=== PATIENT | female | born 1950 | race Caucasian/White ===

== ENCOUNTER 2024-04-11 14:04 | Inpatient (IN) ==
[2024-04-11] MEDS ORDERED: MAGNESIUM HYDROXIDE SUSP 30 ML UDC PO PRN (14:46)
[2024-04-11] MEDS ORDERED: ACETAMINOPHEN 325 MG TAB PO PRN (14:46)
[2024-04-11] MEDS ORDERED: POLYETHYLENE (MIRALAX) 17 GM PACK PO PRN (14:46)
--- NOTE | 2024-04-11 14:54 | History & Physical Report ---
<Statement entered by Trevin Moreno DO - 04/11/24 19:59> I have seen and examined the patient and have discussed the case with the advance practice provider. I have reviewed the advanced practitioner's documentation, and I agree with, and take responsibility for that plan of care. Patient seen on medical floor after being transferred from [place]. Reports excessive vomiting yesterday. Reeducated patient on need for n.p.o. status. Continue NG tube to LIS, IV fluids, surgical eval Plan of care as outlined below I spent a total of 14 minutes coordinating, documenting, and providing care for this patient excluding time spent by another provider/QHP. Date of Service April 11, 2024 Assessment & Plan (1) Small bowel obstruction: Plan: Concepcion Sellers is a 74y/o F with PMHx significant for hypothyroidism due to acquired atrophy of thyroid, HTN, HLD, uncomplicated asthma, GERD without esophagitis, SBO, vitamin B12 deficiency, lumbar DDD, plantar fasciitis, peripheral neuropathy, age-related osteoporosis, migraines, rheumatoid arthritis and history of LLE DVT/PE with pulmonary infarction (no longer on AC therapy) who is a direct transfer from [facility] with recurrent SBO requiring NG tube placement. CTAP results from [facility] obtained with the following impression: dilated fluid-filled small bowel loops suggestive of intestinal obstruction with the transitional zone suggested to be in the distal ileal loops at the mid-abdomen (immediately beneath the anterior abdominal wall). S/p 1L NSS at [facility]. NG tube placed at [facility]. Routine SBO management with NPO/bowel rest status and IVF. PRN pain control and antiemetics. Appreciate general surgery consult. (2) Hypothyroidism: Plan: Will need to resume home levothyroxine as able. (3) HTN (hypertension): Plan: Will need to resume home antihypertensives as able. Routine BP monitoring. PRN IV hydralazine 5mg Q4H for SBP>180. (4) Hyperlipidemia: Plan: Will need to resume home atorvastatin as able. (5) Rheumatoid arthritis: Plan: On Enbrel and Rinvoq - will need to resume these medications as able. DVT Prophylaxis: SCDs/TEDs for now. Code Status: FULL CODE PCP: Tawana Espinoza MD Disposition: Admit to Med/Surg for further inpatient evaluation and management. Resume additional home medications as/when able. Patient seen in collaboration with Dr. Moreno. Please see addendum. I spent a total of 50 minutes coordinating, documenting, and providing care for this patient excluding time spent in the performance of separately billed services or time spent by another provider/QHP. This included personally reviewing all current laboratories and imaging studies, medical reconciliation, outpatient chart review and discussion with specialists. This chart was completed in part utilizing Speech Voice Recognition Software. Grammatical errors, random word insertions, pronoun errors, and incomplete sentences are an occasional consequence of this system due to software limitations, ambient noise, and hardware issues. Any formal questions or concerns about the content, text, or information contained within the body of this dictation should be directly addressed to the provider for clarification. History of Present Illness Chief Complaint: Transfer from [facility]: Recurrent SBO Primary Care Provider: Tawana Espinoza MD Concepcion Sellers is a 74y/o F with PMHx significant for hypothyroidism due to acquired atrophy of thyroid, HTN, HLD, uncomplicated asthma, GERD without esophagitis, SBO, vitamin B12 deficiency, lumbar DDD, plantar fasciitis, peripheral neuropathy, age-related osteoporosis, migraines, rheumatoid arthritis and history of LLE DVT/PE with pulmonary infarction (no longer on AC therapy) who is a direct transfer from [facility] with recurrent SBO requiring NG tube placement. History obtained from the patient, paperwork provided by [facility] and associated chart review. Mentions she started to develop abdominal discomfort yesterday afternoon with pain across her lower abdominal region. She then started to experience numerous episodes of nausea and vomiting in the evening which prompted the call to EMS as she started to become quite dizzy. Mentions she vomited "well over 45 times." She was evaluated at [facility] and diagnosed with a SBO. NG tube was placed. [facility] unfortunately does not have general surgery services on-site, thus the reasoning for her transfer here to [facility]. CTAP results from [facility] obtained with the following impression: dilated fluid-filled small bowel loops suggestive of intestinal obstruction with the transitional zone suggested to be in the distal ileal loops at the mid-abdomen (immediately beneath the anterior abdominal wall). S/p 1L NSS at [facility]. This is her 4th SBO. Last SBO was about 10-12 years ago. All prior SBOs have been managed conservatively. PSHx significant for total abdominal hysterectomy at age 36, open cholecystectomy in her 20s and appendectomy. Last BM was yesterday afternoon - patient reports this was small and formed. Did pass some flatulence this afternoon. No further nausea/vomiting since NG tube was placed. Allergies Allergy/AdvReac Type Severity Reaction Status Date / Time amoxicillin Allergy Intermediate HIVES Verified 08/25/16 11:08 phenazopyridine Allergy Intermediate HIVES Verified 08/25/16 11:08 Nitrate Analogues Allergy Unknown Unverified 03/16/09 03:42 nitrofurantoin Allergy Unknown Unverified 03/16/09 03:42 propoxyphene Allergy Unknown Unverified 03/16/09 03:42 Home Medications Medication Instructions Recorded Confirmed Type ATORVASTATIN (LIPITOR) 20 mg PO DAILY #0 tabs 08/25/16 04/11/24 History albuterol sulfate 90 mcg/actuation 2 puff inhalation Q6H PRN SOB or 04/11/24 04/11/24 History aerosol inhaler Wheezing amlodipine 10 mg tablet 10 mg PO DAILY 04/11/24 04/11/24 History azelastine 137 mcg (0.1 %) nasal 1 spray intranasal BID 04/11/24 04/11/24 History spray calcium carb-ergocalciferol (vit 1 tab PO DAILY 04/11/24 04/11/24 History D2) 600 mg calcium-200 unit tablet cetirizine 10 mg tablet 10 mg PO DAILY 04/11/24 04/11/24 History cholecalciferol (vitamin D3) 25 25 mcg PO DAILY 04/11/24 04/11/24 History mcg (1,000 unit) tablet conjugated estrogens 0.625 mg/gram See Rx Instructions .Route .COMPLEX 04/11/24 04/11/24 History vaginal cream (Premarin) cyanocobalamin (vitamin B-12) 1,000 mcg PO DAILY 04/11/24 04/11/24 History 1,000 mcg tablet cyclosporine 0.05 % eye drops in a 1 drp ophthalmic (eye) Q12H 04/11/24 04/11/24 History dropperette (Restasis) esomeprazole magnesium 40 mg 40 mg PO DAILY 04/11/24 04/11/24 History capsule,delayed release etanercept 50 mg/mL (1 mL) 50 mg subcut WK 04/11/24 04/11/24 History subcutaneous pen injector (Enbredung Flaherty) fluticasone propionate 50 1 spray intranasal BID 04/11/24 04/11/24 History mcg/actuation nasal spray,suspension gabapentin 300 mg capsule 300 mg PO BID 04/11/24 04/11/24 History hydrocodone 5 mg-acetaminophen 325 1 tab PO Q12H PRN Back Pain 04/11/24 04/11/24 History mg tablet levothyroxine 25 mcg tablet 25 mcg PO DAILY 04/11/24 04/11/24 History (Euthyrox) linaclotide 290 mcg capsule 290 mcg PO QAM 04/11/24 04/11/24 History (Linzess) losartan 100 1 tab PO DAILY 04/11/24 04/11/24 History mg-hydrochlorothiazide 25 mg tablet metoprolol succinate 25 mg 25 mg PO DAILY 04/11/24 04/11/24 History tablet,extended release 24 hr montelukast 10 mg tablet 10 mg PO DAILY 04/11/24 04/11/24 History naloxegol 12.5 mg tablet (Movantik) 25 mg PO QAM 04/11/24 04/11/24 History oxybutynin chloride 5 mg tablet 5 mg PO BID 04/11/24 04/11/24 History plecanatide 3 mg tablet (Trulance) 3 mg PO DAILY 04/11/24 04/11/24 History polyethylene glycol 3350 17 gram 17 g PO DAILY 04/11/24 04/11/24 History oral powder packet (Miralax) propylene glycol 0.6 % eye drops 1 drp ophthalmic (eye) DAILY 04/11/24 04/11/24 History rizatriptan 10 mg tablet See Rx Instructions .Route 04/11/24 04/11/24 History .COMPLEX PRN Migraines semaglutide 0.25 mg or 0.5 mg (2 0.5 mg subcut WK 04/11/24 04/11/24 History mg/3 mL) subcutaneous pen injector (Ozempic) sucralfate 1 gram tablet 1 g PO QID 04/11/24 04/11/24 History topiramate 25 mg tablet (Topamax) 25 mg PO BID 04/11/24 04/11/24 History upadacitinib 15 mg tablet,extended 15 mg PO DAILY 04/11/24 04/11/24 History release 24 hr (Rinvoq) Past Med/Surg History Problem List Small bowel obstruction Medical History History of pulmonary embolism History of DVT (deep vein thrombosis) Migraines Plantar fasciitis Rheumatoid arthritis Osteoporosis Lumbar degenerative disc disease Vitamin B12 deficiency GERD (gastroesophageal reflux disease) Hyperlipidemia HTN (hypertension) Hypothyroidism Surgical History H/O abdominal hysterectomy Social History Smoking Status: Never smoker Hx Alcohol Use: No Hx Substance Use: No Preferred Language: Peruvian Communication Ability: Effective 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 Physical Exam Physical Exam: General: WD/WN, NAD, sitting up in bed, very pleasant, conversing appropriately. A+Ox3, euthymic affect. HEENT: Normocephalic, atraumatic. Conjunctivae normal. External ear and nose normal, oropharynx normal. Respiratory: Normal respiratory effort, lungs clear to auscultation. No accessory muscle use. Cardiovascular: Regular rate/rhythm, normal peripheral pulses, no BLE edema. Abdomen/GI: Hypoactive bowel sounds, soft, mild TTP across lower abdomen. Nondistended. + midline abdominal surgical scar. Extremities/Musculoskeletal: No cyanosis or clubbing, extremities motor strength intact, moves all extremities. Neurologic: No overt focal deficits, CN's II-XI not formally tested but appear grossly intact bilaterally. Results & Data Results & Data Vital Signs (Past 12 Hours) Vital Signs Temp Pulse Resp BP Pulse Ox O2 Del Method 04/11/24 16:36 37.1 C 83 16 135/85 94 Room Air Intake and Output 04/11/24 04/11/24 04/11/24 06:59 14:59 22:59 Other: Weight 77.111 kg Weight Measurement Method Built in [facility] Patient Weight 04/12/24 06:59 Weight 77.111 kg Laboratory Results Short CBC 04/11/24 Range/Units 16:04 WBC 8.18 (4.8-10.8) K/ul Hgb 12.7 (12.0-16.0) g/dl Hct 38.1 (37.0-47.0) % Plt Count 212 (130-400) K/uL BMP 04/11/24 16:04 Sodium 142 Potassium 3.7 Chloride 109 H Carbon Dioxide 28 BUN 17 Creatinine 1.04 Glucose 123 H Calcium 8.7 Code Status & VTE Plan Code Status FULL CODE VTE Prophylaxis Plan VTE Prophylaxis will be ordered: Yes (2) Hypothyroidism Hypothyroidism type: unspecified Qualified Code(s): E03.9 - Hypothyroidism, unspecified (3) HTN (hypertension) Hypertension type: unspecified Qualified Code(s): I10 - Essential (primary) hypertension (4) Hyperlipidemia Hyperlipidemia type: unspecified Qualified Code(s): E78.5 - Hyperlipidemia, unspecified (5) Rheumatoid arthritis Rheumatoid arthritis location: unspecified site Rheumatoid factor presence: unspecified presence Qualified Code(s): M06.9 - Rheumatoid arthritis, unspecified
[2024-04-11 16:37] LABS: Hematocrit (blood only) 38.1 % (37.0-47.0); Hemoglobin 12.7 g/dl (12.0-16.0); Mean Corpuscular Hemoglobin 31.1 pg (25.0-34.0); Mean Corpuscular Hgb Conc 33.3 g/dL (32.0-36.0); Mean Corpuscular Volume 93.4 fL (80.0-100.0); Mean Platelet Volume 10.3 fL (9.4-12.4); Platelet Count 212 K/uL (130-400); RDW Standard Deviation 51.8 fL (36.4-46.3); Red Blood Count 4.08 M/uL (4.20-5.40); White Blood Count 8.18 K/ul (4.8-10.8)
[2024-04-11 16:50] LABS: Anion Gap 5 (3-11); BUN Creatinine Ratio 16.3 (10-20); Blood Urea Nitrogen 17 mg/dl (6-23); Calcium 8.7 mg/dl (8.6-10.3); Carbon Dioxide 28 mmol/L (21-32); Chloride 109 mmol/L (98-107); Glucose 123 mg/dl (70-99(Fasting)); Potassium 3.7 mmol/L (3.5-5.1); Sodium 142 mmol/L (136-145)
--- NOTE | 2024-04-11 17:06 | Surgery Consultation ---
Date of Consultation April 11, 2024 Assessment & Plan (1) Small bowel obstruction: This is a 74yF with a PMH of rheumatoid arthritis, HTN, HLD, hypothyroidism, and asthma who presents to the [facility] as a direct admit on 04/11/24 from [facility] with concern for small bowel obstruction on CT scan imaging. She developed abdominal pain, nausea/vomiting that started yesterday. At [facility] she was imaged by CT scan which showed "dilated fluid-filled small bowel loops suggestive of intestinal obstruction. the transitional zone is suggested to be in the distal ileal loops in the mid-abdomen (immediately beneath the anterior abdominal wall)." Today she reports some ongoing mild nausea, but no recent em esis. She arrived with an NGT in place. She reports passing a small amount of gas today x1. She had a small BM yesterday. Patient reports a history of ~4 SBOs in the past, all managed conservatively, last one 12 years ago. Past surgery on the abdomen includes a total abdominal hysterectomy, open cholecystectomy (26years old), and appendectomy. The patient feels better than yesterday, but still sore. She has history of DVT/PE not on anticoagulation at this time. Today patient's blood work shows WBC 8,Hbg 12.7, K 3.7, Cr 1. Vital signs are stable with HRs 80s and stable pressures. On exam patient is pleasant and awake/alert and not in any distress. Her abdomen is soft, non distended, with mild discomfort elicited in the R mid abdomen and infra-umbilical regions. She has + low midline scar and prior open yayo scars noted. NGT is in place which should be connected to low intermittent wall suction. Would keep her NPO with IVF for today while awaiting more meaningful return of bowel function. May clamp NGT for her to walk the halls. Will repeat KUB tomorrow AM for further evaluation. At this time no acute surgical intervention is warranted. Hopefully she will continue to improve and get through this episode with conservative measures as she has in the past. Supervising Physician Co-Signing Physician Notes pnt d/w LAWRENCE, labs and imaging reviewed, agree with above. Admitted to [facility] for SBO, no surgery available at outside facility. Will treat non operatively for now, may need contrasted study if no improvement. History of Present Illness Attending Physician: Trevin Moreno DO History of Present Illness This is a 74yF with a PMH of rheumatoid arthritis, HTN, HLD, hypothyroidism, and asthma who presents to the [facility] as a direct admit on 04/11/24 from [facility] with concern for small bowel obstruction on CT scan imaging. The patient states she developed abdominal discomfort yesterday evening which then she developed nausea/vomiting. She said she vomited multiple times and it smelled like stool. She was dizzy and having chills with this. She was alone and called EMS who picked her up and took her to [facility] where she was imaged showing "dilated fluid-filled small bowel loops suggestive of intestinal obstruction. the transitional zone is suggested to be in the distal ileal loops in the mid- abdomen (immediately beneath the anterior abdominal wall)." The patient states her pain was 100/10 in severity. She denies any fevers, JACOBS, CP/SOB. She reports some ongoing mild nausea, but no recent emesis. She arrived with an NGT in place. She reports passing a small amount of gas today x1. She had a small BM yesterday. Patient reports a history of ~4 SBOs in the past, all managed conservatively, last one 12 years ago. Past surgery on the abdomen includes a total abdominal hysterectomy, open cholecystectomy (26years old), and appendectomy. The patient feels better than yesterday, but still sore. She has history of DVT/PE not on anticoagulation at this time. Allergies Allergy/AdvReac Type Severity Reaction Status Date / Time amoxicillin Allergy Intermediate HIVES Verified 08/25/16 11:08 phenazopyridine Allergy Intermediate HIVES Verified 08/25/16 11:08 Nitrate Analogues Allergy Unknown Unverified 03/16/09 03:42 nitrofurantoin Allergy Unknown Unverified 03/16/09 03:42 propoxyphene Allergy Unknown Unverified 03/16/09 03:42 Home Medications Medication Instructions Recorded Confirmed Type ATORVASTATIN (LIPITOR) 20 mg PO DAILY #0 tabs 08/25/16 04/11/24 History albuterol sulfate 90 mcg/actuation 2 puff inhalation Q6H PRN SOB or 04/11/24 04/11/24 History aerosol inhaler Wheezing amlodipine 10 mg tablet 10 mg PO DAILY 04/11/24 04/11/24 History azelastine 137 mcg (0.1 %) nasal 1 spray intranasal BID 04/11/24 04/11/24 History spray calcium carb-ergocalciferol (vit 1 tab PO DAILY 04/11/24 04/11/24 History D2) 600 mg calcium-200 unit tablet cetirizine 10 mg tablet 10 mg PO DAILY 04/11/24 04/11/24 History cholecalciferol (vitamin D3) 25 25 mcg PO DAILY 04/11/24 04/11/24 History mcg (1,000 unit) tablet conjugated estrogens 0.625 mg/gram See Rx Instructions .Route .COMPLEX 04/11/24 04/11/24 History vaginal cream (Premarin) cyanocobalamin (vitamin B-12) 1,000 mcg PO DAILY 04/11/24 04/11/24 History 1,000 mcg tablet cyclosporine 0.05 % eye drops in a 1 drp ophthalmic (eye) Q12H 04/11/24 04/11/24 History dropperette (Restasis) esomeprazole magnesium 40 mg 40 mg PO DAILY 04/11/24 04/11/24 History capsule,delayed release etanercept 50 mg/mL (1 mL) 50 mg subcut WK 04/11/24 04/11/24 History subcutaneous pen injector (Enbrel SureClick) fluticasone propionate 50 1 spray intranasal BID 04/11/24 04/11/24 History mcg/actuation nasal spray,suspension gabapentin 300 mg capsule 300 mg PO BID 04/11/24 04/11/24 History hydrocodone 5 mg-acetaminophen 325 1 tab PO Q12H PRN Back Pain 04/11/24 04/11/24 History mg tablet levothyroxine 25 mcg tablet 25 mcg PO DAILY 04/11/24 04/11/24 History (Euthyrox) linaclotide 290 mcg capsule 290 mcg PO QAM 04/11/24 04/11/24 History (Linzess) losartan 100 1 tab PO DAILY 04/11/24 04/11/24 History mg-hydrochlorothiazide 25 mg tablet metoprolol succinate 25 mg 25 mg PO DAILY 04/11/24 04/11/24 History tablet,extended release 24 hr montelukast 10 mg tablet 10 mg PO DAILY 04/11/24 04/11/24 History naloxegol 12.5 mg tablet (Movantik) 25 mg PO QAM 04/11/24 04/11/24 History oxybutynin chloride 5 mg tablet 5 mg PO BID 04/11/24 04/11/24 History plecanatide 3 mg tablet (Trulance) 3 mg PO DAILY 04/11/24 04/11/24 History polyethylene glycol 3350 17 gram 17 g PO DAILY 04/11/24 04/11/24 History oral powder packet (Miralax) propylene glycol 0.6 % eye drops 1 drp ophthalmic (eye) DAILY 04/11/24 04/11/24 History rizatriptan 10 mg tablet See Rx Instructions .Route 04/11/24 04/11/24 History .COMPLEX PRN Migraines semaglutide 0.25 mg or 0.5 mg (2 0.5 mg subcut WK 04/11/24 04/11/24 History mg/3 mL) subcutaneous pen injector (Ozempic) sucralfate 1 gram tablet 1 g PO QID 04/11/24 04/11/24 History topiramate 25 mg tablet (Topamax) 25 mg PO BID 04/11/24 04/11/24 History upadacitinib 15 mg tablet,extended 15 mg PO DAILY 04/11/24 04/11/24 History release 24 hr (Rinvoq) Patient History Medical History History of pulmonary embolism History of DVT (deep vein thrombosis) Migraines Plantar fasciitis Rheumatoid arthritis Osteoporosis Lumbar degenerative disc disease Vitamin B12 deficiency GERD (gastroesophageal reflux disease) Hyperlipidemia HTN (hypertension) Hypothyroidism Surgical History H/O abdominal hysterectomy Social History Smoking Status: Never smoker Hx Alcohol Use: No Hx Substance Use: No Preferred Language: Cook Islander Communication Ability: Effective 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 Beliefs That Will Affect Care: None Current Living Situation: Alone Feels Safe at Home: Yes Safety Concerns: Feels Safe At This Time Review of Systems Constitutional: + chills; no fever Respiratory: no dyspnea Cardiovascular: no chest pain Gastrointestinal: + abdominal pain, + bloating, + nausea, + vomiting and + constipation Physical Exam Physical Exam: awake/alert, no distress Respiratory: normal respiratory effort Gastrointestinal (Abdomen): Inspection/Auscultation: + abdominal surgical scar (from open yayo and infraumbilical midline scar); abdomen not distended Percussion/Palpation: + abdomen tender (mild discomfort in R mid abdomen and infraumbilical regions) and abdomen soft Results & Data Vital Signs (Past 12 Hours) Vital Signs Temp Pulse Resp BP Pulse Ox O2 Del Method 04/11/24 16:36 98.8 F 83 16 135/85 94 Room Air PG Care Time/CCT Total # of Minutes Spent Total Time Spent with Patient: Total time spent is greater than 50% in coordination of care (as documented) at patient's floor/unit and/or counseling patient: Coding Level of Care Code 33693 INT INP/OBS CARE MIN Diagnoses Small bowel obstruction K56.609
[2024-04-11] MEDS: SODIUM CHLORIDE 0.9% 1,000 ML IV SCH (17:14)
[2024-04-11] MEDS: Patient's HEIGHT &/or WEIGHT Needed SCH (17:14)
[2024-04-11] MEDS: ONDANSETRON INJ 2 MG/ML 2 ML VIAL IV PRN (17:56)
[2024-04-11] MEDS: KETOROLAC TROMETHAMINE 15 MG/ML VIAL IV PRN (17:56)
[2024-04-11] MEDS ORDERED: hydrALAZINE HCL 20 MG/ML VIAL IV PRN (19:02)
[2024-04-11] MEDS ORDERED: ARTIFICIAL TEARS OP PRN (19:15)
[2024-04-11] MEDS: MoRPHine SULFATE 2 MG/ML CARP IV PRN (19:35)
[2024-04-11] MEDS ORDERED: CHLORASEPTIC (PHENOL) 1.4% SOLN 180 ML BTL MT PRN (20:40)
--- OUTSIDE RECORDS SUMMARY | 2024-04-12 04:43 | External Medical Summary | Summary of Care ---
Author Name Unknown Organization [facility] Address [address] [facility] [place] [address] Phone [phone] Care Team Providers Care Mushroom Farmer Name Role Phone Tawana Mcgrath MD Primary Care Prov ider Reason for Visit * Reason Comments Outpatient Testing Encounter Details Date Type Department Care Team (Late st Contact Info) Description 04/04/2024 11:40 AM EST Laboratory Laboratory [address] [place] [phone] [place] [address] Lumbar degenerative disc disease Allergies Active Allergy Reactions Criticality Noted Date Comments Nitrofurantoin Rash 05/11/2015 Phenazopyridine Rash 05/11/2015 documented as of this encounter (statuses as of 04/04/2024) Medications losartan-hctz 100-25 mg per tab (HYZAAR) 100-25 MG per tabletIndications: HTN, goal below 150/90 Take 1 Tab by mouth daily. 30 Tab 5 12/18/19 18 Active Diclofenac Sodium 1 % gelIndications:Str ain of lumbar region, initial encounter Place 2 g topically on the skin 4 times a day. 1 Tube 1 03/02/19 19 Active RESTASIS 0.05 % ophthalmic emulsion PLACE ONE DROP IN EACH EYE TWICE DAILY 30 Each 11 08/11/19 19 Active Propylene Glycol 0.6 % Ophthalmic Solution Instill 1 Drop into eye in the morning. 04/20/19 19 Active BD LUER-DARRYL SYRINGE 25G X 5/8" 3 ML MISC Inject 1 Syringe under the skin Every Month. As directed. 0 10/01/19 19 Active polyethylene glycol 3350 (MIRALAX) 255 gram powderIndications: Constipation, unspecified constipation type Take 17 g by mouth daily. Dissolve one heaping tablespoon in 8 ounces of water or juice. 1 Bottle 2 02/18/19 20 Active EUTHYROX 25 MCG Tablet Take 1 Tablet by mouth in the morning. 06/29/19 20 Active Premarin 0.625 MG/GM Vaginal Cream APPLY 0.5 GRAMS VAGINALLY TWICE A WEEK 42.5 g 4 04/02/19 21 Active Calcium + D 500-1000-40 MG-UNT-MCG Oral Tablet Chewable (Calcium-Vitamin D-Vitamin K)Indications:Wris t fracture, closed, right, with delayed healing, subsequent encounter Take 1 Tab by mouth daily. 90 Tab 3 12/07/19 21 Active Azelastine HCl 0.1 % Nasal SolutionIndication s:Acute sinusitis, recurrence not specified, unspecified location SPRAY ONE SPRAY IN EACH NOSTRIL TWICE DAILY 30 mL 12 03/01/19 22 Active Cyanocobalamin 1000 MCG Oral Tablet (Cyanocobalamin) Take 1 Tablet by mouth in the morning. 07/17/19 22 Active Vitamin D (Cholecalciferol) 25 MCG (1000 UT) Oral Capsule Take by mouth . 07/17/19 22 Active Zoster Vac Recomb Adjuvanted 50 MCG/0.5ML Intramuscular Suspension Reconstituted (Shingrix)Indicati ons:Need for vaccination for zoster Inject 0.5 mL into a large muscle now and repeat dose in 60 to 180 days 1 Each 1 07/17/19 22 Active Additional Information Patient not taking.Reported on 03/14/2024 Rizatriptan Benzoate 10 MG Oral Tablet (Maxalt)Indication s:Migraine without aura and without status migrainosus, not intractable Take 1 Tablet by mouth as needed for Migraine. at onset of headache, may repeat every 2 hours up to 2 times. Up to 3 tablets in 24 hours 20 Tablet 3 02/11/19 23 Active Hydrocortisone (Perianal) 2.5 % External Cream (Procto-Med HC)Indications:Hem orrhoid Administer into the rectum 2 times a day. 28 g 5 01/01/20 23 Active Atorvastatin Calcium 20 MG Oral Tablet (Lipitor)Indicatio ns:Elevated LDL cholesterol level Take 1 Tablet by mouth in the morning. 90 Tablet 3 01/15/20 23 Active Fluticasone Propionate 50 MCG/ACT Nasal Suspension (Flonase) PLACE TWO SPRAYS IN EACH NOSTRIL DAILY 48 g 1 05/06/19 24 Active Montelukast Sodium 10 MG Oral Tablet (Singulair)Indicat ions:Chronic maxillary sinusitis,Allergy to environmental factors Take 1 Tablet by mouth in the morning. 90 Tablet 3 07/01/19 24 Active Sucralfate 1 GM Oral Tablet (Carafate)Indicati ons:Gastroesophage al reflux disease without esophagitis,Epigas tric pain Take 1 Tablet by mouth 4 times a day before meals and at bedtime. half an hour before meals and at bedtime 360 Tablet 3 07/01/19 24 Active Metoprolol Succinate ER 25 MG Oral Tablet Extended Release 24 Hour (toPROL XL)Indications:HTN , goal below 150/90 TAKE ONE TABLET BY MOUTH EVERY MORNING 90 Tablet 2 10/06/19 24 Active Ondansetron HCl 8 MG Oral TabletIndications: Nausea and vomiting, unspecified vomiting type Take 1 Tablet by mouth every 12 hours as needed for Nausea. 20 Tablet 11/05/19 24 Active Potassium Chloride ER 10 MEQ Oral Capsule Extended ReleaseIndications :Hypokalemia Take 1 Capsule by mouth in the morning. 90 Capsule 3 01/01/20 24 Active amLODIPine Besylate 10 MG Oral Tablet (Norvasc)Indicatio ns:HTN, goal below 150/90 TAKE ONE TABLET BY MOUTH EVERY MORNING 90 Tablet 1 01/05/20 24 Active Cetirizine HCl 10 MG Oral Tablet (ZyrTEC) TAKE ONE TABLET BY MOUTH EVERY MORNING 30 Tablet 5 01/17/20 24 Active Albuterol Sulfate HFA 108 (90 Base) MCG/ACT Inhalation Aerosol SolutionIndication s:History of pulmonary embolism Inhale 2 Puffs by mouth every 6 hours as needed for Shortness of Breath. 8.5 g 3 02/09/19 25 Active Movantik 25 MG Oral Tablet Take 1 Tablet by mouth in the morning. 12/11/19 24 Active Trulance 3 MG Oral Tablet Take 1 Tablet by mouth in the morning. 12/09/19 24 Active oxyBUTYnin Chloride 5 MG Oral Tablet (Ditropan) Take 1 Tablet by mouth in the morning and 1 Tablet before bedtime. 01/06/20 24 Active hydroCHLOROthiazid e 25 MG Oral Tablet (Hydrodiuril) Take 1 Tablet by mouth in the morning. 12/19/19 24 Active Topiramate 25 MG Oral Tablet (topAMAX)Indicatio ns:Migraine without aura and without status migrainosus, not intractable TAKE ONE TABLET BY MOUTH IN THE MORNING AND AT BEDTIME 60 Tablet 5 03/21/19 25 Active Esomeprazole Magnesium 40 MG Oral Capsule Delayed ReleaseIndications :Gastroesophageal reflux disease without esophagitis TAKE ONE CAPSULE BY MOUTH IN THE MORNING, ONE HOUR BEFORE THE FIRST MEAL OF THE DAY 90 Capsule 1 03/30/19 25 Active Enbrel SureClick 50 MG/ML Subcutaneous Solution Auto-injector (Etanercept) Inject 1 pen(s) subcutaneously once weekly. 12 mL 04/04/19 25 Active HYDROcodone-Acetam inophen 5-325 MG Oral TabletIndications: Degeneration of intervertebral disc of lumbar region with discogenic back pain Take 1 Tablet by mouth every 12 hours as needed for Pain, Mild. 60 Tablet 04/04/19 25 Active Minoxidil 2.5 MG Oral Tablet (Loniten)Indicatio ns:Hair loss Take 0.5 Tablets by mouth in the morning. 45 Tablet 04/04/19 25 Active Hospital, Clinic, or Other Facility Administered Medication Ordered Dose Route Frequency Start Date End Date Status Albuterol Sulfate (Proventil) (2.5 MG/3ML) 0.083% inhalation solution 2.5 mgIndications:Uncomplic ated asthma, unspecified asthma severity, unspecified whether persistent 2.5 mg NEBULIZER ONCE PRN 04/04/2024 04/04/2025 Active documented as of this encounter (statuses as of 04/04/2024) Active Problems Problem Noted Date Diagnosed Date Hypothyroidism 04/04/2024 Age-related osteoporosis wit hout current pathological fracture 04/04/2024 Uncomplicated asthma 04/04/2024 Nausea and/or vomiting 01/14/2023 Family history of carotid artery stenosis 2022 Controlled substance agreement signed 10/04/2021 Chest pain 01/23/2021 Multiple lipomas 12/06/2020 Wrist fracture, closed, righ t, with delayed healing, subsequent encounter 12/06/2020 Closed fracture of right upp er extremity with delayed healing 08/23/2020 Pure hypercholesterolemia 02/18/2019 Left thyroid nodule 01/22/2019 Overview (07/16/2021): Last US 06/2020. Repeat in 2022. 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 d 05/11/2015 documented as of this encounter (statuses as of 04/04/2024) Resolved Problems Problem Noted Date Diagnosed Date Resolved Date Prediabetes 09/17/2020 10/23/2022 Overview: Per Prediabetes protocol MEDICATION USE AGREEMENT 03/26/201701/2019 DM type 2 with diabetic peripheral neuropathy 06/20/19 17 02/20/2019 Intestinal adhesions with obstruction 05/11/2015 07/30/2017 Peripheral neuropathy 05/11/20152016 Type 2 diabetes mellitus wit h hemoglobin A1c goal of less than 7.0% 05/11/2015 02/20/2019 Overview (06/05/2015): ICD-10 update of inactive term documented as of this encounter (statuses as of 04/04/2024) Immunizations Name Administration Dates Next Due COVID-19 mRNA, LNP-s, No Pre serve, 2-Dose Series ([employer]) 01/07/2021,03/19/2020,02/27/2020 Pneumococcal Conjugate Vacc, 13 Valent (Prevnar) 11/13/2016 Pneumococcal Polysaccharide PPV23 (Pneumovax) 03/20/2015 Season Influenza, Quad, PF, Adjuvanted, 65+ Yrs, IM (FLUAD) 02/06/2020 Seasonal Influenza Vac., MDV , IM, 0.5 mL (Fluzone) 11/17/2014 Seasonal Influenza, High Dos e, Trivalent, PF, IM (Fluzone HD) 11/24/2023 Seasonal Influenza, PF, 6 M & above, IM , (FluLaval or Fluzone) 12/03/2017,11/13/2016 Seasonal Influenza, Quadriva lent Hd (Fluzone Hd) 04/22/2023,01/15/2022,12/06/2020 Seasonal Influenza, Quadriva lent, No Preserve, IM 11/17/2014 Seasonal Influenza, Quadriva lent,with Preserve, 3 yr & above, IM 02/07/2016 Seasonal Influenza, Trivalen t, Adjuvanted, 65+ YRS, PF, (Fluad) 10/18/2018 TDAP (age 10 and older)(Boostrix) 07/07/2017 documented as of this encounter Social History Tobacco Use Types Packs/Day Years Used Date Smoking Tobacco: Former Smokeless Tobacco: Never Comments:smoked a couple vj es as teenager Alcohol Use Standard Drinks/Week Comments Never 0 (1 standard drink = 0.6 oz pur e alcohol) AUDIT-C Answer Date Recorded Frequency of Alcohol Consumption Never 10/27/2018 Average Number of Drinks Not on file 019 Frequency of Binge Drinking Not on file 10/10 PHQ-2 Answer Date Recorded PHQ Adult Total Score 1 03/14/2024 Hunger Vital Sign Answer Date Recorded Within the past 12 months, y ou worried that your food would run out before you got the money to buy more. Never true 03/14/19 25 Within the past 12 months, t he food you bought just didn't last and you didn't have money to get more. Never true 03/14/2024 Childcare Answer Date Recorded Do you feel overwhelmed with taking care of a child, family member or friend? No 03/14/2024 Does your family need help f inding childcare? (Household - for ages 0-17 years) Not on file 03/14/2024 Clothing Answer Date Recorded Have you been unable to get clothing when it was really needed? No 03/14/2024 Is your family able to get c lothes or diapers when needed? (Household - for ages 0-17 years) Not on file 03/14/2024 Personal Safety Answer Date Recorded Do you feel unsafe or have concerns for your saf ety? No 03/14/2024 Do you have concerns for you r family's safety? (Household - for ages 0-17 years) Not on file 03/14/2024 Utilities Answer Date Recorded Do you have trouble paying y our heating, water, or electric bill? No 03/14/2024 Is your family able to pay t he heat, water, or electric bill? (Household - for ages 0-17 years) Not on file 03/14/2024 Does your family have access to good internet? (Household - for ages 0-17 years) Not on file 03/14/2024 Employment Status Answer Date Recorded Are you unemployed or without regular income? No 03/14/2024 Does the household have a re lar source of income? (Household - for ages 0-17 years) Not on file 03/14/2024 Social Connections Answer Date Recorded How often do you feel lonely or isolated from th ose around you? Never 03/14/2024 Financial Resource Strain Answer Date R ecorded Do you have any trouble payi ng for your medications, or do you think you might in the future? No 03/14/2024 Does your family have troubl e paying for medicine? (Household - for ages 0-17 years) Not on file 03/14/2024 Transportation Needs Answer Date Record ed Do you have trouble getting a ride to medical visits or work? (Adult - for ages 18 years and over) Not on file 03/14/2024 Does your family have a hard time getting a ride to doctors visits? (Household - for ages 0-17 years) Not on file 03/14/2024 Has lack of transportation k ept you from medical appointments, meetings, work, or from getting things needed for daily living? Check all that apply. No 03/14/2024 Do you (or your family) have trouble finding or paying for a ride (transportation)? (Household - for ages 0-17 years) Not on file 03/14/2024 Housing Stability Answer Date Recorded Do you currently live in a s helter or have no steady place to sleep at night? No 03/14/2024 Do you think you are at risk of becoming homeless? (Adult - for ages 18 years and over) Not on file 03/14/2024 Does your family worry about paying for your home or becoming homeless? (Household - for ages 0-17 years) Not on file 0 03/14/2024 Are you homeless or worried that you might be in the future? No 03/14/2024 Are you (or your family) dayna eless or worried that you might be in the future? (Household - for ages 0-17 years) Not on file Food Insecurity Answer Date Recorded Do you need food for this week? No 03/14/2024 Are you able to get enough f ood for your family? (Household - for ages 0-17 years) Not on file 03/14/2024 Does your family need food t his week? (Household - for ages 0-17 years) Not on file 03/14/2024 Do you always have enough fo od for your family? (Household - for ages 0-17 years) Not on file 03/14/2024 Food Insecurity Answer Date Recorded Within the past 12 months, y ou worried that your food would run out before you got the money to buy more. Never true 03/14/19 25 Within the past 12 months, t he food you bought just didn't last and you didn't have money to get more. Never true 03/14/2024 Do you need food for this week? No 03/14/2024 Comments No Sex and Gender Information Value Date Recorded Sex Assigned at Female 06/08/2018 5:03 PM EDT Legal Sex Female 7:07 AM EST Gender Identity Female 06/08/2018 5:03 PM EDT Sexual Orientation Straight 06/08/2018 5: 03 PM EDT documented as of this encounter Plan of Treatment Upcoming Encounters Date Type Department Care Team (Late st Contact Info) Description 04/13/2024 10:00 AM EST Telemedicine Sleep Disorders Ctr [facility] [address] [phone] Elizabeth Escoto DO [address] [place] [phone] 04/14/2024 11:00 AM EST Office Visit Orthopaedics [address] [phone] Trav Ramirez MD [address] [place] [phone] 04/25/2024 10:00 AM EDT PulmDiagnostic Pulmonary Function Lab, [facility] [address] [place] [address] [place], Pulm Function Tech [address] [place] [id number] 05/18/2024 10:30 AM EDT Imaging Radiology [facility] [address] [place] [phone] 07/25/2024 9:00 AM EDT Office Visit [address] [place] [phone] Tawana Mcgrath MD [address] [place] [address] [place] [phone] Pending Results Name Type Priority Associated Diagnoses Date /Time PAIN MANAGEMENT DRUG PANEL, URINE W/ INTERPRETATION Lab Routine Lumbar degenerative disc disease 04/04/2024 11:38 AM EST EXTRA URINE ALIQUOT Lab Routine Lumbar degenerative disc disease 04/04/2024 11:38 AM EST Health Maintenance Due Date Last Done Comments Zoster Vaccines (1 of 2) 1969 Cologuard 1995 Fecal Occult Blood Test 1995 Sigmoidoscopy 1995 Adult Wellness Visit 02/23/2016 COVID-19 Vaccine ( season) 2023 01/07/2021, 03/19/2020, 02/27/2020 Mammogram 05/17/2024 05/18/2023, 0 08/2022, 02/14/2021, Additional history exists GFR 11/23/2024 11/24/2023, 0 08/2023, 10/17/2022, Additional history exists TSH 11/23/2024 11/24/2023, 06/09, 10/17/2022, Additional history exists Depression Screening 03/14/2025 03/14/2024 Albumin/Creatinine Ratio 10/17/2025 023, 01/15/2022, 02/18/2019, Additional history exists DXA Scan 02/18/2026 02/19/2024, 07/08/2017 DTap/Tdap Vaccines (2 - Td or Tdap) 07/08/2027 07/07/2017 Lipid Panel 11/23/2028 11/24/2023, 09/0 09/2022, 07/16/2021, Additional history exists Colonoscopy 07/13/2033 07/14/2023, 09/06/2013 Colorectal Cancer Screening 07/13/2033 Pneumococcal Vaccine: 50+ Years Completed 11/13/2016, 03/20/2015 VITAMIN D LEVEL ONCE IN A LIFETIME-USE SMARTSET# [id number] Completed 12/17/2017 Influenza Vaccine (FLU shot) Completed , 04/22/2023, 01/15/2022, Additional history exists HPV (Gardasil) Vaccine Aged Out No lo nger eligible based on patient's age to complete this topic Hepatitis B Vaccine Aged Out No longe r eligible based on patient's age to complete this topic MENINGOCOCCAL (MENACTRA/MENVEO) Aged Out No longer eligible based on patient's age to complete this topic Meningitis B Vaccine (Bexsero/Trumemba) Aged Out No longer eligible based on patient's age to complete this topic documented as of this encounter Medical Devices Not on filedocumented as of this encounter Visit Diagnoses Diagnosis Lumbar degenerative disc disease Degeneration of lumbar or lumbosacral intervertebral disc Screening mammogram for breast cancer documented in this encounter Care Teams Mushroom Farmer Relationship Specialty Start Date End Date Tawana Mcgrath MD [address] [place] [address] [place] [id number] PCP - General Family Medicine 12/25/20 documented as of this encounter
--- OUTSIDE RECORDS SUMMARY | 2024-04-12 04:43 | External Medical Summary | Summary of Care ---
Author Name Unknown Organization [facility] Address [address] [place] [address] Phone [phone] Care Team Providers Care Leather Patcher Name Role Phone Tawana Mcgrath MD Primary Care Prov ider Reason for Referral * Evaluate & Treat - Unlimited Visits (Within 10 days (routine)) - Authorized Specialty Diagnoses / Procedures Referred By Contac t Referred To Contact Sleep Medicine / Sleep Disorders Diagnoses Daytime somnolence Obstructive sleep apnea of adult Tawana Mcgrath MD [address] [place] [address] [place] [address] Phone: tel: fax: Referral ID Status Reason Start Date Expiration Date Visits Requested Visits Authorized [id number] Authorized Specialty Services Required 04/04/2024 2 2 Question Answer Referral Priority Within 10 days (routine) Where should this appointment be scheduled? [facility] CAD SLEEP MED ADULT REFERRAL Sleep Apnea Testing and Management Does the patient snore and/or gasp at night or has been told they stop breathing at night? Yes, document patient's symptoms in progress note Reason for Visit * Reason Comments Acute Encounter Details Date Type Department Care Team (Latest Contact Info) Description 04/04/2024 10:40 AM EST Office Visit Family Medicine [address] [place] [address] [phone] Tawana Mcgrath MD [address] [place] [address] [place] [address] Daytime somnolence*; Obstructive sleep apnea of adult; Migraine without aura and without status migrainosus, not intractable; HTN, goal below 150/90; Hypothyroidism, unspecified type; Age-related osteoporosis without current pathological fracture; Pure hypercholesterolemia; Rheumatoid arthritis with negative rheumatoid factor, involving unspecified site (HCC); Uncomplicated asthma, unspecified asthma severity, unspecified whether persistent; Hip pain, left; Degeneration of intervertebral disc of lumbar region with discogenic back pain; Hair loss Allergies Active Allergy Reactions Criticality Noted Date Comments Nitrofurantoin Rash 05/11/2015 Phenazopyridine Rash 05/11/2015 documented as of this encounter (statuses as of 04/04/2024) Medications losartan-hctz 100-25 mg per tab (HYZAAR) 100-25 MG per tabletIndications :HTN, goal below 150/90 Take 1 Tab by mouth daily. 30 Tab 5 12/18/19 18 Active Diclofenac Sodium 1 % gelIndications:St rain of lumbar region, initial encounter Place 2 [...] Active polyethylene glycol 3350 (MIRALAX) 255 gram powderIndications :Constipation, unspecified constipation type Take 17 g by [...] 500-1000-40 MG-UNT-MCG Oral Tablet Chewable (Calcium-Vitamin D-Vitamin K)Indications:Wri st fracture, closed, right, with delayed healing, subsequent encounter Take 1 Tab by mouth daily. 90 Tab 3 12/07/19 21 Active Azelastine HCl 0.1 % Nasal SolutionIndicatio ns:Acute sinusitis, recurrence not specified, unspecified location SPRAY ONE SPRAY IN EACH NOSTRIL TWICE DAILY 30 mL 12 03/01/19 22 Active Cyanocobalamin 1000 MCG Oral Tablet (Cyanocobalamin) Take 1 Tablet by mouth in the morning. 07/17/19 22 Active Vitamin D (Cholecalciferol) 25 MCG (1000 UT) Oral Capsule Take by mouth . 07/17/19 22 Active Zoster Vac Recomb Adjuvanted 50 MCG/0.5ML Intramuscular Suspension Reconstituted (Shingrix)Indicat ions:Need for vaccination for zoster Inject 0.5 mL into a large muscle now and repeat dose in 60 to 180 days 1 Each 1 07/17/19 22 Active Additional Information Patient not taking.Reported on 03/14/2024 Rizatriptan Benzoate 10 MG Oral Tablet (Maxalt)Indicatio ns:Migraine without aura and without status migrainosus, not intractable Take 1 Tablet by mouth as needed for Migraine. at onset of headache, may repeat every 2 hours up to 2 times. Up to 3 tablets in 24 hours 20 Tablet 3 02/11/19 23 Active Hydrocortisone (Perianal) 2.5 % External Cream (Procto-Med HC)Indications:He morrhoid Administer into the rectum 2 times a day. 28 g 5 01/01/20 23 Active Atorvastatin Calcium 20 MG Oral Tablet (Lipitor)Indicati ons:Elevated LDL cholesterol level Take 1 Tablet by mouth in the morning. 90 Tablet 3 01/15/20 23 Active Fluticasone Propionate 50 MCG/ACT Nasal Suspension (Flonase) PLACE TWO SPRAYS IN EACH NOSTRIL DAILY 48 g 1 05/06/19 24 Active Montelukast Sodium 10 MG Oral Tablet (Singulair)Indica tions:Chronic maxillary sinusitis,Allergy to environmental factors Take 1 Tablet by mouth in the morning. 90 Tablet 3 07/01/19 24 Active Sucralfate 1 GM Oral Tablet (Carafate)Indicat ions:Gastroesopha geal reflux disease without esophagitis,Epiga stric pain Take 1 Tablet by mouth 4 times a day before meals and at bedtime. half an hour before meals and at bedtime 360 Tablet 3 07/01/19 24 Active Metoprolol Succinate ER 25 MG Oral Tablet Extended Release 24 Hour (toPROL XL)Indications:HT N, goal below 150/90 TAKE ONE TABLET BY MOUTH EVERY MORNING 90 Tablet 2 10/06/19 24 Active Ondansetron HCl 8 MG Oral TabletIndications :Nausea and vomiting, unspecified vomiting type Take 1 Tablet by mouth every 12 hours as needed for Nausea. 20 Tablet 11/05/19 24 Active Potassium Chloride ER 10 MEQ Oral Capsule Extended ReleaseIndication s:Hypokalemia Take 1 Capsule by mouth in the morning. 90 Capsule 3 01/01/20 24 Active amLODIPine Besylate 10 MG Oral Tablet (Norvasc)Indicati ons:HTN, goal below 150/90 TAKE ONE TABLET BY MOUTH EVERY MORNING 90 Tablet 1 01/05/20 24 Active Cetirizine HCl 10 MG Oral Tablet (ZyrTEC) TAKE ONE TABLET BY MOUTH EVERY MORNING 30 Tablet 5 01/17/20 24 Active Albuterol Sulfate HFA 108 (90 Base) MCG/ACT Inhalation Aerosol SolutionIndicatio ns:History of pulmonary embolism Inhale 2 Puffs by [...] 1 Tablet before bedtime. 01/06/20 24 Active hydroCHLOROthiazi de 25 MG Oral Tablet (Hydrodiuril) Take 1 Tablet by mouth in the morning. 12/19/19 24 Active Topiramate 25 MG Oral Tablet (topAMAX)Indicati ons:Migraine without aura and without status migrainosus, not intractable TAKE ONE TABLET BY MOUTH IN THE MORNING AND AT BEDTIME 60 Tablet 5 03/21/19 25 Active Esomeprazole Magnesium 40 MG Oral Capsule Delayed ReleaseIndication s:Gastroesophagea l reflux disease without esophagitis TAKE ONE CAPSULE BY MOUTH IN THE MORNING, ONE HOUR BEFORE THE FIRST MEAL OF THE DAY 90 Capsule 1 03/30/19 25 Active Enbrel SureClick 50 MG/ML Subcutaneous Solution Auto-injector (Etanercept) Inject 1 pen(s) subcutaneously once weekly. 12 mL 04/04/19 25 Active HYDROcodone-Aceta minophen 5-325 MG Oral TabletIndications :Degeneration of intervertebral disc of lumbar region with discogenic back pain Take 1 Tablet by mouth every 12 hours as needed for Pain, Mild. 60 Tablet 04/04/19 25 Active Minoxidil 2.5 MG Oral Tablet (Loniten)Indicati ons:Hair loss Take 0.5 Tablets by mouth in the morning. 45 Tablet 04/04/19 25 Active Benzonatate 100 MG Oral Capsule (Tessalon Perles) Take 1 Capsule by mouth 3 times a day as needed for Cough. Do not cut, crush, or chew. 50 Capsule 1 02/17/19 24 025 Disconti nued(Pat ient preferen ce/disco ntinuati on) Rinvoq 15 MG Oral Tablet Extended Release 24 Hour (Upadacitinib ER) Take by mouth daily. 025 Disconti nued(Pat ient preferen ce/disco ntinuati on) Linzess 290 MCG Oral Capsule (linaCLOtide)Leora cations:Chronic constipation TAKE ONE CAPSULE BY MOUTH BEFORE BREAKFAST 90 Capsule 1 05/12/19 24 025 Disconti nued(Pat ient preferen ce/disco ntinuati on) Movantik 12.5 MG Oral Tablet (Naloxegol Oxalate) Take 1 Tablet by mouth in the morning. 11/24/19 24 025 Disconti nued(Pat ient preferen ce/disco ntinuati on) Minoxidil 2.5 MG Oral Tablet (Loniten)Indicati ons:Hair loss Take 0.5 Tablets by mouth in the morning. 45 Tablet 11/30/19 24 025 Disconti nued(Ref ill) Doxycycline Hyclate 100 MG Oral CapsuleIndication s:Acute frontal sinusitis, recurrence not specified Take 1 Capsule by mouth in the morning and 1 Capsule before bedtime. Do all this for 7 days. Take for 7 days. 14 Capsule 12/08/19 24 025 Disconti nued(Pat ient preferen ce/disco ntinuati on) HYDROcodone-Aceta minophen 5-325 MG Oral TabletIndications :Lumbar degenerative disc disease Take 1 Tablet by mouth every 12 hours as needed for Pain, Mild. 60 Tablet 03/03/19 25 025 Disconti nued(Ref ill) valACYclovir HCl 500 MG Oral Tablet (Valtrex) Take 1 Tablet by mouth 2 times a day as needed. 12/23/19 24 025 Disconti nued(Helen seaman ce/petersono shireen on) Hospital, Clinic, or Other Facility Administered Medication [...] mRNA, LNP-s, No Pre serve, 2-Dose Series ([place]) 01/07/2021,03/19/2020,02/27/2020 Pneumococcal Conjugate Vacc, 13 Valent (Prevnar) [...] 03/14/2024 Does the household have a re gular source of income? (Household - for ages [...] PM EDT documented as of this encounter Last Filed Vital Signs Vital Sign Reading Time Taken Comments Blood Pressure 130/70 04/04/2024 10:24 AM EST Pulse 60 04/04/2024 10:24 AM EST Temperature 36 C (96.8 F) 04/04/2024 10:24 AM EST Respiratory Rate 16 04/04/2024 10:24 AM EST Oxygen Saturation - - Inhaled Oxygen Concentration - - Weight 77.6 kg (171 lb) 04/04/2024 10:24 AM EST Height 156.5 cm (5' 1.6") 04/04/2024 10:24 AM ES T Body Mass Index 31.68 04/04/2024 10:24 AM EST documented in this encounter Progress Notes * Jesus Hawkins, Tawana Diaz MD - 04/04/2024 10:55 AM EST Images from the original note were not included. Subjective Concepcion Sellers is a 74 year old female that presents for Acute History of Present Illness The patient, with a history of hypertension, asthma, rheumatoid arthritis, and cholelithiasis, presents with persistent leg pain that has been present for about three to four weeks. The pain originates from the hip and radiates down the leg, causing significant discomfort and sleep disturbances. The patient had previously been evaluated for a potential blood clot, but the results were negative. The patient also reports bilateral elbow pain, with a clicking sound noted in the right elbow. The patient has a history of tendonitis in both elbows and has previously received injections for pain relief. The patient also reports episodes of difficulty breathing during sleep, describing it as a sensation of not breathing and needing to catch a breath. These episodes occur mostly during sleep but have occasionally occurred while awake. The patient uses an albuterol inhaler for immediate relief. The patient reports feeling tired all the time and has a history of asthma. The patient also expresses concerns about weight management and has been on Wegovy for weight loss.However, the patient's insurance has denied coverage for this medication. The patient has been advised to consult with a vice president lending for a diet plan to aid in weight loss. The patient also has concerns about potential thyroid and carotid artery issues, given a family history of stroke and personal history of thyroid nodules. However, recent blood work and carotid duplex were reported as normal. Objective Vitals: 04/04/24 1024 Temp: 96.8 F (36 C) Pulse: 60 Resp: 16 BP: 130/70 BMI: 31.67 Physical Exam VITALS: BP- 130/70 NECK: Thyroid normal. CARDIOVASCULAR: Heart regular rate and rhythm, normal heart sounds. ABDOMEN: Abdomen soft, normal bowel sounds. I have reviewed the following results: Results LABS TSH: 1.03 (11/2023) LDL: 81 (11/2023) Blood glucose: 5.5 (11/2023) RADIOLOGY Carotid duplex: Normal (04/2022) Assessment and Plan Assessment & Plan Left Hip Pain Persistent pain radiating down the leg, possibly secondary to a pinched nerve or hip pathology. No recent trauma or injury reported. -Order hip X-ray to evaluate for any structural abnormalities. Tendonitis in Elbows Reports of clicking in the right elbow and previous treatment with injections. Discussed potential surgical intervention but patient prefers conservative management. -Refer to orthopedics for further evaluation and potential injection therapy. Asthma Reports of episodes of waking up unable to breathe, relieved by albuterol. No current wheezing or coughing. -Order pulmonary function tests to assess current lung function. -Consider referral to sleep medicine for evaluation of potential sleep apnea. Chronic Pain Management Currently on hydrocodone for pain management, requires urine drug screen for continued prescription. -Order urine drug screen. -Renew hydrocodone prescription. Hair Loss Currently on minoxidil, requests renewal. -Renew minoxidil prescription. Gallstones Reports of previous cholelithiasis and annual MRCP for surveillance. -Continue with annual MRCP as recommended by gastroenterology. Follow-up Patient has a follow-up appointment scheduled in July. -Continue current management and reassess during [place] follow-up appointment. Daytime somnolence (Primary) - SLEEP MEDICINE REFERRAL OP Obstructive sleep apnea of adult - SLEEP MEDICINE REFERRAL OP Migraine without aura and without status migrainosus, not intractable HTN, goal below 150/90 Hypothyroidism, unspecified type Age-related osteoporosis without current pathological fracture Pure hypercholesterolemia Rheumatoid arthritis with negative rheumatoid factor, involving unspecified site (HCC) Uncomplicated asthma, unspecified asthma severity, unspecified whether persistent - SPIROMETRY B/A BRONCHODILATOR; Future; Expected date: 04/11/2024 - Albuterol Sulfate (Proventil) (2.5 MG/3ML) 0.083% inhalation solution 2.5 mg Hip pain, left - XR HIP BILAT MIN 5 VIEWS INCLUDING AP OF PELVIS Lumbar degenerative disc disease - HYDROcodone-Acetaminophen 5-325 MG Oral Tablet; Take 1 Tablet by mouth every 12 hours as needed for Pain, Mild. - PAIN MANAGEMENT DRUG PANEL, URINE W/ INTERPRETATION; Future; Expected date: 04/04/2024 Hair loss - Minoxidil 2.5 MG Oral Tablet (Loniten); Take 0.5 Tablets by mouth in the morning. Wrap-Up Check-out note: Schedule the nutrition visit Time: I spent a total of 30-39 minutes (exact time 37 mins) on the date of service in preparation, delivery, and documentation of the care provided to Concepcion Sellers excluding any time spent in the performance of separately billed services. Text in this note was generated using an ambient documentation service. I discussed the use of a device to record and summarize our discussion today. All persons present during the encounter consented to its use. documented in this encounter Nursing Notes * China Aguiar RN - 04/04/2024 10:25 AM EST Acute visit for ongoing left leg pain had a doppler in [place] Also has tendonitis in her elbows, saw Ortho for this 2-3 years ago documented in this encounter Plan of Treatment Upcoming Encounters Date Type Department Care Team (Late st Contact Info) Description 04/13/2024 10:00 AM EST Telemedicine Sleep Disorders Ctr [facility] [address] [place] [phone] Elizabeth Escoto DO [address] [place] [phone] 04/14/2024 11:00 AM EST Office Visit Orthopaedics [address] [phone] Trav Ramirez MD [address] [place] [phone] 04/25/2024 10:00 AM EDT PulmDiagnostic Pulmonary Function Lab, [facility] [address] [place] [address] [place], Pulm Function Tech [facility] [place] [address] 05/18/2024 10:30 AM EDT Imaging Radiology [address] [place] [phone] 07/25/2024 9:00 AM EDT Office Visit Family Medicine [address] [phone] Tawana Mcgrath MD [address] [place] [address] [place] [address] Pending Results Name Type Priority Associated Diagnoses Date /Time XR HIP BILAT MIN 5 VIEWS INCLUDING AP OF PELVIS Medical Imaging Routine Hip pain, left 04/04/2024 11:30 AM EST PAIN MANAGEMENT DRUG PANEL, URINE W/ INTERPRETATION Lab Routine Lumbar degenerative disc disease 04/04/2024 11:38 AM EST Scheduled Orders Name Type Priority Associated Diagnoses Orde r Schedule SPIROMETRY B/A BRONCHODILATOR Procedures Routine Uncomplicated asthma, unspecified asthma severity, unspecified whether persistent Expected: 04/11/2024, Expires: 05/02/2025 PAIN MANAGEMENT DRUG PANEL, URINE W/ INTERPRETATION Lab Routine Degeneration of intervertebral disc of lumbar region with discogenic back pain Expected: 04/04/2024, Expires: 04/04/2025 Scheduled Referrals Name Type Priority Associated Diagnoses Orde r Schedule SLEEP MEDICINE REFERRAL OP Referral Within 10 days (routine) Daytime somnolence Obstructive sleep apnea of adult Ordered: 04/04/2024 Health Maintenance Due Date Last Done Comments Zoster Vaccines (1 of 2) 1969 Cologuard 1995 Fecal Occult Blood Test 1995 Sigmoidoscopy 1995 Adult Wellness Visit 02/23/2016 COVID-19 Vaccine ( season) 2023 01/07/2021, 03/19/2020, 02/27/2020 Mammogram 05/17/2024 05/18/2023, 040 08/2022, 02/14/2021, Additional history exists GFR 11/23/2024 11/24/2023, 060 08/2023, 10/17/2022, Additional history exists TSH 11/23/2024 11/24/2023, 1 07/2023, 10/17/2022, Additional history exists Depression Screening 03/14/2025 [...] D LEVEL ONCE IN A LIFETIME-USE SMARTSET# [id number] Completed 12/17/2017 Influenza Vaccine (FLU shot) Completed [...] as of this encounter Visit Diagnoses Diagnosis Daytime somnolence- Primary Hypersomnia, unspecified Obstructive sleep apnea of adult Obstructive sleep apnea (adult) (pediatric) Migraine without aura and without status migrainosus, not intractable Migraine without aura, without mention of intractable migraine without mention of status migrainosus HTN, goal below 150/90 Hypothyroidism, unspecified type Age-related osteoporosis without current pathological fracture Senile osteoporosis Pure hypercholesterolemia Rheumatoid arthritis with negative rheumatoid factor, involving unspecified site (HCC) Uncomplicated asthma, unspecified asthma severity, unspecified whether persistent Hip pain, left Pain in joint, pelvic region and thigh Degeneration of intervertebral disc of lumbar region with discogenic back pain Hair loss Alopecia, unspecified Screening mammogram for breast cancer documented in this encounter Care Teams Leather Patcher Relationship Specialty Start Date End Date Tawana Mcgrath MD [address] [place] [address] [place] [address] PCP - General Family Medicine 12/25/20 documented as of this encounter
--- OUTSIDE RECORDS SUMMARY | 2024-04-12 04:43 | External Medical Summary | Summary of Care ---
Author Name Unknown Organization [facility] Address [address] [facility] [place] [address] Phone [phone] Care Team Providers Care Livestock Yard Supervisor Name Role Phone Tawana Mcgrath MD Primary Care Prov ider Reason for Visit * Reason Onset Date Comments Returning Call 04/07/2024 Encounter Details Date Type Department Care Team (Late st Contact Info) Description 04/07/2024 Telephone Sleep Disorders Ctr [facility] [address] [place] [phone] Elizabeth Escoto DO [address] [place] [address] Returning Call Allergies Active Allergy Reactions Criticality Noted Date Comments Nitrofurantoin Rash 05/11/2015 Phenazopyridine Rash 05/11/2015 documented as of this encounter (statuses as of 04/07/2024) Medications losartan-hctz 100-25 mg per tab (HYZAAR) [...] 1 pen(s) subcutaneously once weekly. 12 mL 5 8:53 AM EST 04/04/19 25 Active HYDROcodone-Acetam inophen 5-325 MG [...] as of this encounter (statuses as of 04/07/2024) Active Problems Problem Noted Date Diagnosed Date [...] as of this encounter (statuses as of 04/07/2024) Resolved Problems Problem Noted Date Diagnosed Date [...] as of this encounter (statuses as of 04/07/2024) Immunizations Name Administration Dates Next Due COVID-19 mRNA, LNP-s, No Pre serve, 2-Dose Series (EQUIP Advantage) 01/07/2021,03/19/2020,02/27/2020 Pneumococcal Conjugate Vacc, 13 Valent (Prevnar) [...] PM EDT documented as of this encounter Miscellaneous Notes * Telephone Encounter - Ursula Tamayo LPN - 04/07/2024 3:34 PM EST Pre-visit nurse call completed. * Telephone Encounter - Kayli Luna OSA - 04/07/2024 2:47 PM EST Patient returning May's call. Please call [phone] documented in this encounter Plan of Treatment Upcoming Encounters Date Type Department Care Team (Late st Contact Info) Description 04/13/2024 10:00 AM EST Telemedicine Sleep Disorders Ctr [facility] [address] [place] [phone] Elizabeth Escoto DO [address] [place] [address] 04/14/2024 11:00 AM EST Office Visit Orthopaedics [address] [phone] Trav Ramirez MD [address] [place] [phone] 04/22/2024 10:30 AM EDT PulmDiagnostic Ancillary [address] [place] [address] [place], [address] [place] [address] 05/18/2024 10:30 AM EDT Imaging Radiology [address] [place] [phone] 07/25/2024 9:00 AM EDT Office Visit Family Medicine [address] [place] [phone] Tawana Mcgrath MD [address] [place] [address] [place] [address] Health Maintenance Due Date Last Done Comments Zoster Vaccines (1 of 2) 1969 Cologuard 1995 Fecal Occult Blood Test 1995 Sigmoidoscopy 1995 Adult Wellness Visit 02/23/2016 COVID-19 Vaccine ( season) 2023 01/07/2021, 03/19/2020, 02/27/2020 *SPIROMETRY ONCE FOR ASTHMA-ADULT 04/07/2024 Mammogram 05/17/2024 05/18/2023, 0 08/2022, 02/14/2021, Additional history exists GFR 11/23/2024 11/24/2023, 0 08/2023, 10/17/2022, Additional history exists TSH 11/23/2024 11/24/2023, 06/09, 10/17/2022, Additional history exists Depression Screening 03/14/2025 03/14/2024 Albumin/Creatinine Ratio 10/17/2025 023, 01/15/2022, 02/18/2019, Additional history exists DXA Scan 02/18/2026 02/19/2024, 07/08/2017 DTap/Tdap Vaccines (2 - Td or Tdap) 07/08/2027 07/07/2017 Lipid Panel 11/23/2028 11/24/2023, 09/2022, 07/16/2021, Additional history exists Colonoscopy 07/13/2033 07/14/2023, 09/06/2013 Colorectal Cancer Screening 07/13/2033 Pneumococcal Vaccine: 50+ Years Completed 11/13/2016, 03/20/2015 VITAMIN D LEVEL ONCE IN A LIFETIME-USE SMARTSET# [id number] Completed 12/17/2017 Influenza Vaccine (FLU shot) Completed [...] Not on filedocumented as of this encounter Care Teams Livestock Yard Supervisor Relationship Specialty Start Date End Date Tawana Mcgrath MD [address] [place] [address] [place] [phone] PCP - General Family Medicine 12/25/20 documented as of this encounter
--- OUTSIDE RECORDS SUMMARY | 2024-04-12 04:43 | External Medical Summary ---
Author Name Unknown Address Unknown Organization [id number]:[facility] [place] [address] [facility] [address] Laboratory Report Ordering Provider Test Date Status TYLER ENAMORADO 04/04/2024 11:38:12 Final Drugs that require complianc e testing:

Opioids:
Hydrocodone: Quantity 1 Date/Time of last Dose last night

Benzodiazepines
None

Cutoff Concentrations:
Drug Level
Amphetamines 500 ng/mL
Benzodiazepines 100 ng/mL
Cannabinoids 50 ng/mL
Cocaine Metabolite 150 ng/mL
Fentanyl 1 ng/mL
Hydrocodone / Hydromorphone 300 ng/mL
Methadone Metabolite 100 ng/mL
Morphine / Codeine 300 ng/mL
Oxycodone / Oxymorphone 100 ng/mL

Screening results are presumptive and can only be used for medical purposes. Confirmatory testing is available upon request. Observation Date Value Abnormality Reference (Units) Status COMPLIANCE INTERPRETATION 04/04/2024 11:38:12 Based on the medication information provided: Final COMPLIANCE INTERPRETATION 04/04/2024 11:38:12 The presence of hydrocodone, dihydrocodeine and hydromorphone is CONSISTENT with hydrocodone use. Final Changed Report: Previously r eported on 04/05/2024 at 1349 EST. See Results History in EPIC for previous versions of the report. Amphetamines, Urine screen 04/04/2024 11:38:12 Negative Negative Final Benzodiazepines, Urine screen 04/04/2024 11:38:12 Negative Negative Final Cannabinoids, Urine screen 04/04/2024 11:38:12 Negative Negative Final Cocaine Metabolite, Urine screen 04/04/2024 11:38:12 Negative Negative Final fentaNYL [Presence] in Urine by Screen method 04/04/2024 11:38:12 Negative Negative Final HYDROcodone [Presence] in Urine by Screen method 04/04/2024 11:38:12 Refer to confirmation results Abnormal Negative Final 5-Qdqsygqqsu-4,5-Dimeth yl-3,3-Diphenylpyrrolid ine (EDDP) [Presence] in Urine 04/04/2024 11:38:12 Negative Negative Final Opiates, Urine screen 04/04/2024 11:38:12 Refer to confirmation results Abnormal Negative Final oxyCODONE [Presence] in Urine by Screen method 04/04/2024 11:38:12 Refer to confirmation results Abnormal Negative Final FORENSIC VALID INTERPRETATION 04/04/2024 11:38:12 Normal Final Creatinine, Urine 04/04/2024 11:38:12 74 (mg/dL) Final Performing Location [facility] [place] [facility] [address] [facility] [address]
--- OUTSIDE RECORDS SUMMARY | 2024-04-12 04:44 | External Medical Summary | Summary of Care ---
Author Name Unknown Organization [facility] Address [address] [place] [address] Phone [phone] Care Team Providers Care Drag Seiner Name Role Phone Tawana Ladd MD Primary Care Prov ider Reason for Referral * Medication Prior Authorization - Closed Specialty Diagnoses / Procedures Referred By Contac t Referred To Contact Diagnoses Lumbar degenerative disc disease Tawana Ladd MD [address] [place] [address] [place] [address] Phone: tel: fax: Referral ID Status Reason Start Date Expiration Date Visits Re quested Visits Authorized [id number] Closed 999 999 Reason for Visit * Reason Onset Date Comments Medication Refill 03/02/2024 Medication Pre-auth 03/03/2024 Encounter Details Date Type Department Care Team (Late st Contact Info) Description 03/02/2024 Refill Family Medicine [address] [place] [phone] Tawana Ladd MD [address] [place] [address] [place] [phone] Lumbar degenerative disc disease Allergies Active Allergy Reactions Criticality Noted Date Comments Nitrofurantoin Rash 05/11/2015 Phenazopyridine Rash 05/11/2015 documented as of this encounter (statuses as of 03/04/2024) Medications losartan-hctz 100-25 mg per tab (HYZAAR) [...] days 1 Each 1 07/17/19 22 Active Rizatriptan Benzoate 10 MG Oral Tablet (Maxalt)Indicatio [...] morning. 90 Tablet 3 01/15/20 23 Active Benzonatate 100 MG Oral Capsule (Tessalon Perles) Take 1 Capsule by mouth 3 times a day as needed for Cough. Do not cut, crush, or chew. 50 Capsule 1 02/17/19 24 Active Rinvoq 15 MG Oral Tablet Extended Release 24 Hour (Upadacitinib ER) Take by mouth daily. Active Fluticasone Propionate 50 MCG/ACT Nasal Suspension (Flonase) PLACE TWO SPRAYS IN EACH NOSTRIL DAILY 48 g 1 05/06/19 24 Active Linzess 290 MCG Oral Capsule (linaCLOtide)Leora cations:Chronic constipation TAKE ONE CAPSULE BY MOUTH BEFORE BREAKFAST 90 Capsule 1 05/12/19 24 Active Montelukast Sodium 10 MG Oral [...] MORNING 90 Tablet 2 10/06/19 24 Active Topiramate 25 MG Oral Tablet (topAMAX)Indicati ons:Migraine without aura and without status migrainosus, not intractable TAKE ONE TABLET BY MOUTH IN THE MORNING AND AT BEDTIME 60 Tablet 5 10/06/19 24 Active Esomeprazole Magnesium 40 MG Oral Capsule Delayed ReleaseIndication s:Gastroesophagea l reflux disease without esophagitis TAKE ONE CAPSULE BY MOUTH IN THE MORNING, ONE HOUR BEFORE THE FIRST MEAL OF THE DAY 90 Capsule 1 10/08/19 24 Active Ondansetron HCl 8 MG Oral TabletIndications :Nausea and vomiting, unspecified vomiting type Take 1 Tablet by mouth every 12 hours as needed for Nausea. 20 Tablet 11/05/19 24 Active Movantik 12.5 MG Oral Tablet (Naloxegol Oxalate) Take 1 Tablet by mouth in the morning. 11/24/19 24 Active Minoxidil 2.5 MG Oral Tablet (Loniten)Indicati ons:Hair loss Take 0.5 Tablets by mouth in the morning. 45 Tablet 11/30/19 24 Active Amoxicillin-Pot Clavulanate 875-125 MG Oral Tablet (Augmentin) Take 1 Tablet by mouth in the morning and 1 Tablet before bedtime. 14 Tablet 12/24/19 24 Active Potassium Chloride ER 10 MEQ [...] MORNING 30 Tablet 5 01/17/20 24 Active Ozempic (0.25 or 0.5 MG/DOSE) 2 MG/3ML Solution Pen-injector (Semaglutide(0.25 or 0.5MG/DOS))Indica tions:Prediabetes ,Obesity, Class I, BMI 30.0-34.9 (see actual BMI) Inject 0.5 mg under the skin once a week. 3 mL 5 02/08/20 24 Active Albuterol Sulfate HFA 108 (90 Base) MCG/ACT Inhalation Aerosol SolutionIndicatio ns:History of pulmonary embolism Inhale 2 Puffs by mouth every 6 hours as needed for Shortness of Breath. 8.5 g 3 02/09/19 25 Active HYDROcodone-Aceta minophen 5-325 MG Oral TabletIndications :Lumbar degenerative disc disease Take 1 Tablet by mouth every 12 hours as needed for Pain, Mild. 60 Tablet 03/03/19 25 Active HYDROcodone-Aceta minophen 5-325 MG Oral TabletIndications :Lumbar degenerative disc disease Take 1 Tablet by mouth every 12 hours as needed for Pain, Mild. 60 Tablet 02/01/20 24 025 Discontin ued(Refil l) documented as of this encounter (statuses as of 03/04/2024) Active Problems Problem Noted Date Diagnosed Date Nausea and/or vomiting 01/14/2023 Family history of [...] as of this encounter (statuses as of 03/04/2024) Resolved Problems Problem Noted Date Diagnosed Date [...] as of this encounter (statuses as of 03/04/2024) Immunizations Name Administration Dates Next Due COVID-19 mRNA, LNP-s, No Pre serve, 2-Dose Series (Pfizer) 01/07/2021,03/19/2020,02/27/2020 Pneumococcal Conjugate Vacc, 13 Valent (Prevnar) [...] Answer Date Recorded PHQ Adult Total Score 0 06/13/2020 Hunger Vital Sign Answer Date Recorded Worried About Running Out of Food in the Last Ye ar Never true 12/30/2018 Ran Out of Food in the Last Year Never true 12/30/2018 Utilities Answer Date Recorded Do you have trouble paying y our heating, water, or electric bill? (Adult - for ages 18 years and over) Not on file 07/28/2023 Is your family able to pay t he heat, water, or electric bill? (Household - for ages 0-17 years) Not on file 07/28/2023 Does your family have access to good internet? (Household - for ages 0-17 years) Not on file 07/28/2023 Social Connections Answer Date Recorded How often do you feel lonely or isolated from those around you? (Adult - for ages 18 years and over) Not on file 07/28/2023 Comments No Sex and Gender Information Value Date Recorded Sex Assigned at Female 06/08/2018 5:03 PM EDT Legal Sex Female 7:07 AM EST Gender Identity Female 06/08/2018 5:03 PM EDT Sexual Orientation Straight 06/08/2018 5: 03 PM EDT documented as of this encounter Miscellaneous Notes * Telephone Encounter - Sola Clark CMA - 03/04/2024 7:25 AM EST Requested prior auth on center rx * Telephone Encounter - Malathi Huang PHARM Tech - 03/03/2024 4:05 PM EST Patient calling to inform doctor that the patient's insurance will not pay for this medication without a completed prior authorization. Did confirm this information with the pharmacy. Pt's current insurance information is as follows: Patient name: Concepcion Sellers ID number: [id number] BIN number: [id number] PCN number: [id number] Group number: N/A Subscriber name: Concepcion Sellers Primary or Secondary Insurance:Primary Medication: Hydrocodone-Acetaminophen 5-325 mg Reason for Request: required Pharmacy and phone number: [facility] Rx plan and phone number: Kieranmarielena [phone] Is this a new medication for the patient? No. How did the patient obtain the medication on the lastfill? The patient used a different insurance last time. They used [facility]. What alternative medications does the pharmacy have in stock?: n/a Juan, Malathi Huang [employer] [facility] ([facility]) 03/03/2024,4:05 PM * Telephone Encounter - Tawana Ladd MD - 03/03/2024 8:34 AM EST Signed Prescriptions: Disp Refills HYDROcodone-Acetaminophen 5-325 MG Oral Ta*60 Tab*0 Sig: Take 1 Tablet by mouth every 12 hours as needed for Pain, Mild. Authorizing Provider: TAWANA LADD * Telephone Encounter - Jeanine Wall RPh - 03/02/2024 8:35 PM ESTPending Prescriptions: Disp Refills HYDROcodone-Acetaminophen 5-325 MG Oral Ta*60 Tab*0 Sig: Take 1 Tablet by mouth every 12 hours as needed for Pain, Mild. * Telephone Encounter - Jeanine Wall RPh - 03/02/2024 8:34 PM EST I have reviewed the patients controlled substance dispensing history in the Prescription Drug Monitoring Program in compliance with the [place] regulations before prescribing a controlled substance. PDMP checked on 03/02/2024. Pending Prescriptions: Disp Refills HYDROcodone-Acetaminophen 5-325 MG Oral T*60 Tab*0 Sig: Take 1 Tablet by mouth every 12 hours as needed for Pain, Mild. Last Visit: 12/08/2023 (in office), Visit date not found (telemedicine) Next Visit: 07/25/2024 Date medication was last filled: 02/01/24 Date medication is due for refill: 03/01/24 Pharmacy: [facility] OLIVA GONZALES Is this request for a controlled substance? Yes and Urine Drug Screen Not completed Toxicology results: Results for orders placed or performed in visit on 01/15/22 PAIN MANAGEMENT DRUG PANEL, URINE W/ INTERPRETATION Result Value Compliance Interpretation Based on the medication information provided: The presence of hydrocodone, dihydrocodeine and hydromorphone is CONSISTENT with hydrocodone use. Amphetamines Screen, U Negative Benzodiazepines Screen, U Negative Cannabinoids Screen, U Negative Cocaine Metabolite Screen, U Negative Fentanyl Screen, U Refer to confirmation results (A) Hydrocodone Screen, U Refer to confirmation results (A) Methadone Metabolite Screen, U Negative Morphine/Codeine Screen, U Refer to confirmation results (A) Oxycodone Screen, U Refer to confirmation results (A) Valid Interpretation Normal Creatinine, U 166 Narrative Cutoff Concentrations: Drug Level Amphetamines 500 ng/mL Benzodiazepines 100 ng/mL Cannabinoids 50 ng/mL Cocaine Metabolite 150 ng/mL Fentanyl 1 ng/mL Hydrocodone / Hydromorphone 300 ng/mL Methadone Metabolite 100 ng/mL Morphine / Codeine 300 ng/mL Oxycodone / Oxymorphone 100 ng/mL Screening results are presumptive and can only be used for medical purposes. Confirmatory testing is available upon request. Please approve if appropriate. Jeanine Martinez PharmD Clinical Pharmacist [facility] [phone] 03/02/2024, 8:35 PM documented in this encounter Plan of Treatment Upcoming Encounters Date Type Department Care Team (Late st Contact Info) Description 05/18/2024 10:30 AM EDT Imaging Radiology [place] [address] [address] [place] [phone] 07/25/2024 9:00 AM EDT Office Visit Family Medicine [address] [place] [phone] Tawana Ladd MD [address] [place] [address] [place] [address] Health Maintenance Due Date Last Done Comments Cologuard 1995 Fecal Occult Blood Test 1995 Sigmoidoscopy 1995 Zoster Vaccines (1 of 2) 02/23/2000 Adult Wellness Visit 02/23/2016 Depression Screening 06/13/2021 06/13/2020 COVID-19 Vaccine ( season) 2023 01/07/2021, 03/19/2020, 02/27/2020 Mammogram 05/17/2024 05/18/2023, 040 08/2022, 02/14/2021, Additional history exists GFR 11/23/2024 11/24/2023, 0 08/2023, 10/17/2022, Additional history exists TSH 11/23/2024 11/24/2023, 051 07/2023, 10/17/2022, Additional history exists Albumin/Creatinine Ratio 10/17/2025 023, 01/15/2022, 02/18/2019, Additional history exists DTap/Tdap Vaccines (2 - Td or Tdap) 07/08/2027 07/07/2017 Lipid Panel 11/23/2028 11/24/2023, 090 09/2022, 07/16/2021, Additional history exists DXA Scan 02/18/2031 02/19/2024, 07/08/2017 Colonoscopy 07/13/2033 07/14/2023, 09/06/2013 Colorectal Cancer Screening 07/13/2033 Pneumococcal Vaccine: 50+ Years Completed 11/13/2016, 03/20/2015 Influenza Vaccine (FLU shot) Completed , 04/22/2023, [...] cancer documented in this encounter Care Teams Drag Seiner Relationship Specialty Start Date End Date Tawana Ladd MD [address] [place] [address] [place] [phone] PCP - General Family Medicine 12/25/20 documented as of this encounter
--- OUTSIDE RECORDS SUMMARY | 2024-04-12 04:44 | External Medical Summary | Summary of Care ---
Author Name Unknown Organization [facility] Address [address] [facility] [place] [address] Phone [phone] Care Team Providers Care Yield Loss Inspector Name Role Phone Tawana Mcgrath MD Primary Care Prov ider Reason for Visit * Reason Onset Date Comments Pre Cert/Prior Auth 03/14/2024 Ozempic Encounter Details Date Type Department Care Team (Late st Contact Info) Description 03/14/2024 Telephone Family Medicine [address] [phone] Tawana Mcgrath MD [address] [place] [address] [place] [phone] Pre Cert/Prior Auth (Ozempic) Allergies Active Allergy Reactions Criticality Noted Date Comments Nitrofurantoin Rash 05/11/2015 Phenazopyridine Rash 05/11/2015 documented as of this encounter (statuses as of 03/23/2024) Medications losartan-hctz 100-25 mg per tab (HYZAAR) 100-25 MG per tabletIndication s:HTN, goal below 150/90 Take 1 Tab by mouth daily. 30 Tab 5 018 Active Diclofenac Sodium 1 % gelIndications:S train of lumbar region, initial encounter Place 2 g topically on the skin 4 times a day. 1 Tube 1 019 Active RESTASIS 0.05 % ophthalmic emulsion PLACE ONE DROP IN EACH EYE TWICE DAILY 30 Each 11 07/02/2 019 Active Propylene Glycol 0.6 % Ophthalmic Solution Instill 1 Drop into eye in the morning. Active BD LUER-DARRYL SYRINGE 25G X 5/8" 3 ML MISC Inject 1 Syringe under the skin Every Month. As directed. 0 Active polyethylene glycol 3350 (MIRALAX) 255 gram powderIndication s:Constipation, unspecified constipation type Take 17 g by mouth daily. Dissolve one heaping tablespoon in 8 ounces of water or juice. 1 Bottle 2 Active EUTHYROX 25 MCG Tablet Take 1 Tablet by mouth in the morning. Active Premarin 0.625 MG/GM Vaginal Cream APPLY 0.5 GRAMS VAGINALLY TWICE A WEEK 42.5 g 4 Active Calcium + D 500-1000-40 MG-UNT-MCG Oral Tablet Chewable (Calcium-Vitamin D-Vitamin K)Indications:Wr ist fracture, closed, right, with delayed healing, subsequent encounter Take 1 Tab by mouth daily. 90 Tab 3 Active Azelastine HCl 0.1 % Nasal SolutionIndicati ons:Acute sinusitis, recurrence not specified, unspecified location SPRAY ONE SPRAY IN EACH NOSTRIL TWICE DAILY 30 mL 12 Active Cyanocobalamin 1000 MCG Oral Tablet (Cyanocobalamin) Take 1 Tablet by mouth in the morning. Active Vitamin D (Cholecalciferol ) 25 MCG (1000 UT) Oral Capsule Take by mouth . Active Zoster Vac Recomb Adjuvanted 50 MCG/0.5ML Intramuscular Suspension Reconstituted (Shingrix)Indica tions:Need for vaccination for zoster Inject 0.5 mL into a large muscle now and repeat dose in 60 to 180 days 1 Each 1 Active Additional Information Patient not taking.Reported on 03/14/2024 Rizatriptan Benzoate 10 MG Oral Tablet (Maxalt)Indicati ons:Migraine without aura and without status migrainosus, not intractable Take 1 Tablet by mouth as needed for Migraine. at onset of headache, may repeat every 2 hours up to 2 times. Up to 3 tablets in 24 hours 20 Tablet 3 023 Active Hydrocortisone (Perianal) 2.5 % External Cream (Procto-Med HC)Indications:H emorrhoid Administer into the rectum 2 times a day. 28 g 5 023 Active Atorvastatin Calcium 20 MG Oral Tablet (Lipitor)Indicat ions:Elevated LDL cholesterol level Take 1 Tablet by mouth in the morning. 90 Tablet 3 023 Active Benzonatate 100 MG Oral Capsule (Tessalon Perles) Take 1 Capsule by mouth 3 times a day as needed for Cough. Do not cut, crush, or chew. 50 Capsule 1 024 Active Additional Information Patient not taking.Reported on 03/14/2024 Rinvoq 15 MG Oral Tablet Extended Release 24 Hour (Upadacitinib ER) Take by mouth daily. Active Fluticasone Propionate 50 MCG/ACT Nasal Suspension (Flonase) PLACE TWO SPRAYS IN EACH NOSTRIL DAILY 48 g 1 024 Active Linzess 290 MCG Oral Capsule (linaCLOtide)Ind ications:Chronic constipation TAKE ONE CAPSULE BY MOUTH BEFORE BREAKFAST 90 Capsule 1 024 Active Montelukast Sodium 10 MG Oral Tablet (Singulair)Indic ations:Chronic maxillary sinusitis,Allerg y to environmental factors Take 1 Tablet by mouth in the morning. 90 Tablet 3 024 Active Sucralfate 1 GM Oral Tablet (Carafate)Indica tions:Gastroesop hageal reflux disease without esophagitis,Epig astric pain Take 1 Tablet by mouth 4 times a day before meals and at bedtime. half an hour before meals and at bedtime 360 Tablet 3 024 Active Metoprolol Succinate ER 25 MG Oral Tablet Extended Release 24 Hour (toPROL XL)Indications:H TN, goal below 150/90 TAKE ONE TABLET BY MOUTH EVERY MORNING 90 Tablet 2 024 Active Esomeprazole Magnesium 40 MG Oral Capsule Delayed ReleaseIndicatio ns:Gastroesophag eal reflux disease without esophagitis TAKE ONE CAPSULE BY MOUTH IN THE MORNING, ONE HOUR BEFORE THE FIRST MEAL OF THE DAY 90 Capsule 1 024 Active Ondansetron HCl 8 MG Oral TabletIndication s:Nausea and vomiting, unspecified vomiting type Take 1 Tablet by mouth every 12 hours as needed for Nausea. 20 Tablet 024 Active Movantik 12.5 MG Oral Tablet (Naloxegol Oxalate) Take 1 Tablet by mouth in the morning. Active Minoxidil 2.5 MG Oral Tablet (Loniten)Indicat ions:Hair loss Take 0.5 Tablets by mouth in the morning. 45 Tablet Active Potassium Chloride ER 10 MEQ Oral Capsule Extended ReleaseIndicatio ns:Hypokalemia Take 1 Capsule by mouth in the morning. 90 Capsule 3 Active amLODIPine Besylate 10 MG Oral Tablet (Norvasc)Indicat ions:HTN, goal below 150/90 TAKE ONE TABLET BY MOUTH EVERY MORNING 90 Tablet 1 Active Cetirizine HCl 10 MG Oral Tablet (ZyrTEC) TAKE ONE TABLET BY MOUTH EVERY MORNING 30 Tablet 5 Active Albuterol Sulfate HFA 108 (90 Base) MCG/ACT Inhalation Aerosol SolutionIndicati ons:History of pulmonary embolism Inhale 2 Puffs by mouth every 6 hours as needed for Shortness of Breath. 8.5 g 3 Active HYDROcodone-Acet aminophen 5-325 MG Oral TabletIndication s:Lumbar degenerative disc disease Take 1 Tablet by mouth every 12 hours as needed for Pain, Mild. 60 Tablet Active Movantik 25 MG Oral Tablet Take 1 Tablet by mouth in the morning. Active valACYclovir HCl 500 MG Oral Tablet (Valtrex) Take 1 Tablet by mouth 2 times a day as needed. Active Trulance 3 MG Oral Tablet Take 1 Tablet by mouth in the morning. Active oxyBUTYnin Chloride 5 MG Oral Tablet (Ditropan) Take 1 Tablet by mouth in the morning and 1 Tablet before bedtime. Active hydroCHLOROthiaz debby 25 MG Oral Tablet (Hydrodiuril) Take 1 Tablet by mouth in the morning. Active Topiramate 25 MG Oral Tablet (topAMAX)Indicat ions:Migraine without aura and without status migrainosus, not intractable TAKE ONE TABLET BY MOUTH IN THE MORNING AND AT BEDTIME 60 Tablet 5 024 2024 Discontinued Ozempic (0.25 or 0.5 MG/DOSE) 2 MG/3ML Solution Pen-injector (Semaglutide(0.2 5 or 0.5MG/DOS))Indic ations:Prediabet es,Obesity, Class I, BMI 30.0-34.9 (see actual BMI) Inject 0.5 mg under the skin once a week. 3 mL 5 024 2024 Discontinued(F ormulary/Cost) documented as of this encounter (statuses as of 03/23/2024) Active Problems Problem Noted Date Diagnosed Date [...] as of this encounter (statuses as of 03/23/2024) Resolved Problems Problem Noted Date Diagnosed Date [...] as of this encounter (statuses as of 03/23/2024) Immunizations Name Administration Dates Next Due COVID-19 [...] encounter Miscellaneous Notes * Telephone Encounter - Michele Bryant PHARM Tech - 03/23/2024 11:39 AM EST [facility] called in requesting fax number. Thank you, Michele Bryant Technical System Analyst [facility] [address] [place] [address], [address] [place] [phone] 03/23/2024, 11:39 AM * Telephone Encounter - China Aguiar RN - 03/14/2024 3:17 PM EST Prior auth needed for demetrio, on provider desk for a signature( she is out of town for 1 week) documented in this encounter Plan of Treatment Upcoming Encounters Date Type Department Care Team (Late st Contact Info) Description 03/24/2024 11:00 AM EST Office Visit Orthopaedics [address] [phone] Trav Ramirez MD [address] [place] [phone] 05/18/2024 10:30 AM EDT Imaging Radiology [address] [place] [phone] 07/25/2024 9:00 AM EDT Office Visit Family Medicine [address] [phone] Tawana Mcgrath MD [address] [place] [address] [place] [address] Health Maintenance Due Date Last Done Comments Cologuard 1995 Fecal Occult Blood Test 1995 Sigmoidoscopy 1995 Zoster Vaccines (1 of 2) 02/23/2000 Adult Wellness Visit 02/23/2016 COVID-19 Vaccine ( season) 2023 01/07/2021, 03/19/2020, 02/27/2020 Mammogram 05/17/2024 05/18/2023, 0 08/2022, 02/14/2021, Additional history exists GFR 11/23/2024 11/24/2023, 08/2023, 10/17/2022, Additional history exists TSH 11/23/2024 11/24/2023, 06/09, 10/17/2022, Additional history exists Depression Screening 03/14/2025 03/14/2024 Albumin/Creatinine Ratio 10/17/2025 023, 01/15/2022, 02/18/2019, Additional history exists DTap/Tdap Vaccines (2 - Td or Tdap) 07/08/2027 07/07/2017 Lipid Panel 11/23/2028 11/24/2023, 0 09/2022, 07/16/2021, Additional history exists DXA Scan [...] filedocumented as of this encounter Care Teams Yield Loss Inspector Relationship Specialty Start Date End Date Tawana Mcgrath MD [address] [place] [address] [place] [address] PCP - General Family Medicine 12/25/20 documented as of this encounter
--- OUTSIDE RECORDS SUMMARY | 2024-04-12 04:44 | External Medical Summary | Summary of Care ---
Author Name Unknown Organization [facility] Address [address] [place] [address] Phone [phone] Care Team Providers Care Surgical Attendant Name Role Phone Kelsea [place] MD Primary Care Prov ider Reason for Visit * Reason Comments eRx-Medication Refill Encounter Details Date Type Department Care Team (Late st Contact Info) Description 03/29/2024 Refill Family Medicine [address] [phone] Kelsea [place] MD [address] [place] [address] [place] [phone] Gastroesophageal reflux disease without esophagitis Allergies Active Allergy Reactions Criticality Noted Date Comments Nitrofurantoin Rash 05/11/2015 Phenazopyridine Rash 05/11/2015 documented as of this encounter (statuses as of 03/30/2024) Medications losartan-hctz 100-25 mg per tab (HYZAAR) 100-25 MG per tabletIndication s:HTN, goal below 150/90 Take 1 Tab by mouth daily. 30 Tab 5 12/18/19 18 Active Diclofenac Sodium 1 % gelIndications:S train [...] 21 Active Azelastine HCl 0.1 % Nasal SolutionIndicati ons:Acute sinusitis, recurrence not specified, unspecified location SPRAY ONE SPRAY IN EACH NOSTRIL TWICE DAILY 30 mL 12 03/01/19 22 Active Cyanocobalamin 1000 MCG Oral Tablet (Cyanocobalamin) Take 1 Tablet by mouth in the morning. 07/17/19 22 Active Vitamin D (Cholecalciferol ) 25 MCG [...] chew. 50 Capsule 1 02/17/19 24 Active Additional Information Patient not taking.Reported on 03/14/2024 Rinvoq 15 MG Oral Tablet Extended Release 24 Hour (Upadacitinib ER) Take by mouth daily. Active Fluticasone Propionate 50 MCG/ACT Nasal Suspension (Flonase) PLACE TWO SPRAYS IN EACH NOSTRIL DAILY 48 g 1 05/06/19 24 Active Linzess 290 MCG Oral Capsule (linaCLOtide)Ind ications:Chronic constipation TAKE ONE CAPSULE BY MOUTH BEFORE BREAKFAST 90 Capsule 1 05/12/19 24 Active Montelukast Sodium 10 MG Oral Tablet (Singulair)Indic ations:Chronic maxillary sinusitis,Allerg y to environmental factors Take 1 Tablet by mouth in the morning. 90 Tablet 3 07/01/19 24 Active Sucralfate 1 GM Oral Tablet (Carafate)Indica [...] 24 Active Ondansetron HCl 8 MG Oral TabletIndication s:Nausea and vomiting, unspecified vomiting type Take 1 Tablet by mouth every 12 hours as needed for Nausea. 20 Tablet 11/05/19 24 Active Movantik 12.5 MG Oral Tablet (Naloxegol Oxalate) Take 1 Tablet by mouth in the morning. 11/24/19 24 Active Minoxidil 2.5 MG Oral Tablet (Loniten)Indicat ions:Hair loss Take 0.5 Tablets by mouth in the morning. 45 Tablet 11/30/19 24 Active Potassium Chloride ER 10 MEQ [...] Breath. 8.5 g 3 02/09/19 25 Active HYDROcodone-Acet aminophen 5-325 MG Oral TabletIndication s:Lumbar degenerative disc disease Take 1 Tablet by mouth every 12 hours as needed for Pain, Mild. 60 Tablet 03/03/19 25 Active Movantik 25 MG Oral Tablet Take 1 Tablet by mouth in the morning. 12/11/19 24 Active valACYclovir HCl 500 MG Oral Tablet (Valtrex) Take 1 Tablet by mouth 2 times a day as needed. 12/23/19 24 Active Trulance 3 MG Oral Tablet Take 1 Tablet by mouth in the morning. 12/09/19 24 Active oxyBUTYnin Chloride 5 MG Oral Tablet (Ditropan) Take 1 Tablet by mouth in the morning and 1 Tablet before bedtime. 01/06/20 24 Active hydroCHLOROthiaz debby 25 MG Oral Tablet (Hydrodiuril) Take 1 Tablet by mouth in the morning. 12/19/19 24 Active Topiramate 25 MG Oral Tablet (topAMAX)Indicat [...] DAY 90 Capsule 1 03/30/19 25 Active Esomeprazole Magnesium 40 MG Oral Capsule Delayed ReleaseIndicatio ns:Gastroesophag eal reflux disease without esophagitis TAKE ONE CAPSULE BY MOUTH IN THE MORNING, ONE HOUR BEFORE THE FIRST MEAL OF THE DAY 90 Capsule 1 10/08/19 24 2024 Discontinued documented as of this encounter (statuses as of 03/30/2024) Active Problems Problem Noted Date Diagnosed Date [...] as of this encounter (statuses as of 03/30/2024) Resolved Problems Problem Noted Date Diagnosed Date [...] as of this encounter (statuses as of 03/30/2024) Immunizations Name Administration Dates Next Due COVID-19 mRNA, LNP-s, No Pre serve, 2-Dose Series (Lumoid) 01/07/2021,03/19/2020,02/27/2020 Pneumococcal Conjugate Vacc, 13 Valent (Prevnar) [...] No 03/14/2024 Does the household have a [facility] source of income? (Household - for ages [...] encounter Miscellaneous Notes * Telephone Encounter - Wagner Lin, [facility] - 03/30/2024 11:26 AM EST Signed Prescriptions: Disp Refills Esomeprazole Magnesium 40 MG Oral Capsule *90 Cap*1 Sig: TAKE ONE CAPSULE BY MOUTH IN THE MORNING, ONE HOUR BEFORE THE FIRST MEAL OF THE DAYAuthorizing Provider: KELSEA LADD User: WAGNER LIN documented in this encounter Plan of Treatment Upcoming Encounters Date Type Department Care Team (Late st Contact Info) Description 04/14/2024 11:00 AM EST Office Visit Orthopaedics [address] [phone] Trav Ramirez MD [address] [place] [phone] 05/18/2024 10:30 AM EDT Imaging Radiology [address] [place] [phone] 07/25/2024 9:00 AM EDT Office Visit Family Medicine [address] [phone] Kelsea [place] MD [address] [place] [address] [place] [phone] Health Maintenance Due Date Last Done Comments Cologuard 1995 Fecal Occult Blood Test 1995 Sigmoidoscopy 1995 Zoster Vaccines (1 of 2) 02/23/2000 Adult Wellness Visit 02/23/2016 COVID-19 Vaccine ( season) 2023 01/07/2021, 03/19/2020, 02/27/2020 Mammogram 05/17/2024 05/18/2023, 08/2022, 02/14/2021, Additional history exists GFR 11/23/2024 11/24/2023, 08/2023, 10/17/2022, Additional history exists TSH 11/23/2024 11/24/2023, 06/09, 10/17/2022, Additional history exists Depression Screening 03/14/2025 03/14/2024 Albumin/Creatinine Ratio 10/17/2025 023, 01/15/2022, 02/18/2019, Additional history exists DTap/Tdap Vaccines (2 - Td or Tdap) 07/08/2027 07/07/2017 Lipid Panel 11/23/2028 11/24/2023, 09/2022, 07/16/2021, Additional history exists DXA Scan [...] as of this encounter Visit Diagnoses Diagnosis Gastroesophageal reflux disease without esophagitis Esophageal reflux Screening mammogram for breast cancer documented in this encounter Care Teams Surgical Attendant Relationship Specialty Start Date End Date Kelsea [place] MD [address] [place] [address] [place] [phone] PCP - General Family Medicine 12/25/20 documented as of this encounter
--- OUTSIDE RECORDS SUMMARY | 2024-04-12 04:44 | External Medical Summary | Summary of Care ---
Author Name Unknown Organization [facility] Address [address] [place] [address] Phone [phone] Care Team Providers Care Watch Repair Technician Name Role Phone Kelsea [place] MD Primary Care Prov ider Reason for Referral * Medication Prior Authorization - Closed Specialty Diagnoses / Procedures Referred By Contac t Referred To Contact Diagnoses Lumbar degenerative disc disease Kelsea [place] MD [address] [place] [address] [place] [phone] Phone: tel: fax: Referral ID Status Reason Start Date Expiration Date Visits Re quested Visits Authorized [id number] Closed 999 999 Reason for Visit * Reason Onset Date Comments Medication Refill 03/02/2024 Medication Pre-auth 03/03/2024 Encounter Details Date Type Department Care Team (Late st Contact Info) Description 03/02/2024 Refill Family Medicine [address] [place] [phone] Kelsea [place] MD [address] [place] [address] [place] [phone] Lumbar degenerative disc disease [...] AM EST Requested prior auth on center rx. Questions answered and sent to payer. * Telephone Encounter - Malathi Huang PHARM Tech - 03/03/2024 4:05 PM EST Patient calling to inform doctor that the patient's insurance will not pay for this medication without a completed prior authorization. Did confirm this information with the pharmacy. Pt's current insurance information is as follows: Patient name: Concepcion Sellers ID number: [id number] BIN number: [id number] PCN number: [id number] Group number: N/A Subscriber name: Concepcion Sellers Primary or Secondary Insurance:Primary Medication: Hydrocodone-Acetaminophen 5-325 mg Reason for Request: required Pharmacy and phone number: [facility] Rx plan and phone number: [place] [phone] Is this a new medication for the patient? No. How did the patient obtain the medication on the lastfill? The patient used a different insurance last time. They used [employer]. What alternative medications does the pharmacy have in stock?: n/a Malathi Martinez Department Sales Manager III [facility] ([facility]) 03/03/2024,4:05 PM * Telephone Encounter - Kelsea [place] MD - 03/03/2024 8:34 AM EST Signed Prescriptions: Disp Refills HYDROcodone-Acetaminophen 5-325 MG Oral Ta*60 Tab*0 Sig: Take 1 Tablet by mouth every 12 hours as needed for Pain, Mild. Authorizing Provider: KELSEA LADD * Telephone Encounter - Jeanine Wall [facility] - 03/02/2024 8:35 PM ESTPending Prescriptions: Disp Refills HYDROcodone-Acetaminophen 5-325 MG Oral Ta*60 Tab*0 Sig: Take 1 Tablet by mouth every 12 hours as needed for Pain, Mild. * Telephone Encounter - Jeanine Wall RP - 03/02/2024 8:34 PM EST I have reviewed the patients controlled substance dispensing history in the Prescription Drug Monitoring Program in compliance with the [facility] regulations before prescribing a controlled substance. PDMP checked on 03/02/2024. Pending Prescriptions: Disp Refills HYDROcodone-Acetaminophen 5-325 MG Oral T*60 Tab*0 Sig: Take 1 Tablet by mouth every 12 hours as needed for Pain, Mild. Last Visit: 12/08/2023 (in office), Visit date not found (telemedicine) Next Visit: 07/25/2024 Date medication was last filled: 02/01/24 Date medication is due for refill: 03/01/24 Pharmacy: [facility] Is this request for a controlled substance? [...] available upon request. Please approve if appropriate. Thanks, Jeanine Wall, PharmD Clinical Pharmacist [facility] ([facility]) [phone] 03/02/2024, 8:35 PM documented in this encounter Plan of Treatment Upcoming Encounters Date Type Department Care Team (Late st Contact Info) Description 05/18/2024 10:30 AM EDT Imaging Radiology [address], [address] [place] [phone] 07/25/2024 9:00 AM EDT Office Visit Family Medicine [address] [place] [phone] Kelsea [place] MD [address] [place] [address] [place] [phone] Health Maintenance Due Date Last Done Comments Cologuard 1995 Fecal Occult Blood Test 1995 Sigmoidoscopy 1995 Zoster Vaccines (1 of 2) 02/23/2000 Adult Wellness Visit 02/23/2016 Depression Screening 06/13/2021 06/13/2020 COVID-19 Vaccine ( season) 2023 01/07/2021, 03/19/2020, 02/27/2020 Mammogram 05/17/2024 05/18/2023, 040 08/2022, 02/14/2021, Additional history exists GFR 11/23/2024 11/24/2023, 06/0 08/2023, 10/17/2022, Additional history exists TSH 11/23/2024 11/24/2023, 1 07/2023, 10/17/2022, Additional history exists Albumin/Creatinine Ratio 10/17/2025 023, 01/15/2022, 02/18/2019, Additional history exists DTap/Tdap Vaccines (2 - Td or Tdap) 07/08/2027 07/07/2017 Lipid Panel 11/23/2028 11/24/2023, 09/0 09/2022, 07/16/2021, Additional history exists DXA Scan [...] cancer documented in this encounter Care Teams Watch Repair Technician Relationship Specialty Start Date End Date Kelsea L[place] MD [address] [place] [address] [place] [phone] PCP - General Family Medicine 12/25/20 documented as of this encounter
--- OUTSIDE RECORDS SUMMARY | 2024-04-12 04:44 | External Medical Summary | Summary of Care ---
Author Name Unknown Organization [facility] Address [address] [place] [address] Phone [phone] Care Team Providers Care Stone Planer Name Role Phone Tawana [place] MD Primary Care Prov ider Reason for Visit * Reason Comments eRx-Medication Refill Encounter Details Date Type Department Care Team (Late st Contact Info) Description 03/20/2024 Refill Family Medicine [address] [phone] Tawana [place] MD [address] [place] [address] [place] [phone] Migraine without aura and without status migrainosus, not intractable Allergies Active Allergy Reactions Criticality Noted Date Comments Nitrofurantoin Rash 05/11/2015 Phenazopyridine Rash 05/11/2015 documented as of this encounter (statuses as of 03/22/2024) Medications losartan-hctz 100-25 mg per tab (HYZAAR) [...] MORNING 90 Tablet 2 10/06/19 24 Active Esomeprazole Magnesium 40 MG [...] mouth in the morning. 12/19/19 24 Active Wegovy 0.25 MG/0.5ML Subcutaneous Solution Auto[facility]injector [facility])Indic ations:Obesity,F amily history of carotid artery stenosis,Pure hypercholesterol emia,HTN, goal below 150/90,Lumbar degenerative disc disease Inject 0.25 mg under the skin once a week. 2 mL 2 03/16/19 25 Active Topiramate 25 MG Oral Tablet (topAMAX)Indicat ions:Migraine without aura and without status migrainosus, not intractable TAKE ONE TABLET BY MOUTH IN THE MORNING AND AT BEDTIME 60 Tablet 5 03/21/19 25 Active Topiramate 25 MG Oral Tablet (topAMAX)Indicat ions:Migraine without aura and without status migrainosus, not intractable TAKE ONE TABLET BY MOUTH IN THE MORNING AND AT BEDTIME 60 Tablet 5 10/06/19 24 2024 Discontinued documented as of this encounter (statuses as of 03/22/2024) Active Problems Problem Noted Date Diagnosed Date [...] as of this encounter (statuses as of 03/22/2024) Resolved Problems Problem Noted Date Diagnosed Date [...] as of this encounter (statuses as of 03/22/2024) Immunizations Name Administration Dates Next Due COVID-19 [...] encounter Miscellaneous Notes * Telephone Encounter - Tawana [place] MD - 03/21/2024 4:58 PM EST Signed Prescriptions: Disp Refills Topiramate 25 MG Oral Tablet (topAMAX) 60 Tab*5 Sig: TAKE ONE TABLET BY MOUTH IN THE MORNING AND AT BEDTIME Authorizing Provider: TAWANA LADD * Telephone Encounter - Sola Clark CMA - 03/21/2024 8:29 AM ESTPending Prescriptions: Disp Refills Topiramate 25 MG Oral Tablet [Pharmacy Med*60 Tab*5 Sig: TAKE ONE TABLET BY MOUTH IN THE MORNING AND AT BEDTIME * Telephone Encounter - Sola Clark CMA - 03/21/2024 8:29 AM EST Pending Prescriptions: Disp Refills Topiramate 25 MG Oral Tablet (topAMAX) [P*60 Tab*5 Sig: TAKE ONE TABLET BY MOUTH IN THE MORNING AND AT BEDTIME Last Visit: 03/04/2024 (in office), Visit date not found (telemedicine) Next Visit: 07/25/2024 Last date the medication was ordered: 10/06/2023 Patient Active Problem List Diagnosis Lumbar degenerative disc disease History of pulmonary embolism History of DVT in adulthood Plantar fasciitis Hypothyroidism due to acquired atrophy of thyroid HTN, goal below 150/90 Migraine without aura and without status migrainosus, not intractable Rheumatoid arthritis with negative rheumatoid factor (HCC) Gastroesophageal reflux disease without esophagitis B12 deficiency Left thyroid nodule Lesion of vertebra Pure hypercholesterolemia Closed fracture of right upper extremity with delayed healing Multiple lipomas Wrist fracture, closed, right, with delayed healing, subsequent encounter Chest pain Controlled substance agreement signed Family history of carotid artery stenosis Nausea and/or vomiting Labs: Lab Results Component Value Date/Time CREATININE - [facility] 0.8 11/24/2023 01:38 PM CREATININE - [facility] 0.95 07/17/2023 12:00 AM CREATININE - [facility] 1.0 02/14/2020 10:55 AM CREATININE TRENT 154 02/06/2020 11:57 AM CREATININE TRENT - [facility] 166 01/15/2022 12:06 PM CREATININE, RANDOM URINE - [facility] 138 10/17/2022 12:49 PM CREATININE, RANDOM URINE - [facility] 169 02/18/2019 01:53 PM Lab Results Component Value Date/Time POTASSIUM - [facility] 3.5 11/24/2023 01:38 PM POTASSIUM - [facility] 3.4 (A) 07/17/2023 12:00 AM POTASSIUM - [facility] 3.8 02/14/2020 10:55 AM Lab Results Component Value Date/Time TSH - [facility] 1.03 11/24/2023 01:38 PM TSH - [facility] 0.27 02/14/2020 10:55 AM TSH - OUTSIDE LAB 0.270 09/11/2016 12:00 AM TSH W/REFLEX TO FT4-QUEST H 0.353 (A) 06/25/2023 12:00 AM Lab Results Component Value Date/Time LDL CHOLESTEROL (CALCULATED) - [facility] 81 11/24/2023 01:38 PM LDL CHOLESTEROL (CALCULATED) - [facility] 58 10/17/2022 10:57 AM LDL CHOLESTEROL (CALCULATED) - [facility] 54 02/18/2019 01:53 PM LDL CHOLESTEROL (CALCULATED) - [facility] 84 04/20/2018 01:42 PM LDL CHOLESTEROL (DIRECT MEASURE) - [facility] NOT APPLICABLE 02/18/2019 01:53 PM LDL CHOLESTEROL (DIRECT MEASURE) - [facility] NOT APPLICABLE 04/20/2018 01:42 PM LDL CHOLESTEROL (DIRECT MEASURE) - [facility] 83 03/26/2017 03:04 PM LDL CHOLESTEROL (DIRECT MEASURE) - [facility] 124 06/19/2016 04:37 PM Lab Results Component Value Date/Time ALT - [facility] 34 11/24/2023 01:38 PM ALT - [facility] 28 02/06/2020 11:49 AM Hemoglobin AIC Results: Lab Results Component Value Date/Time HEMOGLOBIN A1C - [facility] 5.5 11/24/2023 01:38 PM HEMOGLOBIN A1C - [facility] 5.5 10/17/2022 10:57 AM HEMOGLOBIN A1C - [facility] 6.0 (H) 07/16/2021 11:48 AM HEMOGLOBIN A1C - [facility] 5.6 02/06/2020 11:49 AM HEMOGLOBIN A1C - [facility] 5.3 02/18/2019 01:53 PM HEMOGLOBIN A1C - [facility] 5.7 (H) 10/18/2018 03:36 PM * Telephone Encounter - Osmel Posadas - 03/20/2024 1:36 PM ESTPending Prescriptions: Disp Refills Topiramate 25 MG Oral Tablet [Pharmacy Med*60 Tab*5 Sig: TAKE ONE TABLET BY MOUTH IN THE MORNING AND AT BEDTIME documented in this encounter Plan of Treatment Upcoming Encounters Date Type Department Care Team (Late st Contact Info) Description 03/24/2024 11:00 AM EST Office Visit Orthopaedics [address] [place] [phone] Trav [place] MD [address] [facility] [place] [phone] 05/18/2024 10:30 AM EDT Imaging Radiology [facility]st [facility] [place] [address] [place] [phone] 07/25/2024 9:00 AM EDT Office Visit Family Medicine [address] [place] [phone] Tawana [place] MD [address] [place] [address] [place] [address] Health Maintenance Due Date Last Done Comments [...] as of this encounter Visit Diagnoses Diagnosis Migraine without aura and without status migrainosus, not intractable Migraine without aura, without mention of intractable migraine without mention of status migrainosus Screening mammogram for breast cancer documented in this encounter Care Teams Stone Planer Relationship Specialty Start Date End Date Tawana [place] MD [address] [place] [address] [place] [phone] PCP - General Family Medicine 12/25/20 documented as of this encounter
--- OUTSIDE RECORDS SUMMARY | 2024-04-12 04:44 | External Medical Summary | Summary of Care ---
Author Name Unknown Organization [facility] Address [address] [place] [address] Phone [phone] Care Team Providers Care Pharmacology Associate Name Role Phone Tawana Mcgrath MD Primary Care Prov ider Reason for Visit * Reason Onset Date Comments Pre Cert/Prior Auth 03/14/2024 Ozempic Encounter Details Date Type Department Care Team (Late st Contact Info) Description 03/14/2024 Telephone Family Medicine [address] [phone] Tawana Mcgrath MD [address] [place] [address] [place] [phone] Pre Cert/Prior Auth (Ozempic) Allergies Active Allergy Reactions Criticality Noted Date Comments Nitrofurantoin Rash 05/11/2015 Phenazopyridine Rash 05/11/2015 documented as of this encounter (statuses as of 03/24/2024) Medications losartan-hctz 100-25 mg per tab (HYZAAR) [...] as of this encounter (statuses as of 03/24/2024) Active Problems Problem Noted Date Diagnosed Date [...] as of this encounter (statuses as of 03/24/2024) Resolved Problems Problem Noted Date Diagnosed Date [...] as of this encounter (statuses as of 03/24/2024) Immunizations Name Administration Dates Next Due COVID-19 [...] encounter Miscellaneous Notes * Telephone Encounter - Evelyn Anderson CPhT - 03/24/2024 3:56 PM EST Patients insurance would like to inform the office that ozempic, is denied because [facility] stated they will fax all information to [facility]. They will fax this info to the office, please review and resubmit if appropriate. Thank you, Evelyn Anderson CPhT Academic Advising Director II [facility] Services ([facility]) (Formerly Telepharmacy) 03/24/2024,3:56 PM * Telephone Encounter - Michele Bryant PHARM Tech - 03/23/2024 11:39 AM EST [facility] called in requesting fax number. Thank you, Michele Bryant Academic Advising Director I Clinical Pharmacy Services ([facility]) [address] [place] [address], [address] [place] [address] MC [phone] 03/23/2024, 11:39 AM * Telephone Encounter - China Aguiar RN - 03/14/2024 3:17 PM EST Prior auth needed for demetrio, on provider desk for a signature( she is out of town for 1 week) documented in this encounter Plan of Treatment Upcoming Encounters Date Type Department Care Team (Late st Contact Info) Description 03/29/2024 11:30 AM EST Office Visit Orthopaedics [facility] [address] [place] [phone] Trav Ramirez MD [address] [place] [phone] 05/18/2024 10:30 AM EDT Imaging Radiology [facility] 1st Floor, [place] [address] [place] [phone] 07/25/2024 9:00 AM EDT Office Visit Family Medicine [address] [place] [phone] Tawana Mcgrath MD [address] [place] [address] [place] [phone] Health Maintenance Due Date Last Done Comments [...] filedocumented as of this encounter Care Teams Pharmacology Associate Relationship Specialty Start Date End Date Tawana Mcgrath MD [address] [place] [address] [place] [phone] PCP - General Family Medicine 12/25/20 documented as of this encounter
--- OUTSIDE RECORDS SUMMARY | 2024-04-12 04:44 | External Medical Summary | Summary of Care ---
Author Name Unknown Organization [facility] Address [address] [place] [address] Phone [phone] Care Team Providers Care Groundhand Name Role Phone Kelsea Ladd MD Primary Care Prov ider Reason for Referral * Medication Prior Authorization - Closed Specialty Diagnoses / Procedures Referred By Contac t Referred To Contact Diagnoses Lumbar degenerative disc disease Kelsea Ladd MD [address] [place] [address] [place] [address] Phone: tel: fax: Referral ID Status Reason Start Date Expiration Date Visits Re quested Visits Authorized [id number] Closed 999 999 Reason for Visit * Reason Onset Date Comments Medication Refill 03/02/2024 Medication Pre-auth 03/03/2024 Encounter Details Date Type Department Care Team (Late st Contact Info) Description 03/02/2024 Refill Family Medicine [address] [place] [address] [phone] Kelsea Ladd MD [address] [place] [address] [place] [address] Lumbar degenerative disc disease Allergies Active Allergy Reactions Criticality Noted Date Comments Nitrofurantoin Rash 05/11/2015 Phenazopyridine Rash 05/11/2015 documented as of this encounter (statuses as of 03/07/2024) Medications losartan-hctz 100-25 mg per tab (HYZAAR) [...] Active Rizatriptan Benzoate 10 MG Oral Tablet (Maxalt)Indicati [...] Pain, Mild. 60 Tablet 03/03/19 25 Active Amoxicillin-Pot Clavulanate 875-125 MG Oral Tablet (Augmentin) Take 1 Tablet by mouth in the morning and 1 Tablet before bedtime. 14 Tablet 12/24/19 24 2024 Discontinued HYDROcodone-Acet aminophen 5-325 MG Oral TabletIndication s:Lumbar degenerative disc disease Take 1 Tablet by mouth every 12 hours as needed for Pain, Mild. 60 Tablet 02/01/20 24 2024 Discontinued(R efill) documented as of this encounter (statuses as of 03/07/2024) Active Problems Problem Noted Date Diagnosed Date [...] as of this encounter (statuses as of 03/07/2024) Resolved Problems Problem Noted Date Diagnosed Date [...] as of this encounter (statuses as of 03/07/2024) Immunizations Name Administration Dates Next Due COVID-19 [...] encounter Miscellaneous Notes * Telephone Encounter - Adriana Perez CPhT - 03/07/2024 11:45 AM EST Pt calling into check status of her PA for Rx HYDROCODONE-ACETAMIN 5-325 MG. Please advise at your earliest convenience. Thank you, Adriana Perez Clinician Oncology II [facility] ([facility]) 03/07/2024, 11:46 AM * Telephone Encounter - Sola Clark CMA - 03/04/2024 7:25 AM EST Requested prior auth on center rx. Questions answered and sent to payer. * Telephone Encounter - Malathi Huang, math and sciences department chair - 03/03/2024 4:05 PM EST Patient calling to inform doctor that the patient's insurance will not pay for this medication without a completed prior authorization. Did confirm this information with the pharmacy. Pt's current insurance information is as follows: Patient name: Concpecion Sellers ID number: [id number] BIN number: [id number] PCN number: [id number] Group number: N/A Subscriber name: Concepcion Sellers Primary or Secondary Insurance:Primary Medication: Hydrocodone-Acetaminophen 5-325 mg Reason for Request: required Pharmacy and phone number: [facility] [id number] [facility] Rx plan and phone number: [place]ell [phone] Is this a new medication for the patient? No. How did the patient obtain the medication on the lastfill? The patient used a different insurance last time. They used [employer]. What alternative medications does the pharmacy have in stock?: n/a Malathi Martinez Clinician Oncology III [facility] ([facility]) 03/03/2024,4:05 PM * Telephone Encounter - Kelsea Ladd MD - 03/03/2024 8:34 AM EST Signed Prescriptions: Disp Refills HYDROcodone-Acetaminophen 5-325 MG Oral Ta*60 Tab*0 Sig: Take 1 Tablet by mouth every 12 hours as needed for Pain, Mild. Authorizing Provider: KELSEA LADD * Telephone Encounter - Jeanine Wall [facility] - 03/02/2024 8:35 PM ESTPending Prescriptions: Disp Refills HYDROcodone-Acetaminophen 5-325 MG Oral Ta*60 Tab*0 Sig: Take 1 Tablet by mouth every 12 hours as needed for Pain, Mild. * Telephone Encounter - Jeanine Wall RPh - 03/02/2024 8:34 PM EST I have reviewed the patients controlled substance dispensing history in the Prescription Drug Monitoring Program in compliance with the [facility] regulations before prescribing a controlled substance. PDMP checked on 03/02/2024. Pending Prescriptions: Disp Refills HYDROcodone-Acetaminophen 5-325 MG Oral T*60 Tab*0 Sig: Take 1 Tablet by mouth every 12 hours as needed for Pain, Mild. Last Visit: 12/08/2023 (in office), Visit date not found (telemedicine) Next Visit: 07/25/2024 Date medication was last filled: 02/01/24 Date medication is due for refill: 03/01/24 Pharmacy: [facility] Is this request for a controlled [...] Clinical Pharmacist [facility] ([facility]) [phone] 03/02/2024, 8:35 PM documented in this encounter Plan of Treatment Upcoming Encounters Date Type Department Care Team (Late st Contact Info) Description 05/18/2024 10:30 AM EDT Imaging Radiology [address], [place] [address] [place] [phone] 07/25/2024 9:00 AM EDT Office Visit Family Medicine [address] [place] [address] [phone] Kelsea Ladd MD [address] [place] [address] [place] [address] Health Maintenance Due Date Last Done Comments [...] 11/23/2024 11/24/2023, 06/09, 10/17/2022, Additional history exists Albumin/Creatinine Ratio 10/17/2025 [...] cancer documented in this encounter Care Teams Groundhand Relationship Specialty Start Date End Date Kelsea Ladd MD [address] [place] [address] [place] [phone] PCP - General Family Medicine 12/25/20 documented as of this encounter
--- OUTSIDE RECORDS SUMMARY | 2024-04-12 04:44 | External Medical Summary | Summary of Care ---
Author Name Unknown Organization [facility] Address [address] [place] [address] Phone [phone] Care Team Providers Care Practice Consultant Name Role Phone Tawana Mcgrath MD Primary Care Prov ider Reason for Visit * Reason Onset Date Comments Pre Cert/Prior Auth 03/14/2024 Ozempic Encounter Details Date Type Department Care Team (Late st Contact Info) Description 03/14/2024 Telephone Family Medicine [address] [phone] Tawana Mcgrath MD [address] [place] [address] [place] [phone] Pre Cert/Prior Auth (Ozempic) Allergies Active Allergy Reactions Criticality Noted Date Comments Nitrofurantoin Rash 05/11/2015 Phenazopyridine Rash 05/11/2015 documented as of this encounter (statuses as of 03/15/2024) Medications losartan-hctz 100-25 mg per tab (HYZAAR) 100-25 MG per tabletIndications :HTN, goal below 150/90 Take 1 Tab by mouth daily. 30 Tab 5 8 Active Diclofenac Sodium 1 % gelIndications:St rain of lumbar region, initial encounter Place 2 g topically on the skin 4 times a day. 1 Tube 1 9 Active RESTASIS 0.05 % ophthalmic emulsion PLACE ONE DROP IN EACH EYE TWICE DAILY 30 Each 11 9 Active Propylene Glycol 0.6 % Ophthalmic Solution Instill 1 Drop into eye in the morning. 9 Active BD LUER-DARRYL SYRINGE 25G X 5/8" 3 ML MISC Inject 1 Syringe under the skin Every Month. As directed. 0 9 Active polyethylene glycol 3350 (MIRALAX) 255 gram powderIndications :Constipation, unspecified constipation type Take 17 g by mouth daily. Dissolve one heaping tablespoon in 8 ounces of water or juice. 1 Bottle 2 0 Active EUTHYROX 25 MCG Tablet Take 1 Tablet by mouth in the morning. 0 Active Premarin 0.625 MG/GM Vaginal Cream APPLY 0.5 GRAMS VAGINALLY TWICE A WEEK 42.5 g 4 1 Active Calcium + D 500-1000-40 MG-UNT-MCG Oral Tablet Chewable (Calcium-Vitamin D-Vitamin K)Indications:Wri st fracture, closed, right, with delayed healing, subsequent encounter Take 1 Tab by mouth daily. 90 Tab 3 1 Active Azelastine HCl 0.1 % Nasal SolutionIndicatio ns:Acute sinusitis, recurrence not specified, unspecified location SPRAY ONE SPRAY IN EACH NOSTRIL TWICE DAILY 30 mL 12 2 Active Cyanocobalamin 1000 MCG Oral Tablet (Cyanocobalamin) Take 1 Tablet by mouth in the morning. 2 Active Vitamin D (Cholecalciferol) 25 MCG (1000 UT) Oral Capsule Take by mouth . 2 Active Zoster Vac Recomb Adjuvanted 50 MCG/0.5ML Intramuscular Suspension Reconstituted (Shingrix)Indicat ions:Need for vaccination for zoster Inject 0.5 mL into a large muscle now and repeat dose in 60 to 180 days 1 Each 1 2 Active Additional Information Patient not taking.Reported on 03/14/2024 Rizatriptan Benzoate 10 MG Oral Tablet (Maxalt)Indicatio ns:Migraine without aura and without status migrainosus, not intractable Take 1 Tablet by mouth as needed for Migraine. at onset of headache, may repeat every 2 hours up to 2 times. Up to 3 tablets in 24 hours 20 Tablet 3 3 Active Hydrocortisone (Perianal) 2.5 % External Cream (Procto-Med HC)Indications:He morrhoid Administer into the rectum 2 times a day. 28 g 5 3 Active Atorvastatin Calcium 20 MG Oral Tablet (Lipitor)Indicati ons:Elevated LDL cholesterol level Take 1 Tablet by mouth in the morning. 90 Tablet 3 3 Active Benzonatate 100 MG Oral Capsule (Tessalon Perles) Take 1 Capsule by mouth 3 times a day as needed for Cough. Do not cut, crush, or chew. 50 Capsule 1 4 Active Additional Information Patient not taking.Reported on 03/14/2024 Rinvoq 15 MG Oral Tablet Extended Release 24 Hour (Upadacitinib ER) Take by mouth daily. Active Fluticasone Propionate 50 MCG/ACT Nasal Suspension (Flonase) PLACE TWO SPRAYS IN EACH NOSTRIL DAILY 48 g 1 4 Active Linzess 290 MCG Oral Capsule (linaCLOtide)Leora cations:Chronic constipation TAKE ONE CAPSULE BY MOUTH BEFORE BREAKFAST 90 Capsule 1 4 Active Montelukast Sodium 10 MG Oral Tablet (Singulair)Indica tions:Chronic maxillary sinusitis,Allergy to environmental factors Take 1 Tablet by mouth in the morning. 90 Tablet 3 4 Active Sucralfate 1 GM Oral Tablet (Carafate)Indicat ions:Gastroesopha geal reflux disease without esophagitis,Epiga stric pain Take 1 Tablet by mouth 4 times a day before meals and at bedtime. half an hour before meals and at bedtime 360 Tablet 3 4 Active Metoprolol Succinate ER 25 MG Oral Tablet Extended Release 24 Hour (toPROL XL)Indications:HT N, goal below 150/90 TAKE ONE TABLET BY MOUTH EVERY MORNING 90 Tablet 2 4 Active Topiramate 25 MG Oral Tablet (topAMAX)Indicati ons:Migraine without aura and without status migrainosus, not intractable TAKE ONE TABLET BY MOUTH IN THE MORNING AND AT BEDTIME 60 Tablet 5 4 Active Esomeprazole Magnesium 40 MG Oral Capsule Delayed ReleaseIndication s:Gastroesophagea l reflux disease without esophagitis TAKE ONE CAPSULE BY MOUTH IN THE MORNING, ONE HOUR BEFORE THE FIRST MEAL OF THE DAY 90 Capsule 1 4 Active Ondansetron HCl 8 MG Oral TabletIndications :Nausea and vomiting, unspecified vomiting type Take 1 Tablet by mouth every 12 hours as needed for Nausea. 20 Tablet 4 Active Movantik 12.5 MG Oral Tablet (Naloxegol Oxalate) Take 1 Tablet by mouth in the morning. 4 Active Minoxidil 2.5 MG Oral Tablet (Loniten)Indicati ons:Hair loss Take 0.5 Tablets by mouth in the morning. 45 Tablet 4 Active Potassium Chloride ER 10 MEQ Oral Capsule Extended ReleaseIndication s:Hypokalemia Take 1 Capsule by mouth in the morning. 90 Capsule 3 4 Active amLODIPine Besylate 10 MG Oral Tablet (Norvasc)Indicati ons:HTN, goal below 150/90 TAKE ONE TABLET BY MOUTH EVERY MORNING 90 Tablet 1 4 Active Cetirizine HCl 10 MG Oral Tablet (ZyrTEC) TAKE ONE TABLET BY MOUTH EVERY MORNING 30 Tablet 5 4 Active Ozempic (0.25 or 0.5 MG/DOSE) 2 MG/3ML Solution Pen-injector (Semaglutide(0.25 or 0.5MG/DOS))Indica tions:Prediabetes ,Obesity, Class I, BMI 30.0-34.9 (see actual BMI) Inject 0.5 mg under the skin once a week. 3 mL 5 4 Active Albuterol Sulfate HFA 108 (90 Base) MCG/ACT Inhalation Aerosol SolutionIndicatio ns:History of pulmonary embolism Inhale 2 Puffs by mouth every 6 hours as needed for Shortness of Breath. 8.5 g 3 5 Active HYDROcodone-Aceta minophen 5-325 MG Oral TabletIndications :Lumbar degenerative disc disease Take 1 Tablet by mouth every 12 hours as needed for Pain, Mild. 60 Tablet 5 Active Movantik 25 MG Oral Tablet Take 1 Tablet by mouth in the morning. 4 Active valACYclovir HCl 500 MG Oral Tablet (Valtrex) Take 1 Tablet by mouth 2 times a day as needed. 4 Active Trulance 3 MG Oral Tablet Take 1 Tablet by mouth in the morning. 4 Active oxyBUTYnin Chloride 5 MG Oral Tablet (Ditropan) Take 1 Tablet by mouth in the morning and 1 Tablet before bedtime. 4 Active hydroCHLOROthiazi de 25 MG Oral Tablet (Hydrodiuril) Take 1 Tablet by mouth in the morning. 4 Active documented as of this encounter (statuses as of 03/15/2024) Active Problems Problem Noted Date Diagnosed Date [...] as of this encounter (statuses as of 03/15/2024) Resolved Problems Problem Noted Date Diagnosed Date [...] as of this encounter (statuses as of 03/15/2024) Immunizations Name Administration Dates Next Due COVID-19 [...] ages 0-17 years) Not on file 03/14/2024 Comments No Sex and Gender Information Value Date Recorded Sex Assigned at Female 06/08/2018 5:03 PM EDT Legal Sex Female 7:07 AM EST Gender Identity Female 06/08/2018 5:03 PM EDT Sexual Orientation Straight 06/08/2018 5: 03 PM EDT documented as of this encounter Miscellaneous Notes * Telephone Encounter - China Aguiar RN - 03/14/2024 3:17 PM EST Prior auth needed for demetrio, on provider desk for a signature( she is out of town for 1 week) documented in this encounter Plan of Treatment Upcoming Encounters Date Type Department Care Team (Late st Contact Info) Description 03/24/2024 11:00 AM EST Office Visit Orthopaedics [address] [phone] Trav Ramirez MD [address] [place] [phone] 05/18/2024 10:30 AM EDT Imaging Radiology [address] [place] [phone] 07/25/2024 9:00 AM EDT Office Visit Family Medicine [address] [phone] Tawana Mcgrath MD [address] [place] [address] [place] [phone] Health Maintenance Due Date Last Done Comments [...] filedocumented as of this encounter Care Teams Practice Consultant Relationship Specialty Start Date End Date Tawana Mcgrath MD [address] [place] [address] [place] [phone] PCP - General Family Medicine 12/25/20 documented as of this encounter
--- OUTSIDE RECORDS SUMMARY | 2024-04-12 04:44 | External Medical Summary ---
Author Name Unknown Address Unknown Organization [id number]:[facility] [place] - [address] [facility] [id number] Laboratory Report Ordering Provider Test Date Status TYLER ENAMORADO 04/04/2024 11:38:12 Final Drugs that require complianc e testing:

Opioids:
Hydrocodone: Quantity 1 Date/Time of last Dose last night

Benzodiazepines
None

Cutoff Concentrations:
Drug Level
Codeine 40 ng/mL
Morphine 40 ng/mL
Hydrocodone 40 ng/mL
Hydromorphone 40 ng/mL
Dihydrocodeine 40 ng/mL
Oxycodone 50 ng/mL
Oxymorphone 50 ng/mL

This test was developed and its performance characteristics determined by [facility]. It has not been cleared or approved by the [place] Food and Drug Administration. Observation Date Value Abnormality Reference (Units ) Status METHODOLOGY 04/04/2024 11:38:12 LC-MS/MS Final Codeine 04/04/2024 11:38:12 Negative Negative Final Morphine, Urine confirmatory 04/04/2024 11:38:12 Negative Negative Final HYDROcodone cutoff [Mass/volume] in Urine for Confirmatory method 04/04/2024 11:38:12 498 Above high normal Negative (ng/mL) Final Hydromorphone, Urine confirmatory 04/04/2024 11:38:12 90 Above high normal Negative (ng/mL) Final Dihydrocodeine [Mass/volume] in Urine by Confirmatory method 04/04/2024 11:38:12 456 Above high normal Negative (ng/mL) Final oxyCODONE [Presence] in Urine by Screen method 04/04/2024 11:38:12 Negative Negative Final oxyMORphone cutoff [Mass/volume] in Urine for Confirmatory method 04/04/2024 11:38:12 Negative Negative Final Performing Location [facility] [place] - [facility] [place] [address] my [place]ondra. Ap [place] [id number]
--- OUTSIDE RECORDS SUMMARY | 2024-04-12 04:44 | External Medical Summary | Summary of Care ---
Author Name Unknown Organization [facility] Address [address] [place] [address] Phone [phone] Care Team Providers Care Business Process Coordinator Name Role Phone Kelsea Ladd MD Primary Care Prov ider Reason for Referral * Medication Prior Authorization - Closed Specialty Diagnoses / Procedures Referred By Contac t Referred To Contact Diagnoses Lumbar degenerative disc disease Kelsea Ladd MD [address] [place] [address] [place] [address] Phone: tel: fax: Referral ID Status Reason Start Date Expiration Date Visits Re quested Visits Authorized [id number] Closed 999 999 Reason for Visit * Reason Onset Date Comments Medication Refill 03/02/2024 Medication Pre-auth 03/03/2024 Encounter Details Date Type Department Care Team (Late st Contact Info) Description 03/02/2024 Refill Family Medicine [address] [place] [address] [phone] Kelsea Ladd MD [address] [place] [address] [place] [address] Lumbar degenerative disc disease [...] your earliest convenience. Thank you, Adriana Perez Whipped Topping Supervisor II [facility] ([facility]) 03/07/2024, 11:46 AM * Telephone Encounter - Sola Calrk CMA - 03/04/2024 7:25 AM EST Requested prior auth on center rx. Questions answered and sent to payer. * Telephone Encounter - Malathi Huang, return to service inspector - 03/03/2024 4:05 PM EST Patient calling to inform doctor that the patient's insurance will not pay for this medication without a completed prior authorization. Did confirm this information with the pharmacy. Pt's current insurance information is as follows: Patient name: Concepcion Sellers ID number: [id number] BIN number: [id number] PCN number: [id number] Group number: N/A Subscriber name: Concepcion Sellers Primary or Secondary Insurance:Primary Medication: Hydrocodone-Acetaminophen 5-325 mg Reason for Request: required Pharmacy and phone number: [facility] [address] [facility] Rx plan and phone number: Anabell [phone] Is this a new medication for the patient? No. How did the patient obtain the medication on the lastfill? The patient used a different insurance last time. They used [employer]. What alternative medications does the pharmacy have in stock?: n/a Malathi Martinez Whipped Topping Supervisor III [facility] ([facility]) 03/03/2024,4:05 PM * Telephone Encounter - Kelsea Ladd MD - 03/03/2024 8:34 AM EST Signed Prescriptions: Disp Refills HYDROcodone-Acetaminophen 5-325 MG Oral Ta*60 Tab*0 Sig: Take 1 Tablet by mouth every 12 hours as needed for Pain, Mild. Authorizing Provider: KELSEA LADD * Telephone Encounter - Jeanine Wall [facility] - 03/02/2024 8:35 PM ESTPending Prescriptions: Disp Refills HYDROcodone-Acetaminophen 5-325 MG Oral Ta*60 Tab*0 Sig: Take 1 Tablet by mouth every 12 hours as needed for Pain, Mild. * Telephone Encounter - Jeanine Wall RPh - 03/02/2024 8:34 PM EST I have reviewed the patients controlled substance dispensing history in the Prescription Drug Monitoring Program in compliance with the [facility] regulations before prescribing a controlled substance. PDMP checked on 03/02/2024. Pending Prescriptions: Disp Refills HYDROcodone-Acetaminophen 5-325 MG Oral T*60 Tab*0 Sig: Take 1 Tablet by mouth every 12 hours as needed for Pain, Mild. Last Visit: 12/08/2023 (in office), Visit date not found (telemedicine) Next Visit: 07/25/2024 Date medication was last filled: 02/01/24 Date medication is due for refill: 03/01/24 Pharmacy: [facility] Is this request for a controlled [...] Clinical Pharmacist [facility]ized [facility] Services ([facility]) [phone] 03/02/2024, 8:35 PM documented in this encounter Plan of Treatment Upcoming Encounters Date Type Department Care Team (Late st Contact Info) Description 05/18/2024 10:30 AM EDT Imaging Radiology [address], [place] [address] [place] [phone] 07/25/2024 9:00 AM EDT Office Visit Family Medicine [address] [place] [address] [phone] Kelsea Ladd MD [address] [place] [address] [place] [address] Health Maintenance Due Date [...] cancer documented in this encounter Care Teams Business Process Coordinator Relationship Specialty Start Date End Date Kelsea Ladd MD [address] [place] [address] [place] [address] PCP - General Family Medicine 12/25/20 documented as of this encounter
--- OUTSIDE RECORDS SUMMARY | 2024-04-12 04:44 | External Medical Summary | Summary of Care ---
Author Name Unknown Organization [facility] Address [address] [facility] [place] [address] Phone [phone] Care Team Providers Care Conceptor Name Role Phone Tawana Mcgrath MD Primary Care Prov ider Reason for Visit * Reason Comments Acute Encounter Details Date Type Department Care Team (Late st Contact Info) Description 03/04/2024 12:20 PM EST Office Visit Family Medicine [address] [place] [address] Blayne Owusu MD [address] [place] [address] [place] [phone] Chronic left shoulder pain*; Pain of left lower leg Allergies Active Allergy Reactions Criticality Noted Date [...] Tablet before bedtime. 14 Tablet 12/24/19 24 025 Discontinued documented as of this encounter (statuses [...] mRNA, LNP-s, No Pre serve, 2-Dose Series ([employer] 01/07/2021,03/19/2020,02/27/2020 Pneumococcal Conjugate Vacc, 13 Valent (Prevnar) [...] Sign Reading Time Taken Comments Blood Pressure 134/82 03/04/2024 12:29 PM EST Pulse 89 03/04/2024 12:29 PM EST Temperature 36.3 C (97.3 F) 03/04/2024 12:[address] Respiratory Rate - - Oxygen Saturation 95% 03/04/2024 12:29 PM EST Inhaled Oxygen Concentration - - Weight 75.8 kg (167 lb) 03/04/2024 12:29 PM EST Height - - Body Mass Index 30.89 11/24/2023 1:08 PM EDT documented in this encounter Progress Notes * Blayne Owusu MD - 03/04/2024 12:44 PM EST Subjective: HPI: Concepcion Sellers is a 74 year old female with hx of HTN, Hypothyroidism, Migraine, HLD, RA, hx of DVT/PE, DDD seen for L leg later pain for 2 weeks - denied any fever - denied any leg swelling - denied any SOB - denied trauma - hx of DVT Chronic L shoulder pain - hx of dislocation - going to PT Patient Active Problem List Diagnosis Lumbar degenerative [...] of carotid artery stenosis Nausea and/or vomiting Current Outpatient Medications Medication Sig Dispense Refill losartan-hctz 100-25 mg per tab (HYZAAR) 100-25 MG per tablet Take 1 Tab by mouth daily. 30 Tab 5 Diclofenac Sodium 1 % gel Place 2 g topically on the skin 4 times a day. 1 Tube 1 RESTASIS 0.05 % ophthalmic emulsion PLACE ONE DROP IN EACH EYE TWICE DAILY 30 Each 11 Propylene Glycol 0.6 % Ophthalmic Solution Instill 1 Drop into eye in the morning. BD LUER-DARRYL SYRINGE 25G X 5/8" 3 ML MISC Inject 1 Syringe under the skin Every Month. As directed. 0 polyethylene glycol 3350 (MIRALAX) 255 gram powder Take 17 g by mouth daily. Dissolve one heaping tablespoon in 8 ounces of water or juice. 1 Bottle 2 EUTHYROX 25 MCG Tablet Take 1 Tablet by mouth in the morning. Premarin 0.625 MG/GM Vaginal Cream APPLY 0.5 GRAMS VAGINALLY TWICE A WEEK 42.5 g 4 Calcium + D 500-1000-40 MG-UNT-MCG Oral Tablet Chewable (Calcium-Vitamin D- Vitamin K) Take 1 Tab bymouth daily. 90 Tab 3 Azelastine HCl 0.1 % Nasal Solution SPRAY ONE SPRAY IN EACH NOSTRIL TWICE DAILY 30 mL 12 Cyanocobalamin 1000 MCG Oral Tablet (Cyanocobalamin) Take 1 Tablet by mouth in the morning. Vitamin D (Cholecalciferol) 25 MCG (1000 UT) Oral Capsule Take by mouth . Rizatriptan Benzoate 10 MG Oral Tablet (Maxalt) Take 1 Tablet by mouth as needed for Migraine. at onset of headache, may repeat every 2 hours up to 2 times. Up to 3 tablets in 24 hours 20 Tablet 3 Hydrocortisone (Perianal) 2.5 % External Cream (Procto-Med HC) Administer into the rectum 2 times aday. 28 g 5 Atorvastatin Calcium 20 MG Oral Tablet (Lipitor) Take 1 Tablet by mouth in the morning. 90 Tablet 3 Benzonatate 100 MG Oral Capsule (Tessalon Perles) Take 1 Capsule by mouth 3 times a day as needed for Cough. Do not cut, crush, or chew. 50 Capsule 1 Rinvoq 15 MG Oral Tablet Extended Release 24 Hour (Upadacitinib ER) Take by mouth daily. Fluticasone Propionate 50 MCG/ACT Nasal Suspension (Flonase) PLACE TWO SPRAYS IN EACH NOSTRIL DAILY48 g 1 Linzess 290 MCG Oral Capsule (linaCLOtide) TAKE ONE CAPSULE BY MOUTH BEFORE BREAKFAST 90 Capsule 1 Montelukast Sodium 10 MG Oral Tablet (Singulair) Take 1 Tablet by mouth in the morning. 90 Tablet 3 Sucralfate 1 GM Oral Tablet (Carafate) Take 1 Tablet by mouth 4 times a day before meals and at bedtime. half an hour before meals and at bedtime 360 Tablet 3 Metoprolol Succinate ER 25 MG Oral Tablet Extended Release 24 Hour (toPROL XL) TAKE ONE TABLET BY MOUTH EVERY MORNING 90 Tablet 2 Topiramate 25 MG Oral Tablet (topAMAX) TAKE ONE TABLET BY MOUTH IN THE MORNING AND AT BEDTIME 60 Tablet 5 Esomeprazole Magnesium 40 MG Oral Capsule Delayed Release TAKE ONE CAPSULE BY MOUTH IN THE MORNING,ONE HOUR BEFORE THE FIRST MEAL OF THE DAY 90 Capsule 1 Ondansetron HCl 8 MG Oral Tablet Take 1 Tablet by mouth every 12 hours as needed for Nausea. 20 Tablet 0 Movantik 12.5 MG Oral Tablet (Naloxegol Oxalate) Take 1 Tablet by mouth in the morning. Minoxidil 2.5 MG Oral Tablet (Loniten) Take 0.5 Tablets by mouth in the morning. 45 Tablet 0 Potassium Chloride ER 10 MEQ Oral Capsule Extended Release Take 1 Capsule by mouth in the morning. 90 Capsule 3 amLODIPine Besylate 10 MG Oral Tablet (Norvasc) TAKE ONE TABLET BY MOUTH EVERY MORNING 90 Tablet 1 Cetirizine HCl 10 MG Oral Tablet (ZyrTEC) TAKE ONE TABLET BY MOUTH EVERY MORNING 30 Tablet 5 Ozempic (0.25 or 0.5 MG/DOSE) 2 MG/3ML Solution Pen-injector (Semaglutide(0.25 or 0.5MG/DOS)) Inject 0.5 mg under the skin once a week. 3 mL 5 Albuterol Sulfate HFA 108 (90 Base) MCG/ACT Inhalation Aerosol Solution Inhale 2 Puffs by mouth every 6 hours as needed for Shortness of Breath. 8.5 g 3 HYDROcodone-Acetaminophen 5-325 MG Oral Tablet Take 1 Tablet by mouth every 12 hours as needed for Pain, Mild. 60 Tablet 0 Zoster Vac Recomb Adjuvanted 50 MCG/0.5ML Intramuscular Suspension Reconstituted (Shingrix) Inject 0.5 mL into a large muscle now and repeat dose in 60 to 180 days 1 Each 1 No current facility-administered medications for this visit. Past Medical History: Diagnosis Date Hypothyroidism due to acquired atrophy of thyroid 05/11/2015 Intestinal adhesions with obstruction (HCC) 05/11/2015 Left leg DVT (HCC) 05/11/2015 Lumbar degenerative disc disease 05/11/2015 Need for hepatitis C screening test 11/12/15 negative Peripheral neuropathy 05/11/2015 Plantar fasciitis 05/11/2015 Pulmonary embolism and infarction (HCC) 05/11/2015 Past Surgical History: Procedure Laterality Date ACROMIO/STERNOCLAVICULAR JOINT SURG EGD, FLEXIBLE, DIAGNOSTIC 07/27/2019 gastric irritation on bx / ESOPHAGOGASTRODUODENOSCOPY (EGD), FLEXIBLE, TRANSORAL, DIAGNOSTIC performed by Tobi Hernandez MD at ENDOSCOPY [facility] EGD, FLEXIBLE,W/ENDOSCOPIC US 07/27/2019 CBD stone, fatty liver, fatty pancreas / ESOPHAGOGASTRODUODENOSCOPY (EGD), FLEXIBLE, TRANSORAL, ULTRASONIC EXAM performed by Tobi Hernandez MD at ENDOSCOPY [facility] EGD, W/ENDOSCOPIC US 04/24/2021 fatty liver / ESOPHAGOGASTRODUODENOSCOPY (EGD), FLEXIBLE, TRANSORAL, ENDOSCOPIC ULTRASOUND performed by Tobi Hernandez MD at ENDOSCOPY [facility] ERCP, DIAGNOSTIC, SPECIMEN COLLECTION 07/27/2019 Biliary papillary stenosis / ENDOSCOPIC RETROGRADE CHOLANGIOPANCREATOGRAPHY (ERCP) DIAGNOSTIC performed by Tobi Hernandez MD at ENDOSCOPY [facility] LUMBAR DISC ARTHROPLAST,REMV,ADDL INTERSPCE MAMMOGRAM BREAST NEEDLE BIOPSY CORE LEFT Left 08/20/2018 Benign MRI BRAIN W WO CONTRAST 11/14/2021 moderately advanced chronic small vessel ischemia MUSCLE/TENDON XFER, UPPER ARM/ELBOW Right partially torn muscle repaired PUNCTURE DRAINAGE BREAST CYST Left 2003 benign REDUCTION OF BOWEL OBSTRUCTION x 5 REMOVE CATARACT, INSERT LENS PROSTH 06-12-16;right 06-26-16 left REPAIR FINGER DEFORMITY TOTAL ABD HYSTERECTOMY W/WO REMOVAL OF TUBE(S) age 36 Review of patient's allergies indicates: Allergen Reactions Macrobid [Nitrofurantoin] Rash Pyridium [Phenazopyridine] Rash Family History Problem Relation Name Age of Onset Diabetes Father Stroke Father Liver cancer Mother Heart Disorder Sister Breast Cancer Aunt (Maternal) Social History Tobacco Use Smoking status: Former Smokeless tobacco: Never Tobacco comments: smoked a couple times as teenager Substance Use Topics Alcohol use: Never Vaping/E-Cigarette Use Vaping/E-Cigarette Use Never User Vaping/E-Cigarette Substances Vaping/E-Cigarette Devices ROS: -Per HPI OBJECTIVE: BP 134/82 | Pulse 89 | Temp 97.3 F (36.3 C) | Wt 167 lb (75.8 kg) | SpO2 95% | BMI 30.89 kg/m| BSA 1.82 m PHYSICAL EXAM: Vitals are reviewed General:. NAD, well developed HEENT:. Normal Conjunctiva, EOMI L shoulder: limited ROM due to pain L leg: no swelling but dry skin, no redness, mild TTP of the mid lateral leg area TTP Psych:. AAOx3, normal affect ASSESSMENT/PLAN: Not suspecting DVT but will get doppler - likely MSK -- recommended Ice TID and topical pain reliever Due to chronic nature of the shoulder pain will get xrya Chronic left shoulder pain (Primary) - XR SHOULDER, 2 OR MORE VIEWS Pain of left lower leg - VASC DUPLEX VENOUS LE UNILAT Blayne Owusu MD [place] [phone] documented in this encounter Nursing Notes * Sola Clark, EXPORT COORDINATOR - 03/04/2024 12:27 PM EST She is here today for a bruise on her leg. She has a hx of blood clots and wants it checked. documented in this encounter Plan of Treatment Upcoming Encounters Date Type Department Care Team (Late st Contact Info) Description 03/04/2024 2:00 PM EST Imaging Radiology [address] [place] [phone] 05/18/2024 10:30 AM EDT Imaging Radiology [facility] [address] [place] [phone] 07/25/2024 9:00 AM EDT Office Visit Family Medicine [address] [place] [phone] Tawana Mcgrath MD [address] [place] [address] [place] [phone] Pending Results Name Type Priority Associated Diagnoses Date /Time VASC DUPLEX VENOUS LE UNILAT Medical Imaging Routine Pain of left lower leg 03/04/2024 1:00 PM EST Scheduled Orders Name Type Priority Associated Diagnoses Orde r Schedule XR SHOULDER, 2 OR MORE VIEWS Medical Imaging Routine Chronic left shoulder pain Ordered: 03/04/2024 Health Maintenance Due Date Last Done Comments [...] as of this encounter Visit Diagnoses Diagnosis Chronic left shoulder pain- Primary Pain in joint, shoulder region Pain of left lower leg Pain in limb Screening mammogram for breast cancer documented in this encounter Care Teams Conceptor Relationship Specialty Start Date End Date Tawana Mcgrath MD [address] [place] [address] [place] [phone] PCP - General Family Medicine 12/25/20 documented as of this encounter
--- OUTSIDE RECORDS SUMMARY | 2024-04-12 04:45 | External Medical Summary | Summary of Care ---
Author Name Unknown Organization [facility] Address [address] [facility] [place] [address] Phone [phone] Care Team Providers Care Entrepreneurship Program Director Name Role Phone Tawana Mcgrath MD Primary Care Prov ider Encounter Details Date Type Department Care Team (Late st Contact Info) Description 02/29/2024 Population Health External Data Unspecified Department Allergies Active Allergy Reactions Criticality Noted Date Comments Nitrofurantoin Rash 05/11/2015 Phenazopyridine Rash 05/11/2015 documented as of this encounter (statuses as of 02/29/2024) Medications losartan-hctz 100-25 mg per tab (HYZAAR) [...] 180 days 1 Each 1 2 Active Rizatriptan Benzoate 10 MG Oral Tablet [...] or chew. 50 Capsule 1 4 Active Rinvoq 15 MG Oral Tablet Extended [...] in the morning. 45 Tablet 4 Active Amoxicillin-Pot Clavulanate 875-125 MG Oral Tablet (Augmentin) Take 1 Tablet by mouth in the morning and 1 Tablet before bedtime. 14 Tablet 4 Active Potassium Chloride ER 10 [...] EVERY MORNING 30 Tablet 5 4 Active HYDROcodone-Aceta minophen 5-325 MG Oral TabletIndications :Lumbar degenerative disc disease Take 1 Tablet by mouth every 12 hours as needed for Pain, Mild. 60 Tablet 4 Active Ozempic (0.25 or 0.5 MG/DOSE) [...] of Breath. 8.5 g 3 5 Active documented as of this encounter (statuses as of 02/29/2024) Active Problems Problem Noted Date Diagnosed Date [...] as of this encounter (statuses as of 02/29/2024) Resolved Problems Problem Noted Date Diagnosed Date [...] as of this encounter (statuses as of 02/29/2024) Immunizations Name Administration Dates Next Due COVID-19 mRNA, LNP-s, No Pre serve, 2-Dose Series ([employer]) 01/07/2021,03/19/2020,02/27/2020 Pneumococcal Conjugate Vacc, 13 Valent (Prevnar) [...] Description 05/18/2024 10:30 AM EDT Imaging Radiology [address], [place] [address] [place] [phone] 07/25/2024 9:00 AM EDT Office Visit Family Medicine [address] [place] [phone] Tawana Mcgrath MD [address] [place] [address] [place] [phone] Health Maintenance Due Date Last Done Comments Cologuard 1995 Fecal Occult Blood Test 1995 Sigmoidoscopy 1995 Zoster Vaccines (1 of 2) 02/23/2000 Adult Wellness Visit 02/23/2016 Depression Screening 06/13/2021 06/13/2020 COVID-19 Vaccine ( season) 2023 01/07/2021, 03/19/2020, 02/27/2020 Mammogram 05/17/2024 05/18/2023, 0 08/2022, 02/14/2021, Additional history exists DXA Scan 07/08/2024 07/08/2017 GFR 11/23/2024 11/24/2023, 08/2023, 10/17/2022, Additional history exists TSH 11/23/2024 11/24/2023, 06/09, 10/17/2022, Additional history exists Albumin/Creatinine Ratio 10/17/2025 023, 01/15/2022, 02/18/2019, Additional history exists DTap/Tdap Vaccines (2 - Td or Tdap) 07/08/2027 07/07/2017 Lipid Panel 11/23/2028 11/24/2023, 090 09/2022, 07/16/2021, Additional history exists Colonoscopy 07/13/2033 [...] filedocumented as of this encounter Care Teams Entrepreneurship Program Director Relationship Specialty Start Date End Date Tawana Mcgrath MD [address] [place] [address] [place] [phone] PCP - General Family Medicine 12/25/20 documented as of this encounter
--- OUTSIDE RECORDS SUMMARY | 2024-04-12 04:45 | External Medical Summary | Summary of Care ---
Author Name Unknown Organization [facility] Address [address] [facility] [place] [address] Phone [phone] Care Team Providers Care Secretary To The Vice President Name Role Phone Kelsea Ladd MD Primary Care Prov ider Reason for Visit * Reason Comments eRx-Medication Refill Encounter Details Date Type Department Care Team (Late st Contact Info) Description 02/06/2024 Refill Family Medicine [address] [phone] Kelsea Ladd MD [address] [place] [address] [place] [address] Prediabetes; Obesity, Class I, BMI 30.0-34.9 (see actual BMI) Allergies Active Allergy Reactions Criticality Noted Date Comments Nitrofurantoin Rash 05/11/2015 Phenazopyridine Rash 05/11/2015 documented as of this encounter (statuses as of 02/08/2024) Medications losartan-hctz 100-25 mg per tab (HYZAAR) [...] DAY 90 Capsule 1 10/08/19 24 Active Albuterol Sulfate HFA 108 (90 Base) MCG/ACT Inhalation Aerosol SolutionIndicati ons:History of pulmonary embolism Inhale 2 Puffs by mouth every 6 hours as needed for Shortness of Breath. 8.5 g 3 11/01/19 24 Active Ondansetron HCl 8 MG Oral [...] MORNING 30 Tablet 5 01/17/20 24 Active HYDROcodone-Acet aminophen 5-325 MG Oral TabletIndication s:Lumbar degenerative disc disease Take 1 Tablet by mouth every 12 hours as needed for Pain, Mild. 60 Tablet 02/01/20 24 Active Ozempic (0.25 or 0.5 MG/DOSE) 2 MG/3ML Solution Pen-injector (Semaglutide(0.2 5 or 0.5MG/DOS))Indic ations:Prediabet es,Obesity, Class I, BMI 30.0-34.9 (see actual BMI) Inject 0.5 mg under the skin once a week. 3 mL 5 02/08/20 24 Active Ozempic (0.25 or 0.5 MG/DOSE) 2 MG/3ML Solution Pen-injector (Semaglutide(0.2 5 or 0.5MG/DOS))Indic ations:Prediabet es,Obesity, Class I, BMI 30.0-34.9 (see actual BMI) Inject 0.5 mg under the skin once a week. 3 mL 1 12/21/19 24 024 Discontinued documented as of this encounter (statuses as of 02/08/2024) Active Problems Problem Noted Date Diagnosed Date [...] as of this encounter (statuses as of 02/08/2024) Resolved Problems Problem Noted Date Diagnosed Date [...] as of this encounter (statuses as of 02/08/2024) Immunizations Name Administration Dates Next Due COVID-19 [...] Miscellaneous Notes * Telephone Encounter - Wagner Lin [facility] - 02/08/2024 2:11 PM ESTSigned Prescriptions: Disp Refills Ozempic (0.25 or 0.5 MG/DOSE) 2 MG/3ML Heather*3 mL 5 Sig: Inject 0.5 mg under the skin once a week.Authorizing Provider: KELSEA LADD User: WAGNER LIN documented in this encounter Plan of Treatment Upcoming Encounters Date Type Department Care Team (Late st Contact Info) Description 05/18/2024 10:30 AM EDT Imaging Radiology [address] [facility] [place] [address] 07/25/2024 9:00 AM EDT Office Visit Family Medicine [address] [place] [address] [phone] Kelsea Ladd MD [address] [place] [address] [place] [phone] Health Maintenance Due Date Last Done Comments [...] as of this encounter Visit Diagnoses Diagnosis Prediabetes Other abnormal glucose Obesity, Class I, BMI 30.0-34.9 (see actual BMI) Obesity, unspecified documented in this encounter Care Teams Secretary To The Vice President Relationship Specialty Start Date End Date Kelsea Ladd MD [address] [place] [address] [place] [phone] PCP - General Family Medicine 12/25/20 documented as of this encounter
--- OUTSIDE RECORDS SUMMARY | 2024-04-12 04:45 | External Medical Summary | Summary of Care ---
Author Name Unknown Organization [facility] Address [address] [facility] [place] [address] Phone [phone] Care Team Providers Care Editor At Large Name Role Phone Tawana Mcgrath MD Primary Care Prov ider Encounter Details Date Type Department Care Team (Late st Contact Info) Description 02/10/2024 Population Health External Data Unspecified Department Allergies Active Allergy Reactions Criticality Noted Date Comments Nitrofurantoin Rash 05/11/2015 Phenazopyridine Rash 05/11/2015 documented as of this encounter (statuses as of 02/10/2024) Medications losartan-hctz 100-25 mg per tab (HYZAAR) [...] THE DAY 90 Capsule 1 4 Active Albuterol Sulfate HFA 108 (90 Base) MCG/ACT Inhalation Aerosol SolutionIndicatio ns:History of pulmonary embolism Inhale 2 Puffs by mouth every 6 hours as needed for Shortness of Breath. 8.5 g 3 4 Active Ondansetron HCl 8 MG Oral [...] a week. 3 mL 5 4 Active documented as of this encounter (statuses as of 02/10/2024) Active Problems Problem Noted Date Diagnosed Date [...] as of this encounter (statuses as of 02/10/2024) Resolved Problems Problem Noted Date Diagnosed Date [...] as of this encounter (statuses as of 02/10/2024) Immunizations Name Administration Dates Next Due COVID-19 mRNA, LNP-s, No Pre serve, 2-Dose Series ([employer]) 01/07/2021,03/19/2020,02/27/2020 Pneumococcal Conjugate Vacc, 13 Valent (Prevnar) [...] Description 05/18/2024 10:30 AM EDT Imaging Radiology [address], [place] [facility] [place] [address] 07/25/2024 9:00 AM EDT Office Visit Family Medicine [address] [place] [phone] Tawana Mcgrath MD [address] [place] [address] [place] [phone] Health Maintenance Due Date Last Done Comments [...] filedocumented as of this encounter Care Teams Editor At Large Relationship Specialty Start Date End Date Tawana Mcgrath MD [address] [place] [address] [place] [phone] PCP - General Family Medicine 12/25/20 documented as of this encounter
--- OUTSIDE RECORDS SUMMARY | 2024-04-12 04:45 | External Medical Summary | Summary of Care ---
Author Name Unknown Organization [facility] [address] Phone [phone] Care Team Providers Care Upsetter Helper Name Role Phone Kelsea Ladd MD Primary Care Prov ider Reason for Visit * Reason Onset Date Comments Medication Refill 03/02/2024 Encounter Details Date Type Department Care Team (Late st Contact Info) Description 03/02/2024 Refill Family Medicine [address] [phone] Kelsea Ladd MD [address] [place] [address] [place] [address] Lumbar degenerative disc disease Allergies Active Allergy Reactions Criticality Noted Date Comments Nitrofurantoin Rash 05/11/2015 Phenazopyridine Rash 05/11/2015 documented as of this encounter (statuses as of 03/03/2024) Medications losartan-hctz 100-25 mg per tab (HYZAAR) [...] as of this encounter (statuses as of 03/03/2024) Active Problems Problem Noted Date Diagnosed Date Nausea and/or vomiting 01/14/2023 Family history of carotid artery stenosis 03/07/ 2023 Controlled substance agreement signed 10/04/2021 Chest pain [...] as of this encounter (statuses as of 03/03/2024) Resolved Problems Problem Noted Date Diagnosed Date [...] as of this encounter (statuses as of 03/03/2024) Immunizations Name Administration Dates Next Due COVID-19 [...] encounter Miscellaneous Notes * Telephone Encounter - Kelsea Ladd MD [...] Drug Monitoring Program in compliance with the [facility] regulations before prescribing a controlled substance. PDMP checked on 03/02/2024. Pending Prescriptions: Disp Refills HYDROcodone-Acetaminophen 5-325 MG Oral T*60 Tab*0 Sig: Take 1 Tablet by mouth every 12 hours as needed for Pain, Mild. Last Visit: 12/08/2023 (in office), Visit date not found (telemedicine) Next Visit: 07/25/2024 Date medication was last filled: 02/01/24 Date medication is due for refill: 03/01/24 Pharmacy: [facility] [place] Is this request for a controlled substance? [...] Clinical Pharmacist [facility] ([facility]) [phone] 03/02/2024, 8:35 PM documented in this encounter Plan of Treatment Upcoming Encounters Date Type Department Care Team (Late st Contact Info) Description 05/18/2024 10:30 AM EDT Imaging Radiology [address], [place] [address] [place] [phone] 07/25/2024 9:00 AM EDT Office Visit Family Medicine [address] [place] [phone] Kelsea Ladd MD [address] [place] [address] [place] [phone] Health Maintenance Due Date Last Done Comments Cologuard 1995 Fecal Occult Blood Test 1995 Sigmoidoscopy 1995 Zoster Vaccines (1 of 2) 02/23/2000 Adult Wellness Visit 02/23/2016 Depression Screening 06/13/2021 06/13/2020 COVID-19 Vaccine ( season) 2023 01/07/2021, 03/19/2020, 02/27/2020 Mammogram 05/17/2024 05/18/2023, 040 08/2022, 02/14/2021, Additional history exists DXA Scan 07/08/2024 07/08/2017 GFR 11/23/2024 11/24/2023, 060 08/2023, 10/17/2022, Additional [...] cancer documented in this encounter Care Teams Upsetter Helper Relationship Specialty Start Date End Date Kelsea Ladd MD [address] [place] [address] [place] [phone] PCP - General Family Medicine 12/25/20 documented as of this encounter
--- OUTSIDE RECORDS SUMMARY | 2024-04-12 04:45 | External Medical Summary | Summary of Care ---
Author Name Unknown Organization [facility] Address [address] [place] [address] Phone [phone] Care Team Providers Care Hot Die Picker Name Role Phone Kelsea Ladd MD Primary Care Prov ider Reason for Visit * Reason Comments eRx-Medication Refill Encounter Details Date Type Department Care Team (Late st Contact Info) Description 02/08/2024 Refill General Internal Medicine [facility] [address] Kelsea Ladd MD [address] [place] [address] [place] [phone] History of pulmonary embolism Allergies Active Allergy Reactions Criticality Noted Date [...] Breath. 8.5 g 3 02/09/19 25 Active Albuterol Sulfate HFA 108 (90 Base) MCG/ACT Inhalation Aerosol SolutionIndicati ons:History of pulmonary embolism Inhale 2 Puffs by mouth every 6 hours as needed for Shortness of Breath. 8.5 g 3 11/01/19 24 025 Discontinued documented as of this [...] encounter Miscellaneous Notes * Telephone Encounter - Jeanine Santos RPh - 02/10/2024 3:58 PM ESTSigned Prescriptions: Disp Refills Albuterol Sulfate HFA 108 (90 Base) MCG/AC*8.5 g 3 Sig: Inhale 2Puffs by mouth every 6 hours as needed for Shortness of Breath.Authorizing Provider: KELSEA LADD User: JEANINE SANTOS documented in this encounter Plan of Treatment Upcoming Encounters Date Type Department Care Team (Late st Contact Info) Description 05/18/2024 10:30 AM EDT Imaging Radiology [address] [place] [address] 07/25/2024 9:00 AM EDT Office Visit Family Medicine [address] [phone] Kelsea Ladd MD [address] [place] [address] [place] [phone] Health Maintenance Due Date Last Done Comments Cologuard 1995 Fecal Occult Blood Test 1995 Sigmoidoscopy 1995 Zoster Vaccines (1 of 2) 02/23/2000 Adult Wellness Visit 02/23/2016 Depression Screening 06/13/2021 06/13/2020 COVID-19 Vaccine ( season) 2023 01/07/2021, 03/19/2020, 02/27/2020 Mammogram 05/17/2024 05/18/2023, 0 08/2022, 02/14/2021, Additional history exists DXA Scan 07/08/2024 07/08/2017 GFR 11/23/2024 11/24/2023, 0 08/2023, 10/17/2022, Additional history exists TSH 11/23/2024 11/24/2023, 06/09, 10/17/2022, Additional history exists Albumin/Creatinine Ratio 10/17/2025 023, 01/15/2022, 02/18/2019, Additional history exists DTap/Tdap Vaccines (2 - Td or Tdap) 07/08/2027 07/07/2017 Lipid Panel 11/23/2028 11/24/2023, 0 09/2022, 07/16/2021, Additional history exists Colonoscopy 07/13/2033 [...] as of this encounter Visit Diagnoses Diagnosis History of pulmonary embolism Personal history of pulmonary embolism documented in this encounter Care Teams Hot Die Picker Relationship Specialty Start Date End Date Kelsea Ladd MD [address] [place] [address] [place] [phone] PCP - General Family Medicine 12/25/20 documented as of this encounter
--- OUTSIDE RECORDS SUMMARY | 2024-04-12 04:45 | External Medical Summary | Summary of Care ---
Author Name Unknown Organization [facility] Address [address] [facility] [address] Phone [phone] Care Team Providers Care Vice President Sales Name Role Phone Kelsea Ladd MD Primary Care Prov ider Reason for Visit * Reason Onset Date Comments Medication Refill 03/02/2024 Medication Pre-auth 03/03/2024 Encounter Details Date Type Department Care Team (Late st Contact Info) Description 03/02/2024 Refill Family Medicine [address] [phone] Kelsea Ladd MD [address] [place] [address] [place] [address] Lumbar degenerative disc disease [...] mRNA, LNP-s, No Pre serve, 2-Dose Series ([employer]) 01/07/2021,03/19/2020,02/27/2020 Pneumococcal Conjugate Vacc, 13 Valent (Prevnar) [...] encounter Miscellaneous Notes * Telephone Encounter - Malathi Huang PHARM Tech - 03/03/2024 4:05 PM EST Patient calling to inform doctor that the patient's insurance will not pay for this medication without a completed prior authorization. Did confirm this information with the pharmacy. Pt's current insurance information is as follows: Patient name: Concepcion Sellers ID number: [id number] BIN number: [id number] PCN number: [id number] Group number: N/A Subscriber name: Concepcion Sellers Primary or Secondary Insurance:Primary Medication: Hydrocodone-Acetaminophen 5-325 mg Reason for Request: required Pharmacy and phone number: [facility] Rx plan and phone number: [place] [phone] Is this a new medication for the patient? No. How did the patient obtain the medication on the lastfill? The patient used a different insurance last time. They used [facility]. What alternative medications does the pharmacy have in stock?: n/a Malathi Martinez Day Worker III [facility] ([facility]) 03/03/2024,4:05 PM * Telephone Encounter - Kelsea Ladd MD - 03/03/2024 8:34 AM EST Signed Prescriptions: Disp Refills HYDROcodone-Acetaminophen 5-325 MG Oral Ta*60 Tab*0 Sig: Take 1 Tablet by mouth every 12 hours as needed for Pain, Mild. Authorizing Provider: KELSEA LADD * Telephone Encounter - Jeanine Wall [facility] - 03/02/2024 8:35 PM ESTPending Prescriptions: Disp Refills HYDROcodone-Acetaminophen 5-325 MG Oral Ta*60 Tab*0 Sig: Take 1 Tablet by mouth every 12 hours as needed for Pain, Mild. * Telephone Encounter - Jeanine Wall [facility] - 03/02/2024 8:34 PM EST I have reviewed the patients controlled substance dispensing history in the Prescription Drug Monitoring Program in compliance with the [facility] regulations before prescribing a controlled substance. PDMP checked on 03/02/2024. Pending Prescriptions: Disp Refills HYDROcodone-Acetaminophen 5-325 MG Oral T*60 Tab*0 Sig: Take 1 Tablet by mouth every 12 hours as needed for Pain, Mild. Last Visit: 12/08/2023 (in office), Visit date not found (telemedicine) Next Visit: 07/25/2024 Date medication was last filled: 02/01/24 Date medication is due for refill: 03/01/24 Pharmacy: [facility] Is this request for a controlled [...] available upon request. Please approve if appropriate. ThanksJeanine PharmD Clinical Pharmacist [facility] ([facility]) [phone] 03/02/2024, 8:35 PM documented in this encounter Plan of Treatment Upcoming Encounters Date Type Department Care Team (Late st Contact Info) Description 05/18/2024 10:30 AM EDT Imaging Radiology [address] [place] [phone] 07/25/2024 9:00 AM EDT Office Visit Family Medicine [address] [place] [phone] Kelsea Ladd MD [address] [place] [address] [place] [address] Health Maintenance Due Date Last Done Comments [...] cancer documented in this encounter Care Teams Vice President Sales Relationship Specialty Start Date End Date Kelsea Ladd MD [address] [place] [address] [place] [phone] PCP - General Family Medicine 12/25/20 documented as of this encounter
--- OUTSIDE RECORDS SUMMARY | 2024-04-12 04:46 | External Medical Summary | Summary of Care ---
Author Name Unknown Organization [facility] Address [address] [facility] [place] [address] Phone [phone] Care Team Providers Care Programs Assistant Name Role Phone Kelsea Mcgrath MD Primary Care Prov ider Reason for Visit * Reason Onset Date Comments Side Effects of Medications 12/09/2023 Encounter Details Date Type Department Care Team (Late st Contact Info) Description 12/09/2023 Telephone Family Medicine [address] [phone] Blayne Owusu MD [address] [place] [address] [place] [phone] Side Effects of Medications Allergies Active Allergy Reactions Criticality Noted Date Comments Nitrofurantoin Rash 05/11/2015 Phenazopyridine Rash 05/11/2015 documented as of this encounter (statuses as of 12/24/2023) Medications losartan-hctz 100-25 mg per tab (HYZAAR) [...] IN EACH EYE TWICE DAILY 30 Each 08/11/19 19 Active Propylene Glycol 0.6 % [...] hours 20 Tablet 3 02/11/19 23 Active Potassium Chloride ER 10 MEQ Oral Capsule Extended ReleaseIndicatio ns:Hypokalemia Take by mouth 1 Capsule in the morning. 90 Capsule 3 11/27/19 23 Active Hydrocortisone (Perianal) 2.5 % External [...] bedtime 360 Tablet 3 07/01/19 24 Active amLODIPine Besylate 10 MG Oral Tablet (Norvasc)Indicat ions:HTN, goal below 150/90 TAKE ONE TABLET BY MOUTH EVERY MORNING 90 Tablet 1 07/06/19 24 Active Cetirizine HCl 10 MG Oral Tablet (ZyrTEC) TAKE ONE TABLET BY MOUTH EVERY MORNING 30 Tablet 5 08/06/19 24 Active Metoprolol Succinate ER 25 MG [...] mouth in the morning. 11/24/19 24 Active HYDROcodone-Acet aminophen 5-325 MG Oral TabletIndication s:Lumbar degenerative disc disease Take 1 Tablet by mouth every 12 hours as needed for Pain, Mild. 60 Tablet 11/30/19 24 Active Minoxidil 2.5 MG Oral Tablet (Loniten)Indicat ions:Hair loss Take 0.5 Tablets by mouth in the morning. 45 Tablet 11/30/19 24 Active Amoxicillin-Pot Clavulanate 875-125 MG Oral Tablet (Augmentin) Take 1 Tablet by mouth in the morning and 1 Tablet before bedtime. 14 Tablet 12/24/19 24 Active Ozempic (0.25 or 0.5 MG/DOSE) 2 MG/3ML Solution Pen-injector (Semaglutide(0.2 5 or 0.5MG/DOS))Indic ations:Prediabet es,Obesity, Class I, BMI 30.0-34.9 (see actual BMI) Inject 0.5 mg under the skin once a week. 3 mL 1 10/27/19 24 2023 Discontinued Doxycycline Hyclate 100 MG Oral CapsuleIndicatio ns:Acute frontal sinusitis, recurrence not specified Take 1 Capsule by mouth in the morning and 1 Capsule before bedtime. Do all this for 7 days. Take for 7 days. 14 Capsule 12/08/19 24 2023 Amoxicillin-Pot Clavulanate 875-125 MG Oral Tablet (Augmentin) Take 1 Tablet by mouth in the morning and 1 Tablet before bedtime. 14 Tablet 12/09/19 24 2023 Discontinued(R efill) documented as of this encounter (statuses as of 12/24/2023) Active Problems Problem Noted Date Diagnosed Date [...] as of this encounter (statuses as of 12/24/2023) Resolved Problems Problem Noted Date Diagnosed Date [...] as of this encounter (statuses as of 12/24/2023) Immunizations Name Administration Dates Next Due COVID-19 [...] as of this encounter Miscellaneous Notes * Addendum Note - Kelsea Mcgrath MD - 12/24/2023 2:52 PM EST Addended by: KELSEA ROYAL on: 12/24/2023 02:52 PM Modules accepted: Orders * Telephone Encounter - Kelsea Mcgrath MD - 12/24/2023 2:51 PM EST OK * Telephone Encounter - China Aguiar RN - 12/24/2023 2:01 PM EST PT WAS SEEN ON 12/08/23 for SINUSES Can she have another round of antibiotic? * Telephone Encounter - Angeles Rangel edger automatic - 12/24/2023 8:19 AM EST Pt calling stating she is still not feeling good. Requesting another rx for amoxicillin. Please advise. If appropriate new Rx can be sent to [facility]-[address] [place] Thank you, Angeles Rangel CPhT Master Tax Advisor [facility] ([facility]) 12/24/2023, 8:22 AM * Addendum Note - Blayne Owusu MD - 12/09/2023 12:47 PM EDTAddended by: BLAYNE OWUSU on: 12/09/2023 12:47 PM Modules accepted: Orders * Telephone Encounter - Blayne Owusu MD - 12/09/2023 12:47 PM EDT Med sent * Addendum Note - Chencho Silva [facility] - 12/09/2023 10:56 AM EDTAddended by: CHENCHO SILVA on: 12/09/2023 10:56 AM Modules accepted: Orders * Telephone Encounter - Chencho Silva RP - 12/09/2023 10:46 AM EDT Patient unable to tolerate Doxy she has tried to take with food and is still experiencing GI issues. Confirmed that patient is not allergic to PCN or Amoxil and she states she has taken Amoxil and Augmentin in the past without any issue. Recommend stopping Doxy and switching to Augmentin 875 bid for 10 days. Pended rx below. Please approve if appropriate. Thank you, Sp Silva, PharmD Clinical Pharmacist [facility] ([facility]) 12/09/23 10:53 AM [phone] * Telephone Encounter - Debbie Biswas CPhT - 12/09/2023 10:39 AM EDT Pt calling in to talk about side effects of Doxycycline Hyclate 100 MG Oral Capsule. Transferred torph. Thank you, Debbie Biswas Wool Washing Machine Operator [facility] ([facility]) 12/09/2023,10:40 AM documented in this encounter Plan of Treatment Upcoming Encounters Date Type Department Care Team (Late st Contact Info) Description 05/18/2024 10:30 AM EDT Imaging Radiology [address] [facility] [place] [address] 07/25/2024 9:00 AM EDT Office Visit Family Medicine [address] [place] [phone] Kelsea Mcgrath MD [address] [place] [address] [place] [phone] Health Maintenance Due Date Last Done Comments [...] 09/06/2013 Colorectal Cancer Screening 07/13/2033 Pneumococcal Vaccine: 65+ Years Completed 11/13/2016, 03/20/2015 Influenza Vaccine (FLU [...] filedocumented as of this encounter Care Teams Programs Assistant Relationship Specialty Start Date End Date Kelsea Mcgrath MD [address] [place] [address] [place] [phone] PCP - General Family Medicine 12/25/20 documented as of this encounter
--- OUTSIDE RECORDS SUMMARY | 2024-04-12 04:46 | External Medical Summary | Summary of Care ---
Author Name Unknown Organization [facility] Address [address] [facility] [place] [address] Phone [phone] Care Team Providers Care Boat Camp Operator Name Role Phone Tawana Mcgrath MD Primary Care Prov ider Reason for Visit * Reason Onset Date Comments Side Effects of Medications 12/09/2023 Encounter Details Date Type Department Care Team (Late st Contact Info) Description 12/09/2023 Telephone Family Medicine [address] [phone] Blayne Owusu MD [address] [place] [address] [place] [phone] Side Effects of Medications [...] Tablet before bedtime. 14 Tablet 12/09/19 24 Active Ozempic (0.25 or 0.5 MG/DOSE) 2 MG/3ML Solution Pen-injector (Semaglutide(0.2 5 or 0.5MG/DOS))Indic ations:Prediabet es,Obesity, Class I, BMI 30.0-34.9 (see actual BMI) Inject 0.5 mg under the skin once a week. 3 mL 1 10/27/19 24 024 Discontinued Doxycycline Hyclate 100 MG Oral CapsuleIndicatio ns:Acute frontal sinusitis, recurrence not specified Take 1 Capsule by mouth in the morning and 1 Capsule before bedtime. Do all this for 7 days. Take for 7 days. 14 Capsule 12/08/19 24 024 documented as of this encounter (statuses as [...] mRNA, LNP-s, No Pre serve, 2-Dose Series ([email or web address]) 01/07/2021,03/19/2020,02/27/2020 Pneumococcal Conjugate Vacc, 13 Valent (Prevnar) [...] encounter Miscellaneous Notes * Telephone Encounter - Angeles Rangel ornamental metal erector apprentice - 12/24/2023 8:19 AM EST Pt calling stating she is still not feeling good. Requesting another rx for amoxicillin. Please advise. If appropriate new Rx can be sent to [facility]-[address] [place] Thank you, Angeles Rangel compressor operator Shipping And Receiving Associate [facility] ([facility]) 12/24/2023, 8:22 AM * Addendum Note - Blayne Owusu MD - 12/09/2023 12:47 PM EDTAddended by: BLAYNE OWUSU on: 12/09/2023 12:47 PM Modules accepted: Orders * Telephone Encounter - Blayne Owusu MD - 12/09/2023 12:47 PM EDT Med sent * Addendum Note - Chencho Silva RPh - 12/09/2023 10:56 AM EDTAddended by: CHENCHO SILVA on: 12/09/2023 10:56 AM Modules accepted: Orders * Telephone Encounter - Chencho Silva [facility] - 12/09/2023 10:46 AM EDT Patient unable [...] Clinical Pharmacy Services ([facility]) 12/09/23 10:53 AM [phone] * Telephone Encounter - Debbie Biswas CPhT - 12/09/2023 10:39 AM EDT Pt calling in to talk about side effects of Doxycycline Hyclate 100 MG Oral Capsule. Transferred torph. Thank you, Debbie Biswas Suspension Cord Tier [facility] ([facility]) 12/09/2023,10:40 AM documented in this encounter Plan of Treatment Upcoming Encounters Date Type Department Care Team (Late st Contact Info) Description 05/18/2024 10:30 AM EDT Imaging Radiology [facility] [address] [place] [address] 07/25/2024 9:00 AM EDT Office Visit Family Medicine [facility] [place] [place] [phone] Tawana Mcgrath MD [address] [place] [address] [place] [phone] Health Maintenance Due Date Last Done Comments [...] filedocumented as of this encounter Care Teams Boat Camp Operator Relationship Specialty Start Date End Date Tawana Mcgrath MD [address] [place] [address] [place] [phone] PCP - General Family Medicine 12/25/20 documented as of this encounter
--- OUTSIDE RECORDS SUMMARY | 2024-04-12 04:46 | External Medical Summary | Summary of Care ---
Author Name Unknown Organization [facility] Address [address] [place] [address] Phone [phone] Care Team Providers Care Spike Driver Name Role Phone Kelsea Ladd MD Primary Care Prov ider Reason for Visit * Reason Comments eRx-Medication Refill Encounter Details Date Type Department Care Team (Late st Contact Info) Description 01/17/2024 Refill General Internal Medicine [facility] [address] [facility] [address] Kelsea Ladd MD [address] [place] [address] [place] [phone] Allergies Active Allergy Reactions Criticality Noted Date Comments Nitrofurantoin Rash 05/11/2015 Phenazopyridine Rash 05/11/2015 documented as of this encounter (statuses as of 01/17/2024) Medications losartan-hctz 100-25 mg per tab (HYZAAR) [...] the morning. 45 Tablet 11/30/19 24 Active Ozempic (0.25 or 0.5 MG/DOSE) 2 MG/3ML Solution Pen-injector (Semaglutide(0.2 5 or 0.5MG/DOS))Indic ations:Prediabet es,Obesity, Class I, BMI 30.0-34.9 (see actual BMI) Inject 0.5 mg under the skin once a week. 3 mL 1 12/21/19 24 Active Amoxicillin-Pot Clavulanate 875-125 MG Oral Tablet (Augmentin) Take 1 Tablet by mouth in the morning and 1 Tablet before bedtime. 14 Tablet 12/24/19 24 Active Potassium Chloride ER 10 MEQ Oral Capsule Extended ReleaseIndicatio ns:Hypokalemia Take 1 Capsule by mouth in the morning. 90 Capsule 3 01/01/20 24 Active HYDROcodone-Acet aminophen 5-325 MG Oral TabletIndication s:Lumbar degenerative disc disease Take 1 Tablet by mouth every 12 hours as needed for Pain, Mild. 60 Tablet 01/01/20 24 Active amLODIPine Besylate 10 MG Oral Tablet (Norvasc)Indicat ions:HTN, goal below 150/90 TAKE ONE TABLET BY MOUTH EVERY MORNING 90 Tablet 1 01/05/20 24 Active Cetirizine HCl 10 MG Oral Tablet (ZyrTEC) TAKE ONE TABLET BY MOUTH EVERY MORNING 30 Tablet 5 01/17/20 24 Active Cetirizine HCl 10 MG Oral Tablet (ZyrTEC) TAKE ONE TABLET BY MOUTH EVERY MORNING 30 Tablet 5 08/06/19 24 024 Discontinued documented as of this encounter (statuses as of 01/17/2024) Active Problems Problem Noted Date Diagnosed Date [...] as of this encounter (statuses as of 01/17/2024) Resolved Problems Problem Noted Date Diagnosed Date [...] as of this encounter (statuses as of 01/17/2024) Immunizations Name Administration Dates Next Due COVID-19 mRNA, LNP-s, No Pre serve, 2-Dose Series ([employer]) 01/07/2021,03/19/2020,02/27/2020 Pneumococcal Conjugate Vacc, 13 Valent (Prevnar) [...] encounter Miscellaneous Notes * Telephone Encounter - Emily Cruz [facility] - 01/17/2024 8:11 PM ESTSigned Prescriptions: Disp Refills Cetirizine HCl 10 MG Oral Tablet (ZyrTEC) 30 Tab*5 Sig: TAKE ONETABLET BY MOUTH EVERY MORNINGAuthorizing Provider: KELSEA LADD User: EMILY CRUZ documented in this encounter Plan of Treatment Upcoming Encounters Date Type Department Care Team (Late st Contact Info) Description 05/18/2024 10:30 AM EDT Imaging Radiology [address] [place] [address] 07/25/2024 9:00 AM EDT Office Visit Family Medicine [address] [place] [phone] Kelsea Ladd MD [address] [place] [address] [place] [phone] Health Maintenance Due Date Last Done Comments [...] filedocumented as of this encounter Care Teams Spike Driver Relationship Specialty Start Date End Date Kelsea Ladd MD [address] [place] [address] [place] [phone] PCP - General Family Medicine 12/25/20 documented as of this encounter
--- OUTSIDE RECORDS SUMMARY | 2024-04-12 04:46 | External Medical Summary | Summary of Care ---
Author Name Unknown Organization [facility] Address [address] [facility] [place] [address] Phone [phone] Care Team Providers Care Nut Roaster Helper Name Role Phone Kelsea Ladd MD Primary Care Prov ider Reason for Visit * Reason Comments eRx-Medication Refill Encounter Details Date Type Department Care Team (Late st Contact Info) Description 12/19/2023 Refill Family Medicine [address] [phone] Kelsea Ladd MD [address] [place] [address] [place] [address] Prediabetes; Obesity, Class I, BMI 30.0-34.9 (see actual BMI) Allergies Active Allergy Reactions Criticality Noted Date Comments Nitrofurantoin Rash 05/11/2015 Phenazopyridine Rash 05/11/2015 documented as of this encounter (statuses as of 12/21/2023) Medications losartan-hctz 100-25 mg per tab (HYZAAR) [...] week. 3 mL 1 12/21/19 24 Active Ozempic (0.25 or 0.5 MG/DOSE) 2 MG/3ML Solution Pen-injector (Semaglutide(0.2 5 or 0.5MG/DOS))Indic ations:Prediabet es,Obesity, Class I, BMI 30.0-34.9 (see actual BMI) Inject 0.5 mg under the skin once a week. 3 mL 1 10/27/19 24 024 Discontinued documented as of this encounter (statuses as of 12/21/2023) Active Problems Problem Noted Date Diagnosed Date [...] as of this encounter (statuses as of 12/21/2023) Resolved Problems Problem Noted Date Diagnosed Date [...] as of this encounter (statuses as of 12/21/2023) Immunizations Name Administration Dates Next Due COVID-19 [...] encounter Miscellaneous Notes * Telephone Encounter - Elpidio Barnes [facility] - 12/21/2023 12:21 PM ESTSigned Prescriptions: Disp Refills Ozempic (0.25 or 0.5 MG/DOSE) 2 MG/3ML Heather*3 mL 1 Sig: Inject 0.5 mg under the skin once a week.Authorizing Provider: KELSEA LADD User: ELPIDIO DEWEY * Telephone Encounter - Elpidio Barnes [facility] - 12/21/2023 12:17 PM EST Pending Prescriptions: Disp Refills Ozempic (0.25 or 0.5 MG/DOSE) 2 MG/3ML So*3 mL 1 Sig: Inject 0.5 mg under the skin once a week. Last Visit: 12/08/2023 (in office), Visit date not found (telemedicine) Next Visit: 07/25/2024 If no future appointments scheduled, and last appointment is greater than a year ago, please schedule patient for a follow-up appointment Last date the medication was ordered: 10/27/23 Pharmacy: [facility]-[address] [place] Is this request for a controlled substance? No Urine Drug Screen: Results for orders placed or performed in [...] purposes. Confirmatory testing is available upon request. Patient Phone Numbers mobile [phone] Labs: Lab Results Component Value Date/Time CREAT 0.8 11/24/2023 01:38 PM CREAT 0.95 07/17/2023 12:00 AM CREAT 1.0 02/14/2020 10:55 AM POTASSIUM 3.5 11/24/2023 01:38 PM POTASSIUM 3.4 (A) 07/17/2023 12:00 AM POTASSIUM 3.8 02/14/2020 10:55 AM TSH 1.03 11/24/2023 01:38 PM TSH 0.27 02/14/2020 10:55 AM LDL 81 11/24/2023 01:38 PM LDL 54 02/18/2019 01:53 PM LDL NOT APPLICABLE 02/18/2019 01:53 PM ALT 34 11/24/2023 01:38 PM ALT 28 02/06/2020 11:49 AM HGBA1C 5.5 11/24/2023 01:38 PM HGBA1C 5.6 02/06/2020 11:49 AM documented in this encounter Plan of Treatment Upcoming Encounters Date Type Department Care Team (Late st Contact Info) Description 05/18/2024 10:30 AM EDT Imaging Radiology [address] [facility] [place] [address] 07/25/2024 9:00 AM EDT Office Visit Family Medicine [address] [place] [phone] Kelsea Ladd MD [address] [place] [address] [place] [address] Health Maintenance Due Date [...] unspecified documented in this encounter Care Teams Nut Roaster Helper Relationship Specialty Start Date End Date Kelsea Ladd MD [address] [place] [address] [place] [phone] PCP - General Family Medicine 12/25/20 documented as of this encounter
--- OUTSIDE RECORDS SUMMARY | 2024-04-12 04:46 | External Medical Summary | Summary of Care ---
Author Name Unknown Organization [facility] Address [address] [facility] [place] [address] Phone [phone] Care Team Providers Care Dyeing Machine Tender Name Role Phone Kelsea Ladd MD Primary Care Prov ider Reason for Visit * Reason Onset Date Comments Medication Refill 12/31/2023 Encounter Details Date Type Department Care Team (Late st Contact Info) Description 12/31/2023 Refill Family Medicine [address] [phone] Kelsea Ladd MD [address] [place] [address] [place] [address] Lumbar degenerative disc disease Allergies Active Allergy Reactions Criticality Noted Date Comments Nitrofurantoin Rash 05/11/2015 Phenazopyridine Rash 05/11/2015 documented as of this encounter (statuses as of 01/01/2024) Medications losartan-hctz 100-25 mg per tab (HYZAAR) [...] morning. 90 Capsule 3 01/01/20 24 Active HYDROcodone-Aceta minophen 5-325 MG Oral TabletIndications :Lumbar degenerative disc disease Take 1 Tablet by mouth every 12 hours as needed for Pain, Mild. 60 Tablet 01/01/20 24 Active HYDROcodone-Aceta minophen 5-325 MG Oral TabletIndications :Lumbar degenerative disc disease Take 1 Tablet by mouth every 12 hours as needed for Pain, Mild. 60 Tablet 11/30/19 24 024 Discontin ued(Refil l) documented as of this encounter (statuses as of 01/01/2024) Active Problems Problem Noted Date Diagnosed Date [...] as of this encounter (statuses as of 01/01/2024) Resolved Problems Problem Noted Date Diagnosed Date [...] as of this encounter (statuses as of 01/01/2024) Immunizations Name Administration Dates Next Due COVID-19 [...] Telephone Encounter - Kelsea Ladd MD - 01/01/2024 2:25 PM EST Signed Prescriptions: Disp Refills HYDROcodone-Acetaminophen 5-325 MG Oral Ta*60 Tab*0 Sig: Take 1 Tablet by mouth every 12 hours as needed for Pain, Mild. Authorizing Provider: KELSEA LADD * Telephone Encounter - Sofi Zheng [facility] - 01/01/2024 1:54 PM ESTPending Prescriptions: Disp Refills HYDROcodone-Acetaminophen 5-325 MG Oral Ta*60 Tab*0 Sig: Take 1 Tablet by mouth every 12 hours as needed for Pain, Mild. * Telephone Encounter - Sofi Zheng [facility] - 01/01/2024 1:54 PM EST I have reviewed the patients controlled substance dispensing history in the Prescription Drug Monitoring Program in compliance with the [facility] regulations before prescribing a controlled substance. PDMP checked on 01/01/2024. Pending Prescriptions: Disp Refills HYDROcodone-Acetaminophen 5-325 MG Oral T*60 Tab*0 Sig: Take 1 Tablet by mouth every 12 hours as needed for Pain, Mild. Last Visit: 12/08/2023 (in office), Visit date not found (telemedicine) Next Visit: 07/25/2024 Date medication was last filled: 11/30/23 Date medication is due for refill: 12/29/23 Pharmacy: [facility] Is this request for a controlled [...] upon request. Please approve if appropriate. Thanks, Sofi Zheng, PharmD Clinical Pharmacist Centralized Clinical Pharmacy Services [phone] 01/01/2024 1:54 PM documented in this encounter Plan of Treatment Upcoming Encounters Date Type Department Care Team (Late st Contact Info) Description 05/18/2024 10:30 AM EDT Imaging Radiology [address] [place] [address] 07/25/2024 9:00 AM EDT Office Visit Family Medicine [address] [address] [phone] Kelsea Ladd MD [address] [place] [address] [place] [address] Health Maintenance Due Date Last Done Comments [...] Degeneration of lumbar or lumbosacral intervertebral disc documented in this encounter Care Teams Dyeing Machine Tender Relationship Specialty Start Date End Date Kelsea Ladd MD [address] [place] [address] [place] [phone] PCP - General Family Medicine 12/25/20 documented as of this encounter
--- OUTSIDE RECORDS SUMMARY | 2024-04-12 04:46 | External Medical Summary | Summary of Care ---
Author Name Unknown Organization [facility] Address [address] [facility] [place] [address] Phone [phone] Care Team Providers Care Doctor Of Medicine Name Role Phone Tawana Mcgrath MD Primary Care Prov ider Reason for Visit * Reason Onset Date Comments Side Effects of Medications 12/09/2023 Encounter Details Date Type Department Care Team (Late st Contact Info) Description 12/09/2023 Telephone Family Medicine [address] [phone] Blayne Owusu MD [address] [place] [address] [place] [address] Side Effects of Medications [...] mRNA, LNP-s, No Pre serve, 2-Dose Series (Appvance) 01/07/2021,03/19/2020,02/27/2020 Pneumococcal Conjugate Vacc, 13 Valent (Prevnar) [...] antibiotic? * Telephone Encounter - Angeles Rangel PHARM Tech - 12/24/2023 8:19 AM EST Pt calling stating she is still not feeling good. Requesting another rx for amoxicillin. Please advise. If appropriate new Rx can be sent to [facility] [address] [place] GONZALES Thank you, Angeles Rangel CPhT Manager Science [facility] Services ([facility]) 12/24/2023, 8:22 AM * Addendum Note - Blayne Owusu MD - 12/09/2023 12:47 PM EDTAddended by: BLAYNE OWUSU on: 12/09/2023 12:47 PM Modules accepted: Orders * Telephone Encounter - Blayne Owusu MD - 12/09/2023 12:47 PM EDT Med sent * Addendum Note - Chencho Silva [facility] - 12/09/2023 10:56 AM EDTAddended by: CHENCHO SILVA on: 12/09/2023 10:56 AM Modules accepted: Orders * Telephone Encounter - Chencho Silva [facility] - 12/09/2023 10:46 AM EDT Patient unable [...] Clinical Pharmacy Services ([facility]) 12/09/23 10:53 AM [phone] * Telephone Encounter - Debbie Biswas CPhT - 12/09/2023 10:39 AM EDT Pt calling in to talk about side effects of Doxycycline Hyclate 100 MG Oral Capsule. Transferred torph. Thank you, Debbie Biswas Recreation Attendant Supervisor [facility] Pharmacy Services ([facility]) 12/09/2023,10:40 AM documented in this encounter Plan of Treatment Upcoming Encounters Date Type Department Care Team (Late st Contact Info) Description 05/18/2024 10:30 AM EDT Imaging Radiology [address] [address] 07/25/2024 9:00 AM EDT Office Visit Family Medicine [address] [phone] Tawana Mcgrath MD [address] [place] [address] [place] [address] Health Maintenance Due Date Last Done Comments [...] filedocumented as of this encounter Care Teams Doctor Of Medicine Relationship Specialty Start Date End Date Tawana Mcgrath MD [address] [place] [address] [place] [phone] PCP - General Family Medicine 12/25/20 documented as of this encounter
--- OUTSIDE RECORDS SUMMARY | 2024-04-12 04:46 | External Medical Summary | Summary of Care ---
Author Name Unknown Organization [facility] Address [address] [facility] [place] [address] Phone [phone] Care Team Providers Care Stand Up Forklift Operator Name Role Phone Tawana Mcgrath MD Primary Care Prov ider Reason for Visit * Reason Onset Date Comments Side Effects of Medications 12/09/2023 Encounter Details Date Type Department Care Team (Late st Contact Info) Description 12/09/2023 Telephone Family Medicine [address] [phone] Manisha Owusu MD [address] [place] [address] [place] [address] Side Effects of Medications Allergies Active Allergy Reactions Criticality Noted Date Comments Nitrofurantoin Rash 05/11/2015 Phenazopyridine Rash 05/11/2015 documented as of this encounter (statuses as of 12/25/2023) Medications losartan-hctz 100-25 mg per tab (HYZAAR) [...] as of this encounter (statuses as of 12/25/2023) Active Problems Problem Noted Date Diagnosed Date [...] as of this encounter (statuses as of 12/25/2023) Resolved Problems Problem Noted Date Diagnosed Date [...] as of this encounter (statuses as of 12/25/2023) Immunizations Name Administration Dates Next Due COVID-19 [...] encounter Miscellaneous Notes * Telephone Encounter - Elayne Dobbins LPN - 12/25/2023 10:32 AM EST Pt notified. * Addendum Note - Tawana Mcgrath MD - 12/24/2023 2:52 PM EST Addended by: TAWANA ROYAL on: 12/24/2023 02:52 PM Modules accepted: Orders * Telephone Encounter - Tawana Mcgrath MD - 12/24/2023 2:51 PM EST OK * Telephone Encounter - China Aguiar RN - 12/24/2023 2:01 PM EST PT WAS SEEN ON 12/08/23 for SINUSES Can she have another round of antibiotic? * Telephone Encounter - Angeles Rangel, western tack assembly line worker - 12/24/2023 8:19 AM EST Pt calling stating she is still not feeling good. Requesting another rx for amoxicillin. Please advise. If appropriate new Rx can be sent to [facility] [address] CLA[place] GONZALES Thank you, Angeles Rangel CPhT Teaching Manager Centralized Clinical Pharmacy Services ([facility]) 12/24/2023, 8:22 AM * Addendum Note - Manisha Owusu MD - 12/09/2023 12:47 PM EDTAddended by: MANISHA OWUSU on: 12/09/2023 12:47 PM Modules accepted: Orders * Telephone Encounter - Manisha Owusu MD - 12/09/2023 12:47 PM EDT Med sent * Addendum Note - Chencho Silva RPh - 12/09/2023 10:56 AM EDTAddended by: CHENCHO SILVA on: 12/09/2023 10:56 AM Modules accepted: Orders * Telephone Encounter - Chencho Silva RPh - 12/09/2023 10:46 AM EDT Patient unable [...] approve if appropriate. Thank you, Sp Silva, JonelleD Clinical Pharmacist Centralized Clinical Pharmacy Services ([facility]) 12/09/23 10:53 AM [phone] * Telephone Encounter - Debbie Biswas CPhT - 12/09/2023 10:39 AM EDT Pt calling in to talk about side effects of Doxycycline Hyclate 100 MG Oral Capsule. Transferred torph. Thank you, Debbie Biswas Marking Stitcher Central[facility] Services ([facility]) 12/09/2023,10:40 AM documented in this encounter Plan of Treatment Upcoming Encounters Date Type Department Care Team (Late st Contact Info) Description 05/18/2024 10:30 AM EDT Imaging Radiology [address] [place] [address] 07/25/2024 9:00 AM EDT Office Visit Family Medicine [address] [place] [phone] Tawana Mcgrath MD [address] [place] [address] [place] [address] Health Maintenance Due Date Last Done Comments Cologuard 1995 Fecal Occult Blood Test 1995 Sigmoidoscopy 1995 Zoster Vaccines (1 of 2) 02/23/2000 Adult Wellness Visit 02/23/2016 Depression Screening 06/13/2021 06/13/2020 COVID-19 Vaccine ( season) 2023 01/07/2021, 03/19/2020, 02/27/2020 Mammogram 05/17/2024 05/18/2023, 08/2022, 02/14/2021, Additional history exists DXA Scan [...] filedocumented as of this encounter Care Teams Stand Up Forklift Operator Relationship Specialty Start Date End Date Tawana Mcgrath MD [address] [place] [address] [place] [phone] PCP - General Family Medicine 12/25/20 documented as of this encounter
--- OUTSIDE RECORDS SUMMARY | 2024-04-12 04:46 | External Medical Summary | Summary of Care ---
Author Name Unknown Organization [facility] Address [address] [facility] [place] [address] Phone [phone] Care Team Providers Care Resizer Operator Name Role Phone Kelsea Ladd MD Primary Care Prov ider Reason for Visit * Reason Onset Date Comments Medication Refill 12/31/2023 Encounter Details Date Type Department Care Team (Late st Contact Info) Description 12/31/2023 Refill Family Medicine [address] [place] [phone] Patricia Roche PA-C [address] [place] [address] [place] [address] Hypokalemia Allergies Active Allergy Reactions Criticality Noted Date [...] mouth in the morning. 11/24/19 24 Active HYDROcodone-Aceta minophen 5-325 MG Oral [...] morning. 90 Capsule 3 01/01/20 24 Active Potassium Chloride ER 10 MEQ Oral Capsule Extended ReleaseIndication s:Hypokalemia Take by mouth 1 Capsule in the morning. 90 Capsule 3 11/27/19 23 024 Discontin ued(Refil l) documented as of [...] mRNA, LNP-s, No Pre serve, 2-Dose Series (Mashable) 01/07/2021,03/19/2020,02/27/2020 Pneumococcal Conjugate Vacc, 13 Valent (Prevnar) [...] Miscellaneous Notes * Telephone Encounter - Elpidio Leyva [facility] - 01/01/2024 3:26 AM ESTSigned Prescriptions: Disp Refills Potassium Chloride ER 10 MEQ Oral Capsule *90 Cap*3 Sig: Take 1 Capsule by mouth in the morning.Authorizing Provider: KELSEA LADD User: ELPIDIO LEYVA * Telephone Encounter - Elpidio Leyva [facility] - 01/01/2024 3:24 AM EST Component Latest Ref Rng 10/17/2022 07/17/2023 11/24/2023 BUN 6 - 20 mg/dL 22 (H) 15 CREATININE 0.5 - 1.0 mg/dL 0.8 0.95 (E) 0.8 EGFR >=60 mL/min 81 63 (E) 74 SODIUM 135 - 146 mmol/L 138 141 POTASSIUM 3.5 - 5.1 mmol/L 4.4 3.4 ! (E) 3.5 CHLORIDE 98 - 107 mmol/L 100 103 CO2 22 - 32 mmol/L 26 26 ANION GAP 7 - 15 mmol/L 12 12 GLUCOSE 70 - 120 mg/dL 96 98 (E) 85 Albumin 3.8 - 5.0 g/dL 4.9 AST 10 - 35 U/L 29 Alkaline Phosphatase 35 - 130 U/L 111 Bilirubin, Total <=1.2 mg/dL 0.9 CALCIUM 8.4 - 10.2 mg/dL 9.7 9.5 Protein 6.0 - 8.3 g/dL 6.7 ALT 10 - 35 U/L 34 Legend: (H) High ! Abnormal (E) External lab result Pt to continue K+ just within normal range Elpidio Leyva [facility] Clinical Pharmacist Telepharmacy [phone] 01/01/2024 3:26 AM documented in this encounter Plan of Treatment Upcoming Encounters Date Type Department Care Team (Late st Contact Info) Description 05/18/2024 10:30 AM EDT Imaging Radiology [address] [place] [address] 07/25/2024 9:00 AM EDT Office Visit Family Medicine [address] [place] [phone] Kelsea Ladd MD [address] [place] [address] [place] [address] Health Maintenance Due Date Last Done Comments Cologuard 1995 Fecal Occult Blood Test 1995 Sigmoidoscopy 1995 Zoster Vaccines (1 of 2) 02/23/2000 Adult Wellness Visit 02/23/2016 Depression Screening 06/13/2021 06/13/2020 COVID-19 Vaccine ( season) 2023 01/07/2021, 03/19/2020, 02/27/2020 Mammogram 05/17/2024 05/18/2023, 08/2022, 02/14/2021, Additional history exists DXA Scan 07/08/2024 07/08/2017 GFR 11/23/2024 11/24/2023, 08/2023, 10/17/2022, Additional history exists TSH 11/23/2024 11/24/2023, 0507/2023, 10/17/2022, Additional history exists Albumin/Creatinine Ratio 10/17/2025 [...] as of this encounter Visit Diagnoses Diagnosis Hypokalemia Hypopotassemia documented in this encounter Care Teams Resizer Operator Relationship Specialty Start Date End Date Kelsea Ladd MD [address] [place] [address] [place] [phone] PCP - General Family Medicine 12/25/20 documented as of this encounter
--- OUTSIDE RECORDS SUMMARY | 2024-04-12 04:46 | External Medical Summary | Summary of Care ---
Author Name Unknown Organization [facility] Address [address] [facility] [place] [address] Phone [phone] Care Team Providers Care Outpatient Program Coordinator Name Role Phone Kelsea Mcgrath MD Primary Care Prov ider Reason for Visit * Reason Onset Date Comments Side Effects of Medications 12/09/2023 Encounter Details Date Type Department Care Team (Late st Contact Info) Description 12/09/2023 Telephone Family Medicine [address] [phone] Blayne Owusu MD [address] [place] [address] [place] [address] Side Effects of Medications [...] antibiotic? * Telephone Encounter - Angeles Rangel solar installation technician - 12/24/2023 8:19 AM EST Pt calling stating she is still not feeling good. Requesting another rx for amoxicillin. Please advise. If appropriate new Rx can be sent to [facility] [place]ON[place]AL[place] Thank you, Angeles Rangel CPhT Tour Bus Driver/Guide Centralized Clinical Pharmacy Services ([facility]) 12/24/2023, 8:22 AM * Addendum Note - Blayne Owusu MD - 12/09/2023 12:47 PM EDTAddended by: BLAYNE OWUSU on: 12/09/2023 12:47 PM Modules accepted: Orders * Telephone Encounter - Blayne Owusu MD - 12/09/2023 12:47 PM EDT Med sent * Addendum Note - Chencho Silva [facility] - 12/09/2023 10:56 AM EDTAddended by: CHENCHO [...] Clinical Pharmacy Services ([facility]) 12/09/23 10:53 AM [phone] * Telephone Encounter - Debbie Biswas CPhT - 12/09/2023 10:39 AM EDT Pt calling in to talk about side effects of Doxycycline Hyclate 100 MG Oral Capsule. Transferred torph. Thank you, Debbie Biswas Crop Setting Out Machine Operator [facility] Services ([facility]) 12/09/2023,10:40 AM documented in this encounter Plan of Treatment Upcoming Encounters Date Type Department Care Team (Late st Contact Info) Description 05/18/2024 10:30 AM EDT Imaging Radiology [address] [facility] [place] [address] 07/25/2024 9:00 AM EDT Office Visit Family Medicine [address] [place] [phone] Kelsea Mcgrath MD [address] [place] [address] [place] [address] Health Maintenance Due Date Last Done Comments [...] filedocumented as of this encounter Care Teams Outpatient Program Coordinator Relationship Specialty Start Date End Date Kelsea Mcgrath MD [address] [place] [address] [place] [phone] PCP - General Family Medicine 12/25/20 documented as of this encounter
--- OUTSIDE RECORDS SUMMARY | 2024-04-12 04:46 | External Medical Summary | Summary of Care ---
Author Name Unknown Organization [facility] Address [address] [facility] [place] [address] Phone [phone] Care Team Providers Care Training Assistant Name Role Phone Kelsea Ladd MD Primary Care Prov ider Reason for Visit * Reason Onset Date Comments Medication Refill 01/30/2024 Encounter Details Date Type Department Care Team (Late st Contact Info) Description 01/30/2024 Refill Family Medicine [address] [phone] Kelsea Ladd MD [address] [place] [address] [place] [address] Lumbar degenerative disc disease Allergies Active Allergy Reactions Criticality Noted Date Comments Nitrofurantoin Rash 05/11/2015 Phenazopyridine Rash 05/11/2015 documented as of this encounter (statuses as of 02/01/2024) Medications losartan-hctz 100-25 mg per tab (HYZAAR) [...] MORNING 30 Tablet 5 01/17/20 24 Active HYDROcodone-Aceta minophen 5-325 MG Oral TabletIndications :Lumbar degenerative disc disease Take 1 Tablet by mouth every 12 hours as needed for Pain, Mild. 60 Tablet 02/01/20 24 Active HYDROcodone-Aceta minophen 5-325 MG Oral TabletIndications :Lumbar degenerative disc disease Take 1 Tablet by mouth every 12 hours as needed for Pain, Mild. 60 Tablet 01/01/20 24 024 Discontin ued(Refil l) documented as of this encounter (statuses as of 02/01/2024) Active Problems Problem Noted Date Diagnosed Date [...] as of this encounter (statuses as of 02/01/2024) Resolved Problems Problem Noted Date Diagnosed Date [...] as of this encounter (statuses as of 02/01/2024) Immunizations Name Administration Dates Next Due COVID-19 [...] Telephone Encounter - Kelsea Ladd MD - 02/01/2024 9:03 AM EST Signed Prescriptions: Disp Refills HYDROcodone-Acetaminophen 5-325 MG Oral Ta*60 Tab*0 Sig: Take 1 Tablet by mouth every 12 hours as needed for Pain, Mild. Authorizing Provider: KELSEA LADD * Telephone Encounter - Danica Hall RP - 01/31/2024 3:09 PM EST Pending Prescriptions: Disp Refills HYDROcodone-Acetaminophen 5-325 MG Oral Ta*60 Tab*0 Sig: Take 1 Tablet by mouth every 12 hours as needed for Pain, Mild. * Telephone Encounter - Danica Hall RPh - 01/31/2024 3:09 PM EST I have reviewed the patients controlled substance dispensing history in the Prescription Drug Monitoring Program in compliance with the [facility] regulations before prescribing a controlled substance. PDMP checked on 01/31/2024. Pending Prescriptions: Disp Refills HYDROcodone-Acetaminophen 5-325 MG Oral T*60 Tab*0 Sig: Take 1 Tablet by mouth every 12 hours as needed for Pain, Mild. Last Visit: 12/08/2023 (in office), Visit date not found (telemedicine) Next Visit: 07/25/2024 Date medication was last filled: 12/31 Date medication is due for refill: 01/29 Pharmacy: [facility] Is this request for a controlled [...] available upon request. Please approve if appropriate. Thank you, Danica Hall, PharmD Clinical Pharmacist Centralized Clinical Pharmacy Services ([facility]) 01/31/24 3:09 PM [phone] documented in this encounter Plan of Treatment Upcoming Encounters Date Type Department Care Team (Late st Contact Info) Description 05/18/2024 10:30 AM EDT Imaging Radiology [address], [address] [place] [address] 07/25/2024 9:00 AM EDT Office Visit Family Medicine [address] [place] [phone] Kelsea Ladd MD [address] [place] [address] [place] [phone] Health Maintenance Due Date Last Done Comments [...] disc documented in this encounter Care Teams Training Assistant Relationship Specialty Start Date End Date Kelsea Ladd MD [address] [place] [address] [place] [address] PCP - General Family Medicine 12/25/20 documented as of this encounter
--- OUTSIDE RECORDS SUMMARY | 2024-04-12 04:46 | External Medical Summary | Summary of Care ---
Author Name Unknown Organization [facility] Address [address] [place] [address] Phone [phone] Care Team Providers Care Engraving Plate Maker Name Role Phone Kelsea Ladd MD Primary Care Prov ider Reason for Visit * Reason Comments eRx-Medication Refill Encounter Details Date Type Department Care Team (Late st Contact Info) Description 01/04/2024 Refill Family Medicine [address] [phone] Kelsea Ladd MD [address] [place] [address] [place] [address] HTN, goal below 150/90 Allergies Active Allergy Reactions Criticality Noted Date Comments Nitrofurantoin Rash 05/11/2015 Phenazopyridine Rash 05/11/2015 documented as of this encounter (statuses as of 01/05/2024) Medications losartan-hctz 100-25 mg per tab (HYZAAR) [...] bedtime 360 Tablet 3 07/01/19 24 Active Cetirizine HCl 10 MG Oral [...] MORNING 90 Tablet 1 01/05/20 24 Active amLODIPine Besylate 10 MG Oral Tablet (Norvasc)Indicat ions:HTN, goal below 150/90 TAKE ONE TABLET BY MOUTH EVERY MORNING 90 Tablet 1 07/06/19 24 024 Discontinued documented as of this encounter (statuses as of 01/05/2024) Active Problems Problem Noted Date Diagnosed Date [...] as of this encounter (statuses as of 01/05/2024) Resolved Problems Problem Noted Date Diagnosed Date [...] as of this encounter (statuses as of 01/05/2024) Immunizations Name Administration Dates Next Due COVID-19 mRNA, LNP-s, No Pre serve, 2-Dose Series (Novinda) 01/07/2021,03/19/2020,02/27/2020 Pneumococcal Conjugate Vacc, 13 Valent (Prevnar) [...] encounter Miscellaneous Notes * Telephone Encounter - Fany Gomez [facility] - 01/05/2024 11:24 AM ESTSigned Prescriptions: Disp Refills amLODIPine Besylate 10 MG Oral Tablet (Nor*90 Tab*1 Sig: TAKE ONE TABLET BY MOUTH EVERY MORNINGAuthorizing Provider: KELSEA LADD User: FANY GOMEZ documented in this encounter Plan of Treatment Upcoming Encounters Date Type Department Care Team (Late st Contact Info) Description 05/18/2024 10:30 AM EDT Imaging Radiology [address] [place] [address] 07/25/2024 9:00 AM EDT Office Visit Family Medicine [facility] [address] [place] [address] [phone] Kelsea Ladd MD [address] [place] [address] [place] [address] Health Maintenance Due Date Last Done Comments [...] as of this encounter Visit Diagnoses Diagnosis HTN, goal below 150/90 documented in this encounter Care Teams Engraving Plate Maker Relationship Specialty Start Date End Date Kelsea Ladd MD [address] [place] [address] [place] [phone] PCP - General Family Medicine 12/25/20 documented as of this encounter
--- OUTSIDE RECORDS SUMMARY | 2024-04-12 04:47 | External Medical Summary | Summary of Care ---
Author Name Unknown Organization [facility] Address [address] [facility] [place] [address] Phone [phone] Care Team Providers Care Flue Gas Analyst Name Role Phone Tawana Mcgrath MD Primary Care Prov ider Reason for Visit * Reason Onset Date Comments Side Effects of Medications 12/09/2023 Encounter Details Date Type Department Care Team (Late st Contact Info) Description 12/09/2023 Telephone Family Medicine [address] [phone] Blayne Owusu MD [address] [place] [address] [place] [address] Side Effects of Medications Allergies Active Allergy Reactions Criticality Noted Date Comments Amoxicillin 05/11/2015 Nitrofurantoin Rash 05/11/2015 Phenazopyridine Rash 05/11/2015 documented as of this encounter (statuses as of 12/09/2023) Medications Medication Sig Dispensed Refills Start Date End Date Status losartan-hctz 100-25 mg per tab (HYZAAR) 100-25 MG per tabletIndications:HT N, goal below 150/90 Take 1 Tab by mouth daily. 30 Tab 5 12/17/2017 Active Diclofenac Sodium 1 % gelIndications:Strai n of lumbar region, initial encounter Place 2 g topically on the skin 4 times a day. 1 Tube 1 03/02/2018 Active RESTASIS 0.05 % ophthalmic emulsion PLACE ONE DROP IN EACH EYE TWICE DAILY 30 Each 11 08/10/2018 Active Propylene Glycol 0.6 % Ophthalmic Solution Instill 1 Drop into eye in the morning. 04/19/2018 Active BD LUER-DARRYL SYRINGE 25G X 5/8" 3 ML MISC Inject 1 Syringe under the skin Every Month. As directed. 0 09/30/2018 Active polyethylene glycol 3350 (MIRALAX) 255 gram powderIndications:Co nstipation, unspecified constipation type Take 17 g by mouth daily. Dissolve one heaping tablespoon in 8 ounces of water or juice. 1 Bottle 2 02/18/2019 Active EUTHYROX 25 MCG Tablet Take 1 Tablet by mouth in the morning. 06/29/2019 Active Premarin 0.625 MG/GM Vaginal Cream APPLY 0.5 GRAMS VAGINALLY TWICE A WEEK 42.5 g 4 04/02/2020 Active Calcium + D 500-1000-40 MG-UNT-MCG Oral Tablet Chewable (Calcium-Vitamin D-Vitamin K)Indications:Wrist fracture, closed, right, with delayed healing, subsequent encounter Take 1 Tab by mouth daily. 90 Tab 3 12/06/2020 Active Azelastine HCl 0.1 % Nasal SolutionIndications: Acute sinusitis, recurrence not specified, unspecified location SPRAY ONE SPRAY IN EACH NOSTRIL TWICE DAILY 30 mL 12 03/01/2021 Active Cyanocobalamin 1000 MCG Oral Tablet (Cyanocobalamin) Take 1 Tablet by mouth in the morning. 07/16/2021 Active Vitamin D (Cholecalciferol) 25 MCG (1000 UT) Oral Capsule Take by mouth . 07/16/2021 Active Zoster Vac Recomb Adjuvanted 50 MCG/0.5ML Intramuscular Suspension Reconstituted (Shingrix)Indication s:Need for vaccination for zoster Inject 0.5 mL into a large muscle now and repeat dose in 60 to 180 days 1 Each 1 07/16/2021 Active Rizatriptan Benzoate 10 MG Oral Tablet (Maxalt)Indications: Migraine without aura and without status migrainosus, not intractable Take 1 Tablet by mouth as needed for Migraine. at onset of headache, may repeat every 2 hours up to 2 times. Up to 3 tablets in 24 hours 20 Tablet 3 02/11/2022 Active Potassium Chloride ER 10 MEQ Oral Capsule Extended ReleaseIndications:H ypokalemia Take by mouth 1 Capsule in the morning. 90 Capsule 3 11/26/2022 Active Hydrocortisone (Perianal) 2.5 % External Cream (Procto-Med HC)Indications:Hemor rhoid Administer into the rectum 2 times a day. 28 g 5 12/31/2022 Active Atorvastatin Calcium 20 MG Oral Tablet (Lipitor)Indications :Elevated LDL cholesterol level Take 1 Tablet by mouth in the morning. 90 Tablet 3 01/14/2023 Active Benzonatate 100 MG Oral Capsule (Tessalon Perles) Take 1 Capsule by mouth 3 times a day as needed for Cough. Do not cut, crush, or chew. 50 Capsule 1 02/17/2023 Active Rinvoq 15 MG Oral Tablet Extended Release 24 Hour (Upadacitinib ER) Take by mouth daily. Active Fluticasone Propionate 50 MCG/ACT Nasal Suspension (Flonase) PLACE TWO SPRAYS IN EACH NOSTRIL DAILY 48 g 1 05/06/2023 Active Linzess 290 MCG Oral Capsule (linaCLOtide)Indicat ions:Chronic constipation TAKE ONE CAPSULE BY MOUTH BEFORE BREAKFAST 90 Capsule 1 05/12/2023 Active Montelukast Sodium 10 MG Oral Tablet (Singulair)Indicatio ns:Chronic maxillary sinusitis,Allergy to environmental factors Take 1 Tablet by mouth in the morning. 90 Tablet 3 07/01/2023 Active Sucralfate 1 GM Oral Tablet (Carafate)Indication s:Gastroesophageal reflux disease without esophagitis,Epigastr ic pain Take 1 Tablet by mouth 4 times a day before meals and at bedtime. half an hour before meals and at bedtime 360 Tablet 3 07/01/2023 Active amLODIPine Besylate 10 MG Oral Tablet (Norvasc)Indications :HTN, goal below 150/90 TAKE ONE TABLET BY MOUTH EVERY MORNING 90 Tablet 1 07/06/2023 Active Cetirizine HCl 10 MG Oral Tablet (ZyrTEC) TAKE ONE TABLET BY MOUTH EVERY MORNING 30 Tablet 5 08/06/2023 Active Metoprolol Succinate ER 25 MG Oral Tablet Extended Release 24 Hour (toPROL XL)Indications:HTN, goal below 150/90 TAKE ONE TABLET BY MOUTH EVERY MORNING 90 Tablet 2 10/06/2023 Active Topiramate 25 MG Oral Tablet (topAMAX)Indications :Migraine without aura and without status migrainosus, not intractable TAKE ONE TABLET BY MOUTH IN THE MORNING AND AT BEDTIME 60 Tablet 5 10/06/2023 Active Esomeprazole Magnesium 40 MG Oral Capsule Delayed ReleaseIndications:G astroesophageal reflux disease without esophagitis TAKE ONE CAPSULE BY MOUTH IN THE MORNING, ONE HOUR BEFORE THE FIRST MEAL OF THE DAY 90 Capsule 1 10/08/2023 Active Ozempic (0.25 or 0.5 MG/DOSE) 2 MG/3ML Solution Pen-injector (Semaglutide(0.25 or 0.5MG/DOS))Indicatio ns:Prediabetes,Obesi ty, Class I, BMI 30.0-34.9 (see actual BMI) Inject 0.5 mg under the skin once a week. 3 mL 1 10/27/2023 Active Albuterol Sulfate HFA 108 (90 Base) MCG/ACT Inhalation Aerosol SolutionIndications: History of pulmonary embolism Inhale 2 Puffs by mouth every 6 hours as needed for Shortness of Breath. 8.5 g 3 11/01/2023 Active Ondansetron HCl 8 MG Oral TabletIndications:Na usea and vomiting, unspecified vomiting type Take 1 Tablet by mouth every 12 hours as needed for Nausea. 20 Tablet 11/05/2023 Active Movantik 12.5 MG Oral Tablet (Naloxegol Oxalate) Take 1 Tablet by mouth in the morning. 11/24/2023 Active HYDROcodone-Acetamin ophen 5-325 MG Oral TabletIndications:Caron taylor degenerative disc disease Take 1 Tablet by mouth every 12 hours as needed for Pain, Mild. 60 Tablet 11/30/2023 Active Minoxidil 2.5 MG Oral Tablet (Loniten)Indications :Hair loss Take 0.5 Tablets by mouth in the morning. 45 Tablet 11/30/2023 Active Doxycycline Hyclate 100 MG Oral CapsuleIndications:A cute frontal sinusitis, recurrence not specified Take 1 Capsule by mouth in the morning and 1 Capsule before bedtime. Do all this for 7 days. Take for 7 days. 14 Capsule 12/08/2023 12/15/2023 Active documented as of this encounter (statuses as of 12/09/2023) Active Problems Problem Noted Date Diagnosed Date Nausea and/or vomiting 01/14/2023 Family history of carotid artery stenosis 2022 Controlled substance agreement signed 10/04/2021 Chest pain 01/23/2021 Multiple lipomas 12/06/2020 Wrist fracture, closed, righ t, with delayed healing, subsequent encounter 12/06/2020 Closed fracture of right upp er extremity with delayed healing 08/23/2020 Pure hypercholesterolemia 02/18/2019 Left thyroid nodule 01/22/2019 Overview: Last US 06/2020. Repeat in 2022. Lesion [...] as of this encounter (statuses as of 12/09/2023) Resolved Problems Problem Noted Date Diagnosed Date Resolved Date Prediabetes 09/17/2020 10/23/2022 Overview: Per Prediabetes protocol MEDICATION USE AGREEMENT 03/26/201701/2019 DM type 2 with diabetic peripheral neuropathy 06/20/19 17 02/20/2019 Intestinal adhesions with obstruction 05/11/2015 07/30/2017 Peripheral neuropathy 05/11/20152016 Type 2 diabetes mellitus wit h hemoglobin A1c goal of less than 7.0% 05/11/2015 02/20/2019 Overview: ICD-10 update of inactive term documented as of this encounter (statuses as of 12/09/2023) Immunizations Name Administration Dates Next Due COVID-19 [...] years and over) Not on file 07/28/2023 Sex and Gender Information Value Date Recorded Sex Assigned at Female 06/08/2018 5:03 PM EDT Gender Identity Female 06/08/2018 5:03 PM EDT Sexual Orientation Straight 06/08/2018 5: 03 PM EDT Job Start Date Occupation Industry Not on file Not on file Not on file documented as of this encounter Miscellaneous Notes * Telephone Encounter - Debbie Biswas CPhT - 12/09/2023 10:39 AM EDT Pt calling in to talk about side effects of Doxycycline Hyclate 100 MG Oral Capsule. Transferred torph. Thank you, Debbie Biswas Care Trainer [facility] 12/09/2023,10:40 AM documented in this encounter Plan of Treatment Upcoming Encounters Date Type Department Care Team (Late st Contact Info) Description 05/18/2024 10:30 AM EDT Imaging Radiology [address] [place] [address] 07/25/2024 9:00 AM EDT Office Visit Family Medicine [address] [phone] Tawana Mcgrath MD [address] [place] [address] [place] [address] Health Maintenance Due Date [...] filedocumented as of this encounter Care Teams Flue Gas Analyst Relationship Specialty Start Date End Date Tawana Mcgrath MD [address] [place] [address] [place] [phone] PCP - General Family Medicine 12/25/20 documented as of this encounter
--- OUTSIDE RECORDS SUMMARY | 2024-04-12 04:47 | External Medical Summary | Summary of Care ---
Author Name Unknown Organization [facility] Address [address] [facility] [place] [address] Phone [phone] Care Team Providers Care Prep Room Supervisor Name Role Phone Tawana Mcgrath MD Primary Care Prov ider Reason for Visit * Reason Onset Date Comments Side Effects of Medications 12/09/2023 Encounter Details Date Type Department Care Team (Late st Contact Info) Description 12/09/2023 Telephone Family Medicine [address] [place] [phone] Blayne Owusu MD [address] [place] [address] [place] [address] Side Effects of Medications [...] Active HYDROcodone-Acetamin ophen 5-325 MG Oral TabletIndications:Caron mbar degenerative disc disease Take 1 Tablet by [...] Capsule. Transferred torph. Thank you, Debbie Biswas Outside Laborer [facility] 12/09/2023,10:40 AM documented in this encounter Plan of Treatment Upcoming Encounters Date Type Department Care Team (Late st Contact Info) Description 05/18/2024 10:30 AM EDT Imaging Radiology [address] [place] [address] 07/25/2024 9:00 AM EDT Office Visit Family Medicine [address] [place] [phone] Tawana Mcgrath MD [address] [place] [address] [place] [address] Health Maintenance Due Date [...] Tdap) 07/08/2027 07/07/2017 Lipid Panel 11/23/2028 11/24/2023, 0909/2022, 07/16/2021, Additional history exists Colonoscopy 07/13/2033 07/14/2023, [...] filedocumented as of this encounter Care Teams Prep Room Supervisor Relationship Specialty Start Date End Date Tawana Mcgrath MD [address] [place] [address] [place] [phone] PCP - General Family Medicine 12/25/20 documented as of this encounter
--- OUTSIDE RECORDS SUMMARY | 2024-04-12 04:47 | External Medical Summary | Summary of Care ---
Author Name Unknown Organization [facility] Address [address] [facility] [place] [address] Phone [phone] Care Team Providers Care Imaging Services Director Name Role Phone Tawana Mcgrath MD Primary Care Prov ider Reason for Visit * Reason Onset Date Comments Side Effects of Medications 12/09/2023 Encounter Details Date Type Department Care Team (Late st Contact Info) Description 12/09/2023 Telephone Family Medicine [address] [place] [phone] Blayne Owusu MD [address] [place] [address] [place] [address] Side Effects of Medications [...] encounter Miscellaneous Notes * Addendum Note - Chencho Silva [facility] - 12/09/2023 10:56 AM EDTAddended by: CHENCHO SILVA on: 12/09/2023 10:56 AM Modules accepted: Orders * Telephone Encounter - Chencho Silva [facility] - 12/09/2023 10:46 AM EDT Patient [...] Clinical Pharmacy Services ([facility]) 12/09/23 10:53 AM [phone] * Telephone Encounter - Debbie Biswas CPhT - 12/09/2023 10:39 AM EDT Pt calling in to talk about side effects of Doxycycline Hyclate 100 MG Oral Capsule. Transferred torph. Thank you, Debbie Biswas Wireless Team Member [facility] 12/09/2023,10:40 AM documented in this encounter Plan of Treatment Upcoming Encounters Date Type Department Care Team (Late st Contact Info) Description 05/18/2024 10:30 AM EDT Imaging Radiology [address] [address] 07/25/2024 9:00 AM EDT Office Visit Family [address] [phone] Tawana Mcgrath MD [address] [place] [address] [place] [phone] Health Maintenance Due Date Last Done Comments [...] filedocumented as of this encounter Care Teams Imaging Services Director Relationship Specialty Start Date End Date Tawana Mcgrath MD [address] [place] [address] [place] [phone] PCP - General Family Medicine 12/25/20 documented as of this encounter
--- OUTSIDE RECORDS SUMMARY | 2024-04-12 04:47 | External Medical Summary | Summary of Care ---
Author Name Unknown Organization [facility] Address [address] [facility] [place] [address] Phone [phone] Care Team Providers Care Bicycle Designer Name Role Phone Tawana Mcgrath MD Primary Care Prov ider Reason for Visit * Reason Comments Acute Encounter Details Date Type Department Care Team (Late st Contact Info) Description 12/08/2023 9:20 AM EDT Office Visit Family Medicine [address] [place] [phone] Blayne Owusu MD [address] [place] [address] [place] Gar[place] [phone] Acute frontal sinusitis, recurrence not specified* Allergies Active Allergy Reactions Criticality Noted Date Comments Amoxicillin 05/11/2015 Nitrofurantoin Rash 05/11/2015 Phenazopyridine Rash 05/11/2015 documented as of this encounter (statuses as of 12/08/2023) Medications Medication Sig Dispensed Refills Start Date [...] as of this encounter (statuses as of 12/08/2023) Active Problems Problem Noted Date Diagnosed Date [...] as of this encounter (statuses as of 12/08/2023) Resolved Problems Problem Noted Date Diagnosed Date [...] as of this encounter (statuses as of 12/08/2023) Immunizations Name Administration Dates Next Due COVID-19 mRNA, LNP-s, No Pre serve, 2-Dose Series (Tauntr) 01/07/2021,03/19/2020,02/27/2020 Pneumococcal Conjugate Vacc, 13 Valent (Prevnar) [...] on file documented as of this encounter Last Filed Vital Signs Vital Sign Reading Time Taken Comments Blood Pressure 116/68 12/08/2023 9:34 AM EDT Pulse 64 12/08/2023 9:34 AM EDT Temperature 36.3 C (97.3 F) 12/08/2023 9:34 AM ED T Respiratory Rate - - Oxygen Saturation 95% 12/08/2023 9:34 AM EDT Inhaled Oxygen Concentration - - Weight 76.1 kg (167 lb 12.8 oz) 12/08/2023 9:34 AM EDT Height - - Body Mass Index 31.04 11/24/2023 1:08 PM EDT documented in this encounter Progress Notes * Blayne Owusu MD - 12/08/2023 9:41 AM EDT Subjective: HPI: Concepcion Sellers is a 73 year old female with hx of HTN, Hypothyroidism, Migraine, HLD, RA, hx of DVT/PE, DDD seen for For 1 week - sore throat, sinus pressure, congestion, post nasal drip and dry cough - trying OTC meds - symptoms got worsen last week - feel feverish - denied any SOB Patient Active Problem List Diagnosis Lumbar degenerative [...] 1 Drop into eye in the morning. polyethylene glycol 3350 (MIRALAX) 255 gram powder [...] tablets in 24 hours 20 Tablet 3 Potassium Chloride ER 10 MEQ Oral Capsule Extended Release Take by mouth 1 Capsule in the morning. 90 Capsule 3 Hydrocortisone (Perianal) 2.5 % External Cream [...] meals and at bedtime 360 Tablet 3 amLODIPine Besylate 10 MG Oral Tablet (Norvasc) TAKE ONE TABLET BY MOUTH EVERY MORNING 90 Tablet 1 Cetirizine HCl 10 MG Oral Tablet (ZyrTEC) TAKE ONE TABLET BY MOUTH EVERY MORNING 30 Tablet 5 Metoprolol Succinate ER 25 MG Oral Tablet [...] MEAL OF THE DAY 90 Capsule 1 Ozempic (0.25 or 0.5 MG/DOSE) 2 MG/3ML Solution Pen-injector (Semaglutide(0.25 or 0.5MG/DOS)) Inject 0.5 mg under the skin once a week. 3 mL 1 Albuterol Sulfate HFA 108 (90 Base) MCG/ACT Inhalation Aerosol Solution Inhale 2 Puffs by mouth every 6 hours as needed for Shortness of Breath. 8.5 g 3 Ondansetron HCl 8 MG Oral Tablet Take 1 Tablet by mouth every 12 hours as needed for Nausea. 20 Tablet 0 Movantik 12.5 MG Oral Tablet (Naloxegol Oxalate) Take 1 Tablet by mouth in the morning. HYDROcodone-Acetaminophen 5-325 MG Oral Tablet Take 1 Tablet by mouth every 12 hours as needed for Pain, Mild. 60 Tablet 0 Minoxidil 2.5 MG Oral Tablet (Loniten) Take 0.5 Tablets by mouth in the morning. 45 Tablet 0 Doxycycline Hyclate 100 MG Oral Capsule Take 1 Capsule by mouth in the morning and 1 Capsule beforebedtime. Do all this for 7 days. Take for 7 days. 14 Capsule 0 BD LUER-DARRYL SYRINGE 25G X 5/8" 3 ML MISC Inject 1 Syringe under the skin Every Month. As directed. 0 Zoster Vac Recomb Adjuvanted 50 MCG/0.5ML [...] performed by Tobi Hernandez MD at [facility] EGD, FLEXIBLE,W/ENDOSCOPIC US 07/27/2019 CBD stone, fatty liver, fatty pancreas / ESOPHAGOGASTRODUODENOSCOPY (EGD), FLEXIBLE, TRANSORAL, ULTRASONIC EXAM performed by Tobi Hernandez MD at [facility] EGD, W/ENDOSCOPIC US 04/24/2021 fatty liver / ESOPHAGOGASTRODUODENOSCOPY (EGD), FLEXIBLE, TRANSORAL, ENDOSCOPIC ULTRASOUND performed by Tobi Hernandez MD at [facility] ERCP, DIAGNOSTIC, SPECIMEN COLLECTION 07/27/2019 Biliary papillary stenosis / ENDOSCOPIC RETROGRADE CHOLANGIOPANCREATOGRAPHY (ERCP) DIAGNOSTIC performed by Tobi Hernandez MD at [facility] LUMBAR DISC ARTHROPLAST,REMV,ADDL INTERSPCE MAMMOGRAM BREAST NEEDLE [...] Review of patient's allergies indicates: Allergen Reactions Amoxicillin Macrobid [Nitrofurantoin] Rash Pyridium [Phenazopyridine] Rash Family [...] Vaping/E-Cigarette Devices ROS: -Per HPI OBJECTIVE: BP 116/68 | Pulse 64 | Temp 36.3 C (97.3 F) | Wt 76.1 kg (167 lb 12.8 oz) | SpO2 95% | BMI 31.04 kg/m | BSA 1.82 m PHYSICAL EXAM: Vitals are reviewed General:. NAD, well developed HEENT:. Fluids behind the Tms , no erythema Lungs:. CTA, no wheezing or crackles MSK:. Normal gait Psych:. AAOx3, normal affect ASSESSMENT/PLAN: Advised the pt to continue OTC cough meds and flonase Acute frontal sinusitis, recurrence not specified (Primary) - Doxycycline Hyclate 100 MG Oral Capsule; Take 1 Capsule by mouth in the morning and 1 Capsule before bedtime. Do all this for 7 days. Take for 7 days. Blayne Owusu MD Family medicine, [address] [address] documented in this encounter Nursing Notes * Sola Clark, [employer] FOUNDER AND PRESIDENT - 12/08/2023 9:31 AM EDT She thinks she has a sinus infection. Sick x 3 days. Sore throat, head ache, congestion. documented in this encounter Plan of Treatment Upcoming Encounters Date Type Department Care Team (Late st Contact Info) Description 05/18/2024 10:30 AM EDT Imaging Radiology [facility] [address] [facility] [place] [address] 07/25/2024 9:00 AM EDT Office Visit Family Medicine [address] [place] [phone] Tawana Mcgrath MD [address] [place] [address] [place] [phone] Health Maintenance Due Date Last Done Comments [...] as of this encounter Visit Diagnoses Diagnosis Acute frontal sinusitis, recurrence not specified- Primary documented in this encounter Care Teams Bicycle Designer Relationship Specialty Start Date End Date Tawana Mcgrath MD [address] [place] [address] [place] [phone] PCP - General Family Medicine 12/25/20 documented as of this encounter
--- OUTSIDE RECORDS SUMMARY | 2024-04-12 04:47 | External Medical Summary | Summary of Care ---
Author Name Unknown Organization [facility] Address [address] [facility] [place] [address] Phone [phone] Care Team Providers Care Accountancy Professor Name Role Phone Tawana Mcgrath MD Primary Care Prov ider Reason for Visit * Reason Onset Date Comments Side Effects of Medications 12/09/2023 Encounter Details Date Type Department Care Team (Late st Contact Info) Description 12/09/2023 Telephone Family Medicine [address] [place] [phone] Blayne Owusu MD [address] [place] [address] [place] [address] Side Effects of Medications [...] 7 days. 14 Capsule 12/08/2023 12/15/2023 Active Amoxicillin-Pot Clavulanate 875-125 MG Oral Tablet (Augmentin) Take 1 Tablet by mouth in the morning and 1 Tablet before bedtime. 14 Tablet 12/09/2023 Active documented as of this encounter (statuses [...] mRNA, LNP-s, No Pre serve, 2-Dose Series (Chattering Pixels) 01/07/2021,03/19/2020,02/27/2020 Pneumococcal Conjugate Vacc, 13 Valent (Prevnar) [...] encounter Miscellaneous Notes * Addendum Note - Blayne Owusu MD [...] [facility] ([facility]) 12/09/23 10:53 AM [phone] * Telephone Encounter - Debbie Biswas CPhT - 12/09/2023 10:39 AM EDT Pt calling in to talk about side effects of Doxycycline Hyclate 100 MG Oral Capsule. Transferred torph. Thank you, Debbie Biswas Barker Operator [facility] 12/09/2023,10:40 AM documented in this encounter Plan of Treatment Upcoming Encounters Date Type Department Care Team (Late st Contact Info) Description 05/18/2024 10:30 AM EDT Imaging Radiology [address] [place] [address] 07/25/2024 9:00 AM EDT Office Visit Family Medicine [address] [place] [phone] Tawana Mcgrath MD [address] [place] [address] [place] [address] Health Maintenance Due Date Last Done Comments [...] filedocumented as of this encounter Care Teams Accountancy Professor Relationship Specialty Start Date End Date Tawana Mcgrath MD [address] [place] [address] [place] [phone] PCP - General Family Medicine 12/25/20 documented as of this encounter
--- OUTSIDE RECORDS SUMMARY | 2024-04-12 04:48 | External Medical Summary ---
Author Name Unknown Address Unknown Organization [id number]:[facility] [place] [address] [place] [address] Laboratory Report Ordering Provider Test Date Status MEGAN DAVIDSONVIKYIMELDA 11/24/2023 13:38:54 Final Observation Date Value Abnormality Reference (Units ) Status WBC, Total 11/24/2023 13:38:54 6.70 4.00-10.8 0 (K/uL) Final RBC 11/24/2023 13:38:54 4.45 3.85-5.15 (M/uL) Final Hemoglobin 11/24/2023 13:38:54 14.5 12.0-15.3 (g/dL) Final Anemia reflex testing trigge rs on a HGB < 12.0 for Females and HGB < 13.0 for Males in accordance with the WHO Anemia Guidelines
Anemia reflex testing triggers on a HGB < 12.0 for Females and HGB < 13.0 for Males in accordance with the WHO Anemia Guidelines HCT 11/24/2023 13:38:54 44.8 36.0-45.2 (%) Final MCV 11/24/2023 13:38:54 100.7 81.5-97.5 (fL) Final MCH 11/24/2023 13:38:54 32.6 27.0-34.0 (pg) Final MCHC 11/24/2023 13:38:54 32.4 32.0-36.0 (g/dL) Final RDW 11/24/2023 13:38:54 14.7 11.5-15.5 (%) Final Platelets 11/24/2023 13:38:54 229 140-400 (K /uL) Final MPV 11/24/2023 13:38:54 11.1 6.6-11.1 ( fL) Final Nucleated erythrocytes/100 leukocytes [Ratio] in Blood by Automated count 11/24/2023 13:38:54 0 <=0 (/100 WBCs) Fi [facility] Performing Location [facility] - [address] [facility] [address]
--- OUTSIDE RECORDS SUMMARY | 2024-04-12 04:48 | External Medical Summary ---
Author Name Unknown Address Unknown Organization [id number]:[facility] - [address] [place] [address] Laboratory Report Ordering Provider Test Date Status MARCELA MORALES 11/24/2023 13:38:54 Final Observation Date Value Abnormality Reference (Units ) Status Magnesium 11/24/2023 13:38:54 2.1 1.5-2.6 (m g/dL) Final Performing Location [facility] - [address] [place] [id number]
--- OUTSIDE RECORDS SUMMARY | 2024-04-12 04:48 | External Medical Summary | Summary of Care ---
Author Name Unknown Organization [facility] Address [address] [facility] [place] [address] Phone [phone] Care Team Providers Care And Rescue Fire Fighter Crash Fire Name Role Phone Kelsea Ladd MD Primary Care Prov ider Reason for Visit * Reason Onset Date Comments Medication Refill 11/04/2023 Encounter Details Date Type Department Care Team (Late st Contact Info) Description 11/04/2023 Refill Family Medicine [address] [phone] Kelsea Ladd MD [address] [place] [address] [place] [address] Nausea and vomiting, unspecified vomiting type; Prediabetes; Obesity, Class I, BMI 30.0-34.9 (see actual BMI) Allergies Active Allergy Reactions Criticality Noted Date Comments Amoxicillin 05/11/2015 Nitrofurantoin Rash 05/11/2015 Phenazopyridine Rash 05/11/2015 documented as of this encounter (statuses as of 11/05/2023) Medications Medication Sig Dispensed Refills Start Date End Date Status losartan-hctz 100-25 mg per tab (HYZAAR) 100-25 MG per tabletIndications:H TN, goal below 150/90 Take 1 Tab by mouth daily. 30 Tab 5 12/17/2017 Active Diclofenac Sodium 1 % gelIndications:Stra in of lumbar region, initial encounter Place 2 [...] Active polyethylene glycol 3350 (MIRALAX) 255 gram powderIndications:C onstipation, unspecified constipation type Take 17 g by [...] 12/06/2020 Active Azelastine HCl 0.1 % Nasal SolutionIndications :Acute sinusitis, recurrence not specified, unspecified location SPRAY ONE SPRAY IN EACH NOSTRIL TWICE DAILY 30 mL 12 03/01/2021 Active Cyanocobalamin 1000 MCG Oral Tablet (Cyanocobalamin) Take 1 Tablet by mouth in the morning. 07/16/2021 Active Vitamin D (Cholecalciferol) 25 MCG (1000 UT) Oral Capsule Take by mouth . 07/16/2021 Active Zoster Vac Recomb Adjuvanted 50 MCG/0.5ML Intramuscular Suspension Reconstituted (Shingrix)Indicatio ns:Need for vaccination for zoster Inject 0.5 mL into a large muscle now and repeat dose in 60 to 180 days 1 Each 1 07/16/2021 Active Rizatriptan Benzoate 10 MG Oral Tablet (Maxalt)Indications :Migraine without aura and without status migrainosus, not intractable Take 1 Tablet by mouth as needed for Migraine. at onset of headache, may repeat every 2 hours up to 2 times. Up to 3 tablets in 24 hours 20 Tablet 3 02/11/2022 Active Potassium Chloride ER 10 MEQ Oral Capsule Extended ReleaseIndications: Hypokalemia Take by mouth 1 Capsule in the morning. 90 Capsule 3 11/26/2022 Active Hydrocortisone (Perianal) 2.5 % External Cream (Procto-Med HC)Indications:Hemo rrhoid Administer into the rectum 2 times a day. 28 g 5 12/31/2022 Active Atorvastatin Calcium 20 MG Oral Tablet (Lipitor)Indication s:Elevated LDL cholesterol level Take 1 Tablet by [...] 05/06/2023 Active Linzess 290 MCG Oral Capsule (linaCLOtide)Indica tions:Chronic constipation TAKE ONE CAPSULE BY MOUTH BEFORE BREAKFAST 90 Capsule 1 05/12/2023 Active Montelukast Sodium 10 MG Oral Tablet (Singulair)Indicati ons:Chronic maxillary sinusitis,Allergy to environmental factors Take 1 Tablet by mouth in the morning. 90 Tablet 3 07/01/2023 Active Sucralfate 1 GM Oral Tablet (Carafate)Indicatio ns:Gastroesophageal reflux disease without esophagitis,Epigast edel pain Take 1 Tablet by mouth 4 times a day before meals and at bedtime. half an hour before meals and at bedtime 360 Tablet 3 07/01/2023 Active amLODIPine Besylate 10 MG Oral Tablet (Norvasc)Indication s:HTN, goal below 150/90 TAKE ONE TABLET BY [...] 10/06/2023 Active Topiramate 25 MG Oral Tablet (topAMAX)Indication s:Migraine without aura and without status migrainosus, not intractable TAKE ONE TABLET BY MOUTH IN THE MORNING AND AT BEDTIME 60 Tablet 5 10/06/2023 Active Esomeprazole Magnesium 40 MG Oral Capsule Delayed ReleaseIndications: Gastroesophageal reflux disease without esophagitis TAKE ONE CAPSULE BY MOUTH IN THE MORNING, ONE HOUR BEFORE THE FIRST MEAL OF THE DAY 90 Capsule 1 10/08/2023 Active Ozempic (0.25 or 0.5 MG/DOSE) 2 MG/3ML Solution Pen-injector (Semaglutide(0.25 or 0.5MG/DOS))Indicati ons:Prediabetes,Obe sity, Class I, BMI 30.0-34.9 (see actual BMI) Inject 0.5 mg under the skin once a week. 3 mL 1 10/27/2023 Active HYDROcodone-Acetami nophen 5-325 MG Oral TabletIndications:L umbar degenerative disc disease Take 1 Tablet by mouth every 12 hours as needed for Pain, Mild. 60 Tablet 10/28/2023 Active Albuterol Sulfate HFA 108 (90 Base) MCG/ACT Inhalation Aerosol SolutionIndications :History of pulmonary embolism Inhale 2 Puffs by mouth every 6 hours as needed for Shortness of Breath. 8.5 g 3 11/01/2023 Active Ondansetron HCl 8 MG Oral TabletIndications:N ausea and vomiting, unspecified vomiting type Take 1 Tablet by mouth every 12 hours as needed for Nausea. 20 Tablet 11/05/2023 Active Ondansetron HCl 8 MG Oral TabletIndications:N ausea and vomiting, unspecified vomiting type Take 1 Tablet by mouth every 12 hours as needed for Nausea. 20 Tablet 07/01/2023 Discontinue d(Refill) documented as of this encounter (statuses as of 11/05/2023) Active Problems Problem Noted Date Diagnosed Date [...] as of this encounter (statuses as of 11/05/2023) Resolved Problems Problem Noted Date Diagnosed Date [...] as of this encounter (statuses as of 11/05/2023) Immunizations Name Administration Dates Next Due COVID-19 mRNA, LNP-s, No Pre serve, 2-Dose Series ([employer]) 01/07/2021,03/19/2020,02/27/2020 Pneumococcal Conjugate Vacc, 13 Valent (Prevnar) 11/13/2016 Pneumococcal Polysaccharide PPV23 (Pneumovax) 03/20/2015 Season Influenza, Quad, PF, Adjuvanted, 65+ Yrs, IM (FLUAD) 02/06/2020 Seasonal Influenza, PF, 6 M & above, IM , (FluLaval or Fluzone) 12/03/2017,11/13/2016 Seasonal Influenza, Quadriva lent Hd (Fluzone Hd) 04/22/2023,01/15/2022,12/06/2020 Seasonal Influenza, Quadriva lent, No Preserve, IM 11/17/2014 Seasonal Influenza, Quadriva lent,with Preserve, 3 yr & above, IM 02/07/2016 Seasonal Influenza, Trivalen t, (IIV3), with Preserv, (Fluzone) 11/17/2014 Seasonal Influenza, Trivalen t, Adjuvanted, 65+ YRS, [...] encounter Miscellaneous Notes * Telephone Encounter - Preeti Soria RPh - 11/05/2023 2:23 PM EDTSigned Prescriptions: Disp Refills Ondansetron HCl 8 MG Oral Tablet 20 Tab*0 Sig: Take 1 Tablet by mouth every 12 hours as needed for Nausea.Authorizing Provider: KELSEA LADD User: Harinder SORIA Prescriptions: Disp Refills Ozempic (0.25 or 0.5 MG/DOSE) 2 MG/3ML Heather*3 mL 1 Refused By: ZAY SORIAeason for Refusal:Too soon documented in this encounter Plan of Treatment Upcoming Encounters Date Type Department Care Team (Late st Contact Info) Description 11/23/2023 9:00 AM EDT Office Visit Family Medicine [address] [place] [phone] Kelsea Ladd MD [address] [place] [address] [place] [id number] 05/18/2024 10:30 AM EDT Imaging Radiology [address] [id number] Health Maintenance Due Date Last Done Comments Cologuard 1995 Fecal Occult Blood Test 1995 Sigmoidoscopy 1995 Zoster Vaccines (1 of 2) 02/23/2000 Adult Wellness Visit 02/23/2016 Depression Screening 06/13/2021 06/13/2020 COVID-19 Vaccine ( season) 2023 01/07/2021, 03/19/2020, 02/27/2020 Influenza Vaccine (FLU shot) (#1) 2023 04/22/2023, 01/15/2022, 12/06/2020, Additional history exists Mammogram 05/17/2024 05/18/2023, 0 08/2022, 02/14/2021, Additional history exists TSH 06/24/2024 06/25/2023, 0 09/2022, 07/16/2021, Additional history exists DXA Scan 07/08/2024 07/08/2017 GFR 07/16/2024 07/17/2023, 0 09/2022, 01/15/2022, Additional history exists Albumin/Creatinine Ratio 10/17/2025 023, 01/15/2022, 02/18/2019, Additional history exists DTap/Tdap Vaccines (2 - Td or Tdap) 07/08/2027 07/07/2017 Lipid Panel 10/18/2027 10/17/2022, 08/2021, 08/23/2020, Additional history exists Colonoscopy 07/13/2033 07/14/2023, 09/06/2013 Colorectal Cancer Screening 07/13/2033 Pneumococcal Vaccine: 65+ Years Completed 11/13/2016, 03/20/2015 HPV (Gardasil) Vaccine Aged Out No lo [...] as of this encounter Visit Diagnoses Diagnosis Nausea and vomiting, unspecified vomiting type Prediabetes Other abnormal glucose Obesity, Class I, BMI 30.0-34.9 (see actual BMI) Obesity, unspecified documented in this encounter Care Teams And Rescue Fire Fighter Crash Fire Relationship Specialty Start Date End Date Kelsea Ladd MD [address] [place] [address] [place] [phone] PCP - General Family Medicine 12/25/20 documented as of this encounter
--- OUTSIDE RECORDS SUMMARY | 2024-04-12 04:48 | External Medical Summary | Summary of Care ---
Author Name Unknown Organization [facility] Address [address] [facility] [place] [address] Phone [phone] Care Team Providers Care Solvent Station Attendant Name Role Phone Tawana Mcgrath MD Primary Care Prov ider Reason for Visit * Reason Onset Date Comments Order Request 11/24/2023 THYROID US Encounter Details Date Type Department Care Team (Late st Contact Info) Description 11/24/2023 Telephone Family Medicine [address] [place] [phone] Patricia Roche PA-C [address] [place] [address] [place] [phone] Order Request (THYROID US) Allergies Active Allergy Reactions Criticality Noted Date Comments Amoxicillin 05/11/2015 Nitrofurantoin Rash 05/11/2015 Phenazopyridine Rash 05/11/2015 documented as of this encounter (statuses as of 11/24/2023) Medications Medication Sig Dispensed Refills Start Date [...] a week. 3 mL 1 10/27/2023 Active HYDROcodone-Acetamin ophen 5-325 MG Oral TabletIndications:Caron [...] by mouth in the morning. 11/24/2023 Active documented as of this encounter (statuses as of 11/24/2023) Active Problems Problem Noted Date Diagnosed Date [...] as of this encounter (statuses as of 11/24/2023) Resolved Problems Problem Noted Date Diagnosed Date [...] as of this encounter (statuses as of 11/24/2023) Immunizations Name Administration Dates Next Due COVID-19 mRNA, LNP-s, No Pre serve, 2-Dose Series ([employer] Now) 01/07/2021,03/19/2020,02/27/2020 Pneumococcal Conjugate Vacc, 13 Valent (Prevnar) [...] encounter Miscellaneous Notes * Telephone Encounter - Dominik Hope OSA - 11/24/2023 3:59 PM EDT I spoke to pt. She is scheduled and aware. * Telephone Encounter - Patricia Roche PA-C - 11/24/2023 3:38 PM EDT Us ordered. * Telephone Encounter - Dominik Hope OSA - 11/24/2023 1:45 PM EDT Pt stated at check out that she was to have a Thyroid US scheduled. I don't see an order for her. Please advise and I can call pt to scheduled. documented in this encounter Plan of Treatment Upcoming Encounters Date Type Department Care Team (Late st Contact Info) Description 12/01/2023 10:30 AM EDT Imaging Radiology [address] [place] [id number] 05/18/2024 10:30 AM EDT Imaging Radiology [facility] [address] [place] [address] 07/25/2024 9:00 AM EDT Office Visit Family Medicine [address] [place] [phone] Tawana Mcgrath MD [address] [place] [address] [place] [phone] Scheduled Orders Name Type Priority Associated Diagnoses Orde r Schedule US HEAD AND NECK Medical Imaging Routine Thyroid nodule Expected: 12/01/2023, Expires: 12/24/2024 Health Maintenance Due Date Last Done Comments Cologuard 1995 Fecal Occult Blood Test 1995 Sigmoidoscopy 1995 Zoster Vaccines (1 of 2) 02/23/2000 Adult Wellness Visit 02/23/2016 Depression Screening 06/13/2021 06/13/2020 COVID-19 Vaccine ( season) 2023 01/07/2021, 03/19/2020, 02/27/2020 Mammogram 05/17/2024 05/18/2023, 0 08/2022, 02/14/2021, Additional history exists TSH 06/24/2024 06/25/2023, 090 09/2022, 07/16/2021, Additional history exists DXA [...] as of this encounter Visit Diagnoses Diagnosis Thyroid nodule- Primary Nontoxic uninodular goiter documented in this encounter Care Teams Solvent Station Attendant Relationship Specialty Start Date End Date Tawana Mcgrath MD [address] [place] [address] [place] [phone] PCP - General Family Medicine 12/25/20 documented as of this encounter
--- OUTSIDE RECORDS SUMMARY | 2024-04-12 04:48 | External Medical Summary | Summary of Care ---
Author Name Unknown Organization [facility] Address [address] [facility] [place] [address] Phone [phone] Care Team Providers Care Automatic Dispenser Mechanic Name Role Phone Tawana Mcgrath MD Primary Care Prov ider Reason for Visit * Reason Onset Date Comments eRx-Medication Refill Returning Call 11/16/2023 Encounter Details Date Type Department Care Team (Late st Contact Info) Description 11/16/2023 Refill Family Medicine [address] [place] [phone] Blayne Owusu MD [address] [place] [address] [place] [address] Wheezing Allergies Active Allergy Reactions Criticality Noted Date Comments Amoxicillin 05/11/2015 Nitrofurantoin Rash 05/11/2015 Phenazopyridine Rash 05/11/2015 documented as of this encounter (statuses as of 11/18/2023) Medications Medication Sig Dispensed Refills Start Date [...] needed for Nausea. 20 Tablet 11/05/2023 Active documented as of this encounter (statuses as of 11/18/2023) Active Problems Problem Noted Date Diagnosed Date [...] as of this encounter (statuses as of 11/18/2023) Resolved Problems Problem Noted Date Diagnosed Date [...] as of this encounter (statuses as of 11/18/2023) Immunizations Name Administration Dates Next Due COVID-19 mRNA, LNP-s, No Pre serve, 2-Dose Series (Pfizer) 01/07/2021,03/19/2020,02/27/2020 Pneumococcal Conjugate Vacc, 13 Valent (Prevnar) 11/13/2016 Pneumococcal Polysaccharide PPV23 (Pneumovax) 03/20/2015 Season Influenza, Quad, PF, Adjuvanted, 65+ Yrs, IM (FLUAD) 02/06/2020 Seasonal Influenza Vac., MDV , IM, 0.5 mL (Fluzone) 11/17/2014 Seasonal Influenza, PF, 6 M & above, [...] Telephone Encounter - China Aguiar RN - 11/18/2023 1:21 PM EDTRefused Prescriptions: Disp Refills Amoxicillin-Pot Clavulanate 875-125 MG Ora*14 Tab*0 Sig: Take 1Tablet by mouth in the morning and 1 Tablet before bedtime. Do all this for 7 days.Refused By: CHINA AGUIAR MReason for Refusal: Course of treatment complete * Telephone Encounter - China Aguiar RN - 11/18/2023 1:21 PM EDTPending Prescriptions: Disp Refills Amoxicillin-Pot Clavulanate 875-125 MG Ora*14 Tab*0 Sig: Take 1 Tablet by mouth in the morning and 1 Tablet before bedtime. Do all this for 7 days. * Telephone Encounter - Tammy Bueno CPhT - 11/17/2023 4:24 PM EDT Pt's returning a call. I relayed the message from another note regarding the request for Amoxicillin-Pot Clavulanate 875-125 MG Oral Tablet (Augmentin). Pt states she does not need this medication she did not request it. It looks like her pharmacy sent the request but she does not need it. Please cancel request. Thank you, Mera Bueno CPhT [facility] [employer] [address] [place] [address] [phone] * Telephone Encounter - Sola Clark CMA - 11/17/2023 4:00 PM EDT I called patient to find out why she is requesting a refill of this. Is she sick? Does she need an appointment? Left message to call [phone] Pending Prescriptions: Disp Refills Amoxicillin-Pot Clavulanate 875-125 MG Or*14 Tab*0 Sig: Take 1 Tablet by mouth in the morning and 1 Tablet before bedtime. Do all this for 7 days. Last Visit: 08/28/2023 (in office), Visit date not found (telemedicine) Next Visit: 11/23/2023 Last date the medication was ordered: 02/12/2023 Patient Active Problem List Diagnosis Lumbar degenerative [...] Results Component Value Date/Time CREATININE - [facility] 0.95 07/17/2023 12:00 AM CREATININE - [facility] 1.0 02/14/2020 10:55 AM CREATININE TRENT 154 02/06/2020 11:57 AM CREATININE TRENT - [facility] 166 01/15/2022 12:06 PM CREATININE, RANDOM URINE - [facility] 138 10/17/2022 12:49 PM CREATININE, RANDOM URINE - [facility] 169 02/18/2019 01:53 PM Lab Results Component Value Date/Time POTASSIUM - [facility] 3.4 (A) 07/17/2023 12:00 AM POTASSIUM - [facility] 3.8 02/14/2020 10:55 AM Lab Results Component Value Date/Time TSH - [facility] 0.77 10/17/2022 10:57 AM TSH - [facility] 0.27 02/14/2020 10:55 AM TSH - [facility]SIDE LAB 0.270 09/11/2016 12:00 AM TSH W/REFLEX TO FT4-QUEST H 0.353 (A) 06/25/2023 12:00 AM Lab Results Component Value Date/Time LDL CHOLESTEROL (CALCULATED) - [facility] 58 10/17/2022 10:57 AM LDL CHOLESTEROL (CALCULATED) - [facility] 72 07/16/2021 11:48 AM LDL CHOLESTEROL (CALCULATED) - [facility] 54 [...] Results Component Value Date/Time ALT - [facility] 21 07/16/2021 11:48 AM ALT - [facility] 28 02/06/2020 11:49 AM Hemoglobin AIC Results: Lab Results Component Value Date/Time HEMOGLOBIN A1C - [facility] 5.5 10/17/2022 10:57 AM HEMOGLOBIN A1C - [facility] 6.0 (H) 07/16/2021 11:48 AM HEMOGLOBIN A1C - [facility] 5.7 (H) 08/23/2020 12:07 PM HEMOGLOBIN A1C - [facility] 5.6 02/06/2020 11:49 AM HEMOGLOBIN A1C - [facility] 5.3 02/18/2019 01:53 PM HEMOGLOBIN A1C - [facility] 5.7 (H) 10/18/2018 03:36 PM * Telephone Encounter - Osmel Posadas - 11/16/2023 7:17 PM EDTPending Prescriptions: Disp Refills Amoxicillin-Pot Clavulanate 875-125 MG Ora*14 Tab*0 Sig: Take 1Tablet by mouth in the morning and 1 Tablet before bedtime. Do all this for 7 days. documented in this encounter Plan of Treatment Upcoming Encounters Date Type Department Care Team (Late st Contact Info) Description 11/23/2023 9:00 AM EDT Office Visit Family Medicine [address] [phone] Tawana Mcgrath MD [address] [place] [address] [place] [address] 05/18/2024 10:30 AM EDT Imaging Radiology [address], [place] [address] [facility] [place] [address] Health Maintenance Due Date Last Done Comments Cologuard 1995 Fecal Occult Blood Test 1995 Sigmoidoscopy 1995 Zoster Vaccines (1 of 2) 02/23/2000 Adult Wellness Visit 02/23/2016 Depression Screening 06/13/2021 06/13/2020 COVID-19 Vaccine ( season) 2023 01/07/2021, 03/19/2020, 02/27/2020 Influenza Vaccine (FLU shot) (#1) 2023 04/22/2023, 01/15/2022, 12/06/2020, Additional history exists Mammogram 05/17/2024 05/18/2023, 04/0 08/2022, 02/14/2021, Additional history exists TSH 06/24/2024 06/25/2023, 09/0 09/2022, 07/16/2021, Additional history exists DXA Scan 07/08/2024 07/08/2017 GFR 07/16/2024 07/17/2023, 09/0 09/2022, 01/15/2022, Additional history exists Albumin/Creatinine Ratio 10/17/2025 023, 01/15/2022, 02/18/2019, Additional history exists DTap/Tdap Vaccines (2 - Td or Tdap) 07/08/2027 07/07/2017 Lipid Panel 10/18/2027 10/17/2022, 06/0 08/2021, 08/23/2020, Additional history exists Colonoscopy 07/13/2033 [...] as of this encounter Visit Diagnoses Diagnosis Wheezing documented in this encounter Care Teams Automatic Dispenser Mechanic Relationship Specialty Start Date End Date Tawana Mcgrath MD [address] [place] [address] [place] [id number] PCP - General Family Medicine 12/25/20 documented as of this encounter
--- OUTSIDE RECORDS SUMMARY | 2024-04-12 04:48 | External Medical Summary | Summary of Care ---
Author Name Unknown Organization [facility] Address [address] [place] [address] Phone [phone] Care Team Providers Care Mosaic Worker Name Role Phone Tawana Mcgrath MD Primary Care Prov ider Reason for Visit * Reason Onset Date Comments Re-Check Medication Administration 11/24/2023 Flu an d/or Pneumo Inj Encounter Details Date Type Department Care Team (Latest Contact Info) Description 11/24/2023 1:20 PM EDT Office Visit Family Medicine [address] [phone] Patricia Roche PA-C [address] [place] [address] [place] [phone] HTN, goal below 150/90*; Need for prophylactic vaccination and inoculation against influenza; Rheumatoid arthritis with negative rheumatoid factor, involving unspecified site (HCC); Gastroesophageal reflux disease without esophagitis; History of pulmonary embolism; Hypothyroidism due to acquired atrophy of thyroid; Degeneration of intervertebral disc of lumbar region, unspecified whether pain present; Migraine without aura and without status migrainosus, not intractable; Plantar fasciitis Allergies Active Allergy Reactions Criticality Noted Date [...] Sign Reading Time Taken Comments Blood Pressure 118/62 11/24/2023 1:08 PM EDT Pulse 70 11/24/2023 1:08 PM EDT Temperature 36.4 C (97.6 F) 11/24/2023 1:08 PM ED T Respiratory Rate 16 11/24/2023 1:08 PM EDT Oxygen Saturation 96% 11/24/2023 1:08 PM EDT Inhaled Oxygen Concentration - - Weight 75.8 kg (167 lb) 11/24/2023 1:08 PM EDT Height 156.6 cm (5' 1.65") 11/24/2023 1:08 PM ED T Body Mass Index 30.89 11/24/2023 1:08 PM EDT documented in this encounter Progress Notes * Patricia Roche PA-C - 11/24/2023 1:19 PM EDT Nursing Notes: China Aguiar, RN 11/24/23 1318 Sign at exiting of workspace 6 mo check up( Dr Espinoza pt) getting a lot of red pina on arms and legs. She has had several falls recently. Pt has a cane , but is not using it today. Pt is currently doing Physical therapy of left shoulder and neck Has had her heel spurs injected recently by Podiatry Pt here today for recheck. Pt with PMH of HTN, hypothyroid, lumbar DDD, HTN, GERD, hx of PE, migraines, RA. Pt is currently in PT for her neck and shoulder. She does have a cane but isn't using it today. Shehas had some falls recently, when she wasn't using her cane. Pt also recently had her heel spurs injected. She would like some labs. Her hair doesn't grow very well. Review of patient's allergies indicates: Allergen Reactions Amoxicillin Macrobid [Nitrofurantoin] Rash Pyridium [Phenazopyridine] Rash Current Outpatient Medications Medication Sig Dispense Refill [...] UT) Oral Capsule Take by mouth . Zoster Vac Recomb Adjuvanted 50 MCG/0.5ML Intramuscular Suspension Reconstituted (Shingrix) Inject 0.5 mL into a large muscle now and repeat dose in 60 to 180 days 1 Each 1 Rizatriptan Benzoate 10 MG Oral Tablet (Maxalt) [...] skin once a week. 3 mL 1 HYDROcodone-Acetaminophen 5-325 MG Oral Tablet Take 1 Tablet by mouth every 12 hours as needed for Pain, Mild. 60 Tablet 0 Albuterol Sulfate HFA 108 (90 Base) MCG/ACT Inhalation Aerosol Solution Inhale 2 Puffs by mouth every 6 hours as needed for Shortness of Breath. 8.5 g 3 Ondansetron HCl 8 MG Oral Tablet Take 1 Tablet by mouth every 12 hours as needed for Nausea. 20 Tablet 0 Movantik 12.5 MG Oral Tablet (Naloxegol Oxalate) Take 1 Tablet by mouth in the morning. No current facility-administered medications for this visit. Past Medical History: Diagnosis Date Hypothyroidism due to acquired atrophy of thyroid 05/11/2015 Intestinal adhesions with obstruction (HCC) 05/11/2015 Left leg DVT (HCC) 05/11/2015 Lumbar degenerative disc disease 05/11/2015 Need for hepatitis C screening test 11/12/15 negative Peripheral neuropathy 05/11/2015 Plantar fasciitis 05/11/2015 Pulmonary embolism and infarction (HCC) 05/11/2015 Social History Socioeconomic History Marital status: Spouse name: Not on file Number of children: Not on file Years of education: Not on file Highest education level: Not on file Occupational History Not on file Tobacco Use Smoking status: Former Smokeless tobacco: Never Tobacco comments: smoked a couple times as teenager Vaping Use Vaping status: Never Used Substance and Sexual Activity Alcohol use: Never Drug use: No Sexual activity: Yes Partners: Male Other Topics Concern Not on file Social History Narrative Not on file Social Determinants of Health Financial Resource Strain: Not on file Food Insecurity: No Food Insecurity (12/30/2018) Hunger Vital Sign Worried About Running Out of Food in the Last Year: Never true Ran Out of Food in the Last Year: Never true Transportation Needs: Not on file Social Connections: Unknown (07/28/2023) Social Connections How often do you feel lonely or isolated from those around you? (Adult - for ages 18 years and over): Not on file Housing Stability: Not on file O:Blood pressure 118/62, pulse 70, temperature 36.4 C (97.6 F), resp. rate 16, height 1.566 m (5' 1.65"), weight 75.8 kg (167 lb), SpO2 96%. GENERAL: alert, healthy, and no distress NECK: supple, no adenopathy, no bruits, thyroid normal size, non-tender, without nodularity EYES: PERRLA, conjunctiva are pink and non-injected, sclera clear EARS: External ears normal, Canals clear, TM's Normal NOSE: no mucosal erythema, no mucosal edema, no purulent discharge OROPHARYNX: no exudate, no erythema, lips, buccal mucosa, and tongue normal, and mucous membranes are moist HEART: regular rate & rhythm, no murmur, and no gallops LUNGS: chest symmetric with normal AP diameter, no chest deformities noted, no chest wall tenderness, lungs clear to auscultation ABDOMEN: abdomen soft, non-tender, normal bowel sounds, and no masses or organomegaly EXTREMITIES: no edema A:HTN, goal below 150/90 (Primary) - CBC WITH WBC DIFFERENTIAL AND ANEMIA REFLEX WORKUP; Future; Expected date: 11/24/2023 - COMPREHENSIVE METABOLIC PANEL; Future; Expected date: 11/24/2023 Need for prophylactic vaccination and inoculation against influenza - INFLUENZA VAC., TRIVALENT, HD, PF, 65 AND ABOVE, 0.5 ML IM (FLUZONE HD) Rheumatoid arthritis with negative rheumatoid factor, involving unspecified site (HCC) Gastroesophageal reflux disease without esophagitis History of pulmonary embolism Hypothyroidism due to acquired atrophy of thyroid - TSH WITH FREE T4 IF INDICATED; Future; Expected date: 11/24/2023 Degeneration of intervertebral disc of lumbar region, unspecified whether pain present Migraine without aura and without status migrainosus, not intractable Plantar fasciitis Will check some labs. Any questions/problems, please call. If anything changes, worsens, develops new sx, please call [facility]. Follow-up: Return if symptoms worsen or fail to improve. | Check-out note: Schedule with Tawana in6-8 mo Patricia Roche PA-C * China Aguiar RN - 11/24/2023 1:18 PM EDT PRE - ADMINISTRATION DOCUMENTATION Are you experiencing any cold symptoms or fever? No Have you had Guillain-[place] Syndrome (an illness that causes paralysis) within the last 6 weeks? No Have you had the flu shot in the past? YES Have you ever had a reaction to the flu shot? No China Aguiar RN, 11/24/2023 1:18 PM Immunization Administration Documentation Time Out Procedure Performed: Yes Patient Identified (Ask Name/Date of ): Yes Does the patient have a fever greater than 101 degrees today? No Patient allergic to latex? No VFC Stock: No Immunization(s) verified: Yes, Immunization Name: Flu, VIS Sheet(s) given: Yes Verified Side and Site: Yes Verified Shot(s) with Parent(s)/Patient: Yes documented in this encounter Nursing Notes * China Aguiar RN - 11/24/2023 1:13 PM EDT 6 mo check up( Dr Jesus-Hawkins pt) getting a lot of red pina on arms and legs. She has had several falls recently. Pt has a cane , but is not using it today. Pt is currently doing Physical therapy of left shoulder and neck Has had her heel spurs injected recently by Podiatry documented in this encounter Plan of Treatment Upcoming Encounters Date Type Department Care Team (Late st Contact Info) Description 11/24/2023 2:00 PM EDT Laboratory Laboratory [address] [place] [phone] [facility] [address] [place] [address] Encounter for long-term (current) use of medications; HTN, goal below 150/90; Pure hypercholesterolemia; Hypothyroidism due to acquired atrophy of thyroid 05/18/2024 10:30 AM EDT Imaging Radiology [address] [place] [address] 07/25/2024 9:00 AM EDT Office Visit Family Medicine [address] [place] [phone] Tawana Mcgrath MD [address] [place] [address] [place] [phone] Pending Results Name Type Priority Associated Diagnoses Date /Time CBC WITH WBC DIFFERENTIAL AND ANEMIA REFLEX WORKUP Lab Routine HTN, goal below 150/90 11/24/2023 1:38 PM EDT Scheduled Orders Name Type Priority Associated Diagnoses Orde r Schedule CBC WITH WBC DIFFERENTIAL AND ANEMIA REFLEX WORKUP Lab Routine HTN, goal below 150/90 Expected: 11/24/2023 (Approximate), Expires: 11/23/2024 Health Maintenance Due Date Last Done Comments Cologuard 1995 Fecal Occult Blood Test 1995 Sigmoidoscopy 1995 Zoster Vaccines (1 of 2) 02/23/2000 Adult Wellness Visit 02/23/2016 Depression Screening 06/13/2021 06/13/2020 COVID-19 Vaccine ( season) 2023 01/07/2021, 03/19/2020, 02/27/2020 Mammogram 05/17/2024 05/18/2023, 0 08/2022, 02/14/2021, Additional history exists TSH 06/24/2024 06/25/2023, 09/0 09/2022, 07/16/2021, Additional history exists DXA Scan 07/08/2024 07/08/2017 GFR 07/16/2024 07/17/2023, 090 09/2022, 01/15/2022, Additional history exists Albumin/Creatinine Ratio 10/17/2025 023, 01/15/2022, 02/18/2019, Additional history exists DTap/Tdap Vaccines (2 - Td or Tdap) 07/08/2027 07/07/2017 Lipid Panel 10/18/2027 10/17/2022, 0 08/2021, 08/23/2020, Additional history exists Colonoscopy 07/13/2033 [...] encounter Visit Diagnoses Diagnosis HTN, goal below 150/90- Primary Need for prophylactic vaccination and inoculation against influenza Rheumatoid arthritis with negative rheumatoid factor, involving unspecified site (HCC) Gastroesophageal reflux disease without esophagitis Esophageal reflux History of pulmonary embolism Personal history of pulmonary embolism Hypothyroidism due to acquired atrophy of thyroid Degeneration of intervertebral disc of lumbar region, unspecified whether pain present Migraine without aura and without status migrainosus, not intractable Migraine without aura, without mention of intractable migraine without mention of status migrainosus Plantar fasciitis Plantar fascial fibromatosis Encounter for long-term (current) use of medications Encounter for long-term (current) use of other medications HTN, goal below 150/90 Pure hypercholesterolemia Hypothyroidism due to acquired atrophy of thyroid documented in this encounter Care Teams Mosaic Worker Relationship Specialty Start Date End Date Tawana Mcgrath MD [address] [place] [address] [place] [phone] PCP - General Family Medicine 12/25/20 documented as of this encounter
--- OUTSIDE RECORDS SUMMARY | 2024-04-12 04:48 | External Medical Summary | Summary of Care ---
Author Name Unknown Organization [facility] Address [address] [facility] [place] [address] Phone [phone] Care Team Providers Care Heel Seat Fitter Name Role Phone Kelsea Ladd MD Primary Care Prov ider Reason for Visit * Reason Comments eRx-Medication Refill Encounter Details Date Type Department Care Team (Late st Contact Info) Description 10/26/2023 Refill Family Medicine [address] [phone] Kelsea Ladd MD [address] [place] [address] [place] [phone] Prediabetes; Obesity, Class I, BMI 30.0-34.9 (see actual BMI) Allergies Active Allergy Reactions Criticality Noted Date Comments Amoxicillin 05/11/2015 Nitrofurantoin Rash 05/11/2015 Phenazopyridine Rash 05/11/2015 documented as of this encounter (statuses as of 10/29/2023) Medications Medication Sig Dispensed Refills Start Date [...] 24 hours 20 Tablet 3 3 Active Potassium Chloride ER 10 MEQ Oral Capsule Extended ReleaseIndication s:Hypokalemia Take by mouth 1 Capsule in the morning. 90 Capsule 3 3 Active Hydrocortisone (Perianal) 2.5 % [...] at bedtime 360 Tablet 3 4 Active Ondansetron HCl 8 MG Oral TabletIndications :Nausea and vomiting, unspecified vomiting type Take 1 Tablet by mouth every 12 hours as needed for Nausea. 20 Tablet 4 Active amLODIPine Besylate 10 MG Oral Tablet (Norvasc)Indicati ons:HTN, goal below 150/90 TAKE ONE TABLET BY MOUTH EVERY MORNING 90 Tablet 1 4 Active Albuterol Sulfate HFA 108 (90 Base) MCG/ACT Inhalation Aerosol SolutionIndicatio ns:History of pulmonary embolism Inhale 2 Puffs by mouth every 6 hours as needed for Shortness of Breath. 8.5 g 3 4 Active Cetirizine HCl 10 MG Oral Tablet (ZyrTEC) TAKE ONE TABLET BY MOUTH EVERY MORNING 30 Tablet 5 4 Active Metoprolol Succinate ER 25 MG [...] THE DAY 90 Capsule 1 4 Active Ozempic (0.25 or 0.5 MG/DOSE) 2 MG/3ML Solution Pen-injector (Semaglutide(0.25 or 0.5MG/DOS))Indica tions:Prediabetes ,Obesity, Class I, BMI 30.0-34.9 (see actual BMI) Inject 0.5 mg under the skin once a week. 3 mL 1 4 Active Ozempic (0.25 or 0.5 MG/DOSE) 2 MG/3ML Solution Pen-injector (Semaglutide(0.25 or 0.5MG/DOS))Indica tions:Prediabetes ,Obesity, Class I, BMI 30.0-34.9 (see actual BMI) Inject 0.5 mg under the skin once a week. 3 mL 5 4 10/27/19 24 Discontinued HYDROcodone-Aceta minophen 5-325 MG Oral TabletIndications :Lumbar degenerative disc disease Take 1 Tablet by mouth every 12 hours as needed for Pain, Mild. 60 Tablet 4 10/26/19 24 Discontinued(Ref ill) documented as of this encounter (statuses as of 10/29/2023) Active Problems Problem Noted Date Diagnosed Date [...] as of this encounter (statuses as of 10/29/2023) Resolved Problems Problem Noted Date Diagnosed Date [...] as of this encounter (statuses as of 10/29/2023) Immunizations Name Administration Dates Next Due COVID-19 mRNA, LNP-s, No Pre serve, 2-Dose Series (Doorman) 01/07/2021,03/19/2020,02/27/2020 Pneumococcal Conjugate Vacc, 13 Valent (Prevnar) [...] encounter Miscellaneous Notes * Telephone Encounter - Vijay Posadas - 10/29/2023 11:09 AM EDT Received message from [facility] regarding patient needing labs. Patient was notified. Successfully contacted patient and provided [facility] message. * Telephone Encounter - Tayo Bullock RP - 10/27/2023 10:57 AM EDTSigned Prescriptions: Disp Refills Ozempic (0.25 or 0.5 MG/DOSE) 2 MG/3ML Heather*3 mL 1 Sig: Inject 0.5 mg under the skin once a week. Authorizing Provider: KELSEA LADD Ordering User: TAYO BULLOCK * Telephone Encounter - Tayo Bullock RPh - 10/27/2023 10:53 AM EDT Provided 28 days supply with 0 refill(s). Per refill protocol patient should have A1C and lipid panel on file within past year. Reviewed AMP report, Care Gaps/Health Maintenance, medications list, and for any routine labs typically ordered for this patient. Lab orders placed. Please contact patient to advise of labs ordered for blood draw. Recommend patient to fast if able for labs. Patient may still have water and regular medications. Advise to obtain labs before her scheduled office visit 11/23/2023. Thank you, Tayo Bullock [facility] Clinical Pharmacist [facility] ([facility]) 10/27/23 10:55 AM [phone] documented in this encounter Plan of Treatment Upcoming Encounters Date Type Department Care Team (Late st Contact Info) Description 11/23/2023 9:00 AM EDT Office Visit Family Medicine [address] [place] [phone] Kelsea Ladd MD [address] [place] [address] [place] [phone] 05/18/2024 10:30 AM EDT Imaging Radiology [address] [place] [address] Health Maintenance Due Date Last Done Comments Cologuard 1995 Fecal Occult Blood Test 1995 Sigmoidoscopy 1995 Zoster Vaccines (1 of 2) 02/23/2000 Adult Wellness Visit 02/23/2016 Depression Screening 06/13/2021 06/13/2020 COVID-19 Vaccine ( season) 2023 01/07/2021, 03/19/2020, 02/27/2020 Influenza Vaccine (FLU shot) (#1) 2023 04/22/2023, 01/15/2022, 12/06/2020, Additional history exists Mammogram 05/17/2024 05/18/2023, 040 08/2022, 02/14/2021, Additional history exists TSH 06/24/2024 06/25/2023, 090 09/2022, 07/16/2021, Additional history exists DXA Scan 07/08/2024 07/08/2017 GFR 07/16/2024 07/17/2023, 09/0 09/2022, 01/15/2022, Additional history exists Albumin/Creatinine Ratio 10/17/2025 023, 01/15/2022, 02/18/2019, Additional history exists DTap/Tdap Vaccines (2 - Td or Tdap) 07/08/2027 07/07/2017 Lipid Panel 10/18/2027 10/17/2022, 060 08/2021, 08/23/2020, Additional history exists Colonoscopy 07/13/2033 [...] unspecified documented in this encounter Care Teams Heel Seat Fitter Relationship Specialty Start Date End Date Kelsea Ladd MD [address] [place] [address] [place] [phone] PCP - General Family Medicine 12/25/20 documented as of this encounter
--- OUTSIDE RECORDS SUMMARY | 2024-04-12 04:48 | External Medical Summary | Summary of Care ---
Author Name Unknown Organization [facility] Address [address] [facility] [place] [address] Phone [phone] Care Team Providers Care Manager Appointment Name Role Phone Kelsea Ladd MD Primary Care Prov ider Reason for Visit * Reason Comments eRx-Medication Refill Encounter Details Date Type Department Care Team (Late st Contact Info) Description 10/31/2023 Refill General Internal Medicine [facility] [address] Kelsea Ladd MD [address] [place] [address] [place] [phone] History of pulmonary embolism Allergies Active Allergy Reactions Criticality Noted Date Comments Amoxicillin 05/11/2015 Nitrofurantoin Rash 05/11/2015 Phenazopyridine Rash 05/11/2015 documented as of this encounter (statuses as of 11/01/2023) Medications Medication Sig Dispensed Refills Start Date End Date Status losartan-hctz 100-25 mg per tab (HYZAAR) 100-25 MG per tabletIndications: HTN, goal below 150/90 Take 1 Tab by mouth daily. 30 Tab 5 12/17/2017 Active Diclofenac Sodium 1 % gelIndications:Str ain [...] 12/06/2020 Active Azelastine HCl 0.1 % Nasal SolutionIndication [...] Active Rizatriptan Benzoate 10 MG Oral Tablet (Maxalt)Indication s:Migraine without aura and without status migrainosus, not intractable Take 1 Tablet by mouth as needed for Migraine. at onset of headache, may repeat every 2 hours up to 2 times. Up to 3 tablets in 24 hours 20 Tablet 3 02/11/2022 Active Potassium Chloride ER 10 MEQ Oral Capsule Extended ReleaseIndications :Hypokalemia Take by mouth 1 Capsule in the [...] 05/06/2023 Active Linzess 290 MCG Oral Capsule (linaCLOtide)Indic ations:Chronic constipation TAKE ONE CAPSULE BY MOUTH BEFORE BREAKFAST 90 Capsule 1 05/12/2023 Active Montelukast Sodium 10 MG Oral Tablet (Singulair)Indicat ions:Chronic maxillary sinusitis,Allergy to environmental factors Take 1 Tablet by mouth in the morning. 90 Tablet 3 07/01/2023 Active Sucralfate 1 GM Oral Tablet (Carafate)Indicati ons:Gastroesophage al reflux disease without esophagitis,Epigas tric pain Take 1 Tablet by mouth 4 times a day before meals and at bedtime. half an hour before meals and at bedtime 360 Tablet 3 07/01/2023 Active Ondansetron HCl 8 MG Oral TabletIndications: Nausea and vomiting, unspecified vomiting type Take 1 Tablet by mouth every 12 hours as needed for Nausea. 20 Tablet 07/01/2023 Active amLODIPine Besylate 10 MG Oral [...] 10/06/2023 Active Topiramate 25 MG Oral Tablet (topAMAX)Indicatio [...] MG/DOSE) 2 MG/3ML Solution Pen-injector (Semaglutide(0.25 or 0.5MG/DOS))Indicat ions:Prediabetes,O besity, Class I, BMI 30.0-34.9 (see actual BMI) Inject 0.5 mg under the skin once a week. 3 mL 1 10/27/2023 Active HYDROcodone-Acetam inophen 5-325 MG Oral TabletIndications: Lumbar degenerative disc disease Take 1 Tablet by mouth every 12 hours as needed for Pain, Mild. 60 Tablet 10/28/2023 Active Albuterol Sulfate HFA 108 (90 Base) MCG/ACT Inhalation Aerosol SolutionIndication s:History of pulmonary embolism Inhale 2 Puffs by mouth every 6 hours as needed for Shortness of Breath. 8.5 g 3 11/01/2023 Active Albuterol Sulfate HFA 108 (90 Base) MCG/ACT Inhalation Aerosol SolutionIndication s:History of pulmonary embolism Inhale 2 Puffs by mouth every 6 hours as needed for Shortness of Breath. 8.5 g 3 07/30/2023 11/01/19 24 Discontinued documented as of this encounter (statuses as of 11/01/2023) Active Problems Problem Noted Date Diagnosed Date [...] as of this encounter (statuses as of 11/01/2023) Resolved Problems Problem Noted Date Diagnosed Date [...] as of this encounter (statuses as of 11/01/2023) Immunizations Name Administration Dates Next Due COVID-19 mRNA, LNP-s, No Pre serve, 2-Dose Series (Floor64) 01/07/2021,03/19/2020,02/27/2020 Pneumococcal Conjugate Vacc, 13 Valent (Prevnar) [...] encounter Miscellaneous Notes * Telephone Encounter - Anjana Gan, [facility] - 11/01/2023 12:44 PM EDTSigned Prescriptions: Disp Refills Albuterol Sulfate HFA 108 (90 Base) MCG/AC*8.5 g 3 Sig: Inhale 2Puffs by mouth every 6 hours as needed for Shortness of Breath.Authorizing Provider: KELSEA LADD User: ANJANA GAN documented in this encounter Plan of Treatment Upcoming Encounters Date Type Department Care Team (Late st Contact Info) Description 11/23/2023 9:00 AM EDT Office Visit Family Medicine [address] [phone] Kelsea Ladd MD [address] [place] [address] [place] [phone] 05/18/2024 10:30 AM EDT Imaging Radiology [address] [place] [address] Health Maintenance Due Date Last Done Comments Cologuard 1995 Fecal Occult Blood Test 1995 Sigmoidoscopy 1995 Zoster Vaccines (1 of 2) 02/23/2000 Adult Wellness Visit 02/23/2016 Depression Screening 06/13/2021 06/13/2020 COVID-19 Vaccine ( season) 2023 01/07/2021, 03/19/2020, 02/27/2020 Influenza Vaccine (FLU shot) (#1) 2023 04/22/2023, 01/15/2022, 12/06/2020, Additional history exists Mammogram 05/17/2024 05/18/2023, 08/2022, 02/14/2021, Additional history exists TSH 06/24/2024 [...] embolism documented in this encounter Care Teams Manager Appointment Relationship Specialty Start Date End Date Kelsea Ladd MD [address] [place] [address] [place] [phone] PCP - General Family Medicine 12/25/20 documented as of this encounter
--- OUTSIDE RECORDS SUMMARY | 2024-04-12 04:48 | External Medical Summary | Summary of Care ---
Author Name Unknown Organization [facility] Address [address] [address] Phone [phone] Care Team Providers Care Nursing Admin Name Role Phone Kelsea Ladd MD Primary Care Prov ider Reason for Visit * Reason Onset Date Comments Medication Refill 11/27/2023 Encounter Details Date Type Department Care Team (Late st Contact Info) Description 11/27/2023 Refill Family Medicine [address] [phone] Kelsea Ladd MD [address] [place] [address] [place] [address] Lumbar degenerative disc disease Allergies Active Allergy Reactions Criticality Noted Date Comments Amoxicillin 05/11/2015 Nitrofurantoin Rash 05/11/2015 Phenazopyridine Rash 05/11/2015 documented as of this encounter (statuses as of 11/30/2023) Medications Medication Sig Dispensed Refills Start Date [...] by mouth in the morning. 11/24/2023 Active HYDROcodone-Acetami nophen 5-325 MG Oral TabletIndications:L umbar degenerative disc disease Take 1 Tablet by mouth every 12 hours as needed for Pain, Mild. 60 Tablet 11/30/2023 Active HYDROcodone-Acetami nophen 5-325 MG Oral TabletIndications:L umbar degenerative disc disease Take 1 Tablet by mouth every 12 hours as needed for Pain, Mild. 60 Tablet 10/28/2023 Discontinue d(Refill) documented as of this encounter (statuses as of 11/30/2023) Active Problems Problem Noted Date Diagnosed Date [...] as of this encounter (statuses as of 11/30/2023) Resolved Problems Problem Noted Date Diagnosed Date [...] as of this encounter (statuses as of 11/30/2023) Immunizations Name Administration Dates Next Due COVID-19 mRNA, LNP-s, No Pre serve, 2-Dose Series ([facility]) 01/07/2021,03/19/2020,02/27/2020 Pneumococcal Conjugate Vacc, 13 Valent (Prevnar) [...] Telephone Encounter - Kelsea Ladd MD - 11/30/2023 10:28 AM EDTSigned Prescriptions: Disp Refills HYDROcodone-Acetaminophen 5-325 MG Oral Ta*60 Tab*0 Sig: Take 1 Tablet by mouth every 12 hours as needed for Pain, Mild. Authorizing Provider: KELSEA LADD * Telephone Encounter - [facility] - 11/29/2023 1:00 PM EDT Pending Prescriptions: Disp Refills HYDROcodone-Acetaminophen 5-325 MG Oral Ta*60 Tab*0 Sig: Take 1 Tablet by mouth every 12 hours as needed for Pain, Mild. * Telephone Encounter - [facility] - 11/29/2023 1:00 PM EDT I have reviewed the patients controlled substance dispensing history in the Prescription Drug Monitoring Program in compliance with the [facility] regulations before prescribing a controlled substance. PDMP checked on 11/29/2023. Pending Prescriptions: Disp Refills HYDROcodone-Acetaminophen 5-325 MG Oral T*60 Tab*0 Sig: Take 1 Tablet by mouth every 12 hours as needed for Pain, Mild. Last Visit: 11/24/2023 (in office), Visit date not found (telemedicine) Next Visit: 07/25/2024 Date medication was last filled: 10/28/23 Date medication is due for refill: 11/26/23 Pharmacy: [facility] [place] Is this request for a controlled substance? Yes and Urine Drug Screen was completed Toxicology results: Results for orders placed [...] Clinical Pharmacist Centralized Clinical Pharmacy Services (CCPS) 11/29/23 1:00 PM [phone] documented in this encounter Plan of Treatment Upcoming Encounters Date Type Department Care Team (Late st Contact Info) Description 12/01/2023 10:30 AM EDT Imaging Radiology [address] [place] [address] 05/18/2024 10:30 AM EDT Imaging Radiology [address] [place] [address] 07/25/2024 9:00 AM EDT Office Visit Family Medicine [address] [place] [phone] Kelsea Ladd MD [address] [place] [address] [place] [address] Health Maintenance Due Date Last Done Comments [...] disc documented in this encounter Care Teams Nursing Admin Relationship Specialty Start Date End Date Kelsea Ladd MD [address] [place] [address] [place] [phone] PCP - General Family Medicine 12/25/20 documented as of this encounter
--- OUTSIDE RECORDS SUMMARY | 2024-04-12 04:48 | External Medical Summary | Summary of Care ---
Author Name Unknown Organization [facility] Address [address] [facility] [place] [address] Phone [phone] Care Team Providers Care Tobacco Warehouse Manager Name Role Phone Kelsea Ladd MD Primary Care Prov ider Reason for Visit * Reason Onset Date Comments Medication Refill 11/04/2023 Encounter Details Date Type Department Care Team (Late st Contact Info) Description 11/04/2023 Refill Family Medicine [address] [phone] Kelsea Ladd MD [address] [place] [address] [place] [address] Nausea and vomiting, unspecified [...] mRNA, LNP-s, No Pre serve, 2-Dose Series ([employer]) 01/07/2021,03/19/2020,02/27/2020 Pneumococcal Conjugate Vacc, 13 Valent (Prevnar) [...] Tablet 20 Tab*0 Sig: Take 1 Tablet bymouth every 12 hours as needed for Nausea.Authorizing Provider: KELSEA LADDOrderingUser: Harinder SORIA Prescriptions: Disp Refills Ozempic (0.25 or 0.5 MG/DOSE) 2 MG/3ML Heather*3 mL 1 Refused By: ZAY SORIAeason for Refusal:Too soon documented in this encounter Plan of Treatment Upcoming Encounters Date Type Department Care Team (Late st Contact Info) Description 11/23/2023 9:00 AM EDT Office Visit Family Medicine [address] [place] [phone] Kelsea Ladd MD [address] [place] [address] [place] [phone] 05/18/2024 10:30 AM EDT Imaging Radiology [address], [address] [place] [address] Health Maintenance Due Date Last Done [...] unspecified documented in this encounter Care Teams Tobacco Warehouse Manager Relationship Specialty Start Date End Date Kelsea Ladd MD [address] [place] [address] [place] [phone] PCP - General Family Medicine 12/25/20 documented as of this encounter
--- OUTSIDE RECORDS SUMMARY | 2024-04-12 04:48 | External Medical Summary | Summary of Care ---
Author Name Unknown Organization [facility] Address [address] [facility] [place] [address] Phone [phone] Care Team Providers Care Airline Reservationist Name Role Phone Tawana Mcgrath MD Primary Care Prov ider Reason for Visit * Reason Comments Outpatient Testing Encounter Details Date Type Department Care Team (Late st Contact Info) Description 11/24/2023 2:00 PM EDT Laboratory Laboratory [address] [place] [phone] [facility] [address] [place] [address] Encounter for long-term (current) use of medications; HTN, goal below 150/90; Pure hypercholesterolemia; Hypothyroidism due to acquired atrophy of thyroid Allergies Active Allergy Reactions Criticality Noted Date [...] mRNA, LNP-s, No Pre serve, 2-Dose Series ([employer]) 01/07/2021,03/19/2020,02/27/2020 Pneumococcal Conjugate Vacc, 13 Valent (Prevnar) [...] on file documented as of this encounter Plan of Treatment Upcoming Encounters Date Type Department Care Team (Late st Contact Info) Description 05/18/2024 10:30 AM EDT Imaging Radiology [address] [place] [phone] 07/25/2024 9:00 AM EDT Office Visit Family Medicine [address] [address] [phone] Tawana Mcgrath MD [address] [place] [address] [place] [phone] Pending Results Name Type Priority Associated Diagnoses Date /Time MAGNESIUM Lab Routine Encounter for long-term (current) use of medications 11/24/2023 1:38 PM EDT VITAMIN B12 Lab Routine Encounter for long-term (current) use of medications 11/24/2023 1:38 PM EDT COMPREHENSIVE METABOLIC PANEL Lab Routine HTN, goal below 150/90 11/24/2023 1:38 PM EDT LIPID PANEL WITH DIRECT LDL IF TG IS HIGH Lab Routine Pure hypercholesterolemia 11/24/2023 1:38 PM EDT HEMOGLOBIN A1C Lab Routine HTN, goal below 150/90 Hypothyroidism due to acquired atrophy of thyroid Pure hypercholesterolemia 11/24/2023 1:38 PM EDT TSH WITH FREE T4 IF INDICATED Lab Routine Hypothyroidism due to acquired atrophy of thyroid 11/24/2023 1:38 PM EDT CBC WITH WBC DIFFERENTIAL AND ANEMIA REFLEX WORKUP Lab Routine HTN, goal below 150/90 11/24/2023 1:38 PM EDT ANEMIA CBC Lab Routine HTN, goal below 150/90 11/24/2023 1:38 PM EDT DIFFERENTIAL, AUTOMATED Lab Routine HTN, goal below 150/90 11/24/2023 1:38 PM EDT ANEMIA REFLEX CHEMISTRY HOLD Lab Routine HTN, goal below 150/90 11/24/2023 1:38 PM EDT Health Maintenance Due Date Last Done Comments [...] as of this encounter Visit Diagnoses Diagnosis Encounter for long-term (current) use of medications Encounter for long-term (current) use of other medications HTN, goal below 150/90 Pure hypercholesterolemia Hypothyroidism due to acquired atrophy of thyroid documented in this encounter Care Teams Airline Reservationist Relationship Specialty Start Date End Date Tawana Mcgrath MD [address] [place] [address] [place] [phone] PCP - General Family Medicine 12/25/20 documented as of this encounter
--- OUTSIDE RECORDS SUMMARY | 2024-04-12 04:48 | External Medical Summary ---
Author Name Unknown Address Unknown Organization K01:[place] [facility] [place] [address] [facility] [place] [address] Laboratory Report Ordering Provider Test Date Status TYLER ENAMORADO 11/24/2023 13:38:54 Final Observation Date Value Abnormality Reference (Units ) Status BUN 11/24/2023 13:38:54 15 6-20 (mg/dL) Final Creatinine 11/24/2023 13:38:54 0.8 0.5-1.0 (mg/dL) Final Glomerular filtration rate/1.73 sq M.predicted [Volume Rate/Area] in Serum, Plasma or Blood by Creatinine-based formula (CKD-EPI) 11/24/2023 13:38:54 74 >=60 (mL/min) Final eGFR is calculated based on the CKD-EPI 2020 equation. Sodium 11/24/2023 13:38:54 141 135-146 (m mol/L) Final Potassium 11/24/2023 13:38:54 3.5 3.5-5.1 (m mol/L) Final Cl 11/24/2023 13:38:54 103 98-107 (mm ol/L) Final CO2 11/24/2023 13:38:54 26 22-32 (mmo l/L) Final Anion gap 11/24/2023 13:38:54 12 7-15 (mmol /L) Final Glucose 11/24/2023 13:38:54 85 70-120 (mg /dL) Final Albumin 11/24/2023 13:38:54 4.9 3.8-5.0 (g /dL) Final AST (Aspartate aminotransferase) 11/24/2023 13:38:54 29 10-35 (U/L) Final Alk Phos 11/24/2023 13:38:54 111 35-130 (U/ L) Final Bilirubin, Total 11/24/2023 13:38:54 0.9 <=1 .2 (mg/dL) Final Calcium 11/24/2023 13:38:54 9.5 8.4-10.2 ( mg/dL) Final Protein 11/24/2023 13:38:54 6.7 6.0-8.3 (g /dL) Final ALT (Alanine aminotransferase) 11/24/2023 13:38:54 34 10-35 (U/L) Final Performing Location [facility] [place] - [address] [facility] [address]
--- OUTSIDE RECORDS SUMMARY | 2024-04-12 04:48 | External Medical Summary ---
Author Name Unknown Address Unknown Organization K01[place] [facility] [place] [address] [place] [address] Laboratory Report Ordering Provider Test Date Status STUARTLUIS 11/24/2023 13:38:54 Final Observation Date Value Abnormality Reference (Units ) Status SYNC LEUKOCYTES IN BLOOD BY AUTOMATED COUNT 11/24/2023 13:38:54 6.70 4.00-10.80 (K/uL) Final Segs 11/24/2023 13:38:54 43.6 40.0-75.0 (%) Final Lymphs % 11/24/2023 13:38:54 47.3 Above high normal 18.0-42.0 (%) Final Monos 11/24/2023 13:38:54 7.8 1.0-11.0 (%) Final Eosinophils 11/24/2023 13:38:54 0.6 0.0-6.0 (%) Final Basos 11/24/2023 13:38:54 0.3 0.0-2.0 (%) Final Immature Granulocyte, Percent 11/24/2023 13:38:54 0.4 0.0-2.0 (%) Final Absolute Segs 11/24/2023 13:38:54 2.92 1.80-7.70 (K/uL) Final Lymphs, absolute 11/24/2023 13:38:54 3.17 1.00-4.80 (K/ul) Final Monos, Abs 11/24/2023 13:38:54 0.52 0.00-1.10 (K/uL) Final Eos, Abs 11/24/2023 13:38:54 0.04 0.00-0.70 (K/uL) Final Basos, Abs 11/24/2023 13:38:54 0.02 0.00-0.20 (K/uL) Final Immature Granulocytes, Number 11/24/2023 13:38:54 0.03 0.00-0.20 (K/uL) Final Performing Location [place] [facility] [place] [address] [facility] [address]
--- OUTSIDE RECORDS SUMMARY | 2024-04-12 04:48 | External Medical Summary ---
Author Name Unknown Address Unknown Organization K01:[facility]ORY [facility] [place] - [address] [place] [address] Laboratory Report Ordering Provider Test Date Status TYLER ENAMORADO 11/24/2023 13:38:54 Final Observation Date Value Abnormality Reference (Units ) Status HbA1C 11/24/2023 13:38:54 5.5 4.0-5.6 (% ) Final The use of HbA1c to monitor glycemic status is based on normal hemoglobin and HbA composition. This test should not be used in patients with abnormal hemoglobin that affects the half life of the red blood cell or the in vivo glycation rates. Glucose, estimated average 11/24/2023 13:38:54 111 <126 (mg/dL) Final Performing Location [facility] [place] [facility] [address] [facility] [address]
--- OUTSIDE RECORDS SUMMARY | 2024-04-12 04:48 | External Medical Summary ---
Author Name Unknown Address Unknown Organization K01:LAB[facility]ATORY [facility] [place] - [address] [facility] [place] [address] Laboratory Report Ordering Provider Test Date Status TYLER ENAMORADO 11/24/2023 13:38:54 Final Observation Date Value Abnormality Reference (Units ) Status Triglyceride 11/24/2023 13:38:54 85 <=174 ( mg/dL) Final Triglyceride Reference Range s (mg/dL):
<150 Acceptable
150-174 Borderline high
175-499 High
>=500 Very high Cholesterol 11/24/2023 13:38:54 179 <200 (mg /dL) Final Total Cholesterol Reference Ranges (mg/dL):
<200 Desirable
200-239 Borderline high
>=240 High HDL 11/24/2023 13:38:54 81 >49 (mg/dL ) Final HDL Cholesterol Reference Ra nges (mg/dL):
>=60 High (Desirable)
<50 Low (Undesirable) For Females
<40 Low (Undesirable) For Males NON-HDL CHOLESTEROL 11/24/2023 13:38:54 98 <=159 (mg/dL) Final Non-HDL Cholesterol Referenc e Range (mg/dL):
<100 Target level for high risk ASCVD patient
<130 Optimal for general population
130-159 Near optimal for general population
160-189 Borderline High
190-219 High
>=220 Very High LDL, (calculated) 11/24/2023 13:38:54 81 <= 129 (mg/dL) Final LDL Cholesterol Reference Ra nges (mg/dL):
<70 Target level for high risk ASCVD patient
<100 Optimal for general population
100-129 Near optimal for general population
130-159 Borderline high
160-189 High
>=190 Very high Performing Location LABORATORY [facility] [place] - [address] [place] [address]
--- OUTSIDE RECORDS SUMMARY | 2024-04-12 04:49 | External Medical Summary | Summary of Care ---
Author Name Unknown Organization [facility] Address [address] [facility] [place] [address] Phone [phone] Care Team Providers Care Medical Attendant Name Role Phone Kelsea Ladd MD Primary Care Prov ider Reason for Visit * Reason Onset Date Comments Medication Refill 10/26/2023 Encounter Details Date Type Department Care Team (Late st Contact Info) Description 10/26/2023 Refill Family Medicine [address] [phone] Thanh Archuleta MD [address] [place] [address] [place] [address] Lumbar degenerative disc disease Allergies Active Allergy Reactions Criticality Noted Date Comments Amoxicillin 05/11/2015 Nitrofurantoin Rash 05/11/2015 Phenazopyridine Rash 05/11/2015 documented as of this encounter (statuses as of 10/28/2023) Medications Medication Sig Dispensed Refills Start Date [...] 07/01/2023 Active Ondansetron HCl 8 MG Oral TabletIndications:N ausea and vomiting, unspecified vomiting type Take 1 Tablet by mouth every 12 hours as needed for Nausea. 20 Tablet 07/01/2023 Active amLODIPine Besylate 10 MG Oral Tablet (Norvasc)Indication s:HTN, goal below 150/90 TAKE ONE TABLET BY MOUTH EVERY MORNING 90 Tablet 1 07/06/2023 Active Albuterol Sulfate HFA 108 (90 Base) MCG/ACT Inhalation Aerosol SolutionIndications :History of pulmonary embolism Inhale 2 Puffs by mouth every 6 hours as needed for Shortness of Breath. 8.5 g 3 07/30/2023 Active Cetirizine HCl 10 MG Oral Tablet [...] for Pain, Mild. 60 Tablet 10/28/2023 Active HYDROcodone-Acetami nophen 5-325 MG Oral TabletIndications:L umbar degenerative disc disease Take 1 Tablet by mouth every 12 hours as needed for Pain, Mild. 60 Tablet 09/24/2023 4 Discontinue d(Refill) documented as of this encounter (statuses as of 10/28/2023) Active Problems Problem Noted Date Diagnosed Date [...] as of this encounter (statuses as of 10/28/2023) Resolved Problems Problem Noted Date Diagnosed Date [...] as of this encounter (statuses as of 10/28/2023) Immunizations Name Administration Dates Next Due COVID-19 mRNA, LNP-s, No Pre serve, 2-Dose Series ([employer]) 01/07/2021,03/19/2020,02/27/2020 Pneumococcal Conjugate Vacc, 13 Valent (Prevnar) [...] 5:03 PM EDT Sexual Orientation Straight 06/08/2018 5 :03 PM EDT Job Start Date Occupation Industry Not on file Not on file Not on file documented as of this encounter Miscellaneous Notes * Telephone Encounter - Kelsea Ladd MD - 10/28/2023 2:57 PM EDT Signed Prescriptions: Disp Refills HYDROcodone-Acetaminophen 5-325 MG Oral Ta*60 Tab*0 Sig: Take 1 Tablet by mouth every 12 hours as needed for Pain, Mild. Authorizing Provider: KELSEA LADD * Telephone Encounter - Maddy Joy [facility] - 10/27/2023 4:18 PM EDTPending Prescriptions: Disp Refills HYDROcodone-Acetaminophen 5-325 MG Oral Ta*60 Tab*0 Sig: Take 1 Tablet by mouth every 12 hours as needed for Pain, Mild. * Telephone Encounter - Maddy Joy [facility] - 10/27/2023 4:16 PM EDT I have reviewed the patients controlled substance dispensing history in the Prescription Drug Monitoring Program in compliance with the [facility] regulations before prescribing a controlled substance. PDMP checked on 10/27/2023. Pending Prescriptions: Disp Refills HYDROcodone-Acetaminophen 5-325 MG Oral T*60 Tab*0 Sig: Take 1 Tablet by mouth every 12 hours as needed for Pain, Mild. Last Visit: 08/28/2023 (in office), Visit date not found (telemedicine) Next Visit: 11/23/2023 Date medication was last filled: 09/25/23 Date medication is due for refill: 10/24/23 Pharmacy: [facility] Is this request for a controlled [...] request. Please approve if appropriate. Thank you, Maddy Joy, PharmD Clinical Pharmacist Centralized Clinical Pharmacy Services (CCPS) 10/27/23 4:16 PM [phone] documented in this encounter Plan of Treatment Upcoming Encounters Date Type Department Care Team (Late st Contact Info) Description 11/23/2023 9:00 AM EDT Office Visit Family Medicine [address] [place] [phone] Kelsea Ladd MD [address] [place] [address] [place] [phone] 05/18/2024 10:30 AM EDT Imaging Radiology [facility], [address] [place] [address] Health Maintenance Due Date Last Done [...] disc documented in this encounter Care Teams Medical Attendant Relationship Specialty Start Date End Date Kelsea Ladd MD [address] [place] [address] [place] [phone] PCP - General Family Medicine 12/25/20 documented as of this encounter
[2024-04-12 07:29] LABS: Hemoglobin 12.3 g/dl (12.0-16.0); Mean Corpuscular Hemoglobin 31.3 pg (25.0-34.0); Mean Corpuscular Hgb Conc 33.2 g/dL (32.0-36.0); Mean Corpuscular Volume 94.1 fL (80.0-100.0); Mean Platelet Volume 10.6 fL (9.4-12.4); Platelet Count 176 K/uL (130-400); RDW Standard Deviation 52.3 fL (36.4-46.3); Red Blood Count 3.93 M/uL (4.20-5.40); White Blood Count 6.17 K/ul (4.8-10.8)
[2024-04-12 07:43] LABS: Anion Gap 3 (3-11); BUN Creatinine Ratio 19.2 (10-20); Blood Urea Nitrogen 19 mg/dl (6-23); Calcium 8.5 mg/dl (8.6-10.3); Carbon Dioxide 29 mmol/L (21-32); Chloride 111 mmol/L (98-107); Creatinine Clr Calc Pharmacy 47.9 ml/min; Glucose 98 mg/dl (70-99(Fasting)); Magnesium 2.2 mg/dl (1.7-2.4); Sodium 143 mmol/L (136-145)
[2024-04-12 07:59] LABS: Thyroid Stimulating Hormone 0.511 uIu/ml (0.300-4.500)
--- NOTE | 2024-04-12 08:19 | Surgery Progress Note ---
Date of Service April 12, 2024 Assessment & Plan (1) Small bowel obstruction: Plan: Pt with history of JHON, open yayo, appy here with concern for SBO WBC 6, Hbg 12. Vitals stable NGT 1L documented Patient with some discomfort in abd and mild nausea that remains present although, but reports she is improved from admission She did pass some gas this AM KUB is ordered and pending for follow up of bowel/gas pattern For now we'll recommend NGT to remain in place until more meaningful bowel function. will f/u on KUB results Encouraged ongoing ambulation, can clamp NGT to walk the halls Admission and Anticipated Discharge Date Admission Date: April 11, 2024 Supervising Physician Co-Signing Physician Notes Patient seen and examined, labs imaging reviewed, agree with above. Admitted in transfer from [facility] for small bowel obstruction. She did pass some flatus this morning is feeling better though still sore. On exam she is afebrile with stable vitals, mildly tender to palpation at midline, mildly distended. Labs unremarkable. KUB shows dilated loops of bowel in the lower abdomen up to 3.2 cm. It does appear that her bowel obstruction is resolving clinically, will continue NG tube for now. If she continues to pass flatus then we can clamp the NG tube and remove if low residuals and not having any symptoms. Subjective Patient still with some abdominal soreness/discomfort and mild nausea, but reports feeling better overall than upon arrival to [place]. She did pass some flatus this AM. Has a sore throat from NGT. Reports taking miralax and movantik at baseline to help her stools move. Physical Exam Physical Exam: awake/alert, no distress Respiratory: normal respiratory effort Gastrointestinal (Abdomen): Inspection/Auscultation: + abdomen distended (mild lower abdominal fullness) Percussion/Palpation: + abdomen tender (ttp mostly in infraumbilical region, mild R mid abdomen) and abdomen soft NGT with 1L documented, dark green/brown drainage Results & Data Vital Signs (Past 12 Hours) Vital Signs Temp Pulse Resp BP Pulse Ox O2 Del Method 04/12/24 06:59 97.9 F 74 16 129/80 94 Room Air PG Care Time/CCT Total # of Minutes Spent Total Time Spent with Patient: Total time spent is greater than 50% in coordination of care (as documented) at patient's floor/unit and/or counseling patient: Coding Level of Care Code 08187 SUB INP/OBS CARE 03/05MIN Diagnoses Small bowel obstruction K56.609
[2024-04-12] MEDS ORDERED: PROPYLENE GLYCOL 0.6% OP SCH (09:00)
--- NOTE | 2024-04-12 09:51 | XRay Report ---
KUB HISTORY: Generalized abdominal pain was reported small bowel obstruction eval sbo COMPARISON: CT abdomen and pelvis from outside institution April 11, 2024 FINDINGS: Cholecystectomy. Upper abdomen is partially excluded from the [id number]. Status post pl acement of an enteric tube, distal tip projecting superiorly in the expected location of the gastric body. Dilated loops of small bowel within the abdominal right lower quadrant are again noted measurin g up to approximately 3.2 cm. Moderate fecal retention. Surgical clips project over the inguinal tiss ues. Umbilical jewelry. No renal calculi. No ureteral calculi. No pneumoperitoneum or pneumatosis. N o fracture. IMPRESSION: 1. Status post placement of an enteric tube, distal tip projected over the gastric body. 2. Persistent small bowel obstruction. 3. Cholecystectomy. ACT 112: Negative or not required by law. The above report was generated using voice recognition software. It may contain grammatical, syntax o r spelling errors. Electronically signed by: Henry Montgomery M.D. 04/12/2024 9:49 AM
--- NOTE | 2024-04-12 15:33 | Hospitalist Progress Note ---
Date of Service April 12, 2024 Assessment & Plan (1) Small bowel obstruction: Plan: Concepcion Sellers is a 74y/o F with PMHx significant for hypothyroidism due to acquired atrophy of thyroid, HTN, HLD, uncomplicated asthma, GERD without esophagitis, SBO, vitamin B12 deficiency, lumbar DDD, plantar fasciitis, peripheral neuropathy, age-related osteoporosis, migraines, rheumatoid arthritis and history of LLE DVT/PE with pulmonary infarction (no longer on AC therapy) who is a direct transfer from [facility] with recurrent SBO requiring NG tube placement. CTAP results from [facility] obtained with the following impression: dilated fluid-filled small bowel loops suggestive of intestinal obstruction with the transitional zone suggested to be in the distal ileal loops at the mid-abdomen (immediately beneath the anterior abdominal wall). S/p 1L NSS at [facility]. NG tube placed at [facility]. Plan: -Routine SBO management with NPO/bowel rest status and IVF. PRN pain control and antiemetics. Appreciate general surgery consult. (2) Hypothyroidism: Plan: -Will need to resume home levothyroxine as able. (3) HTN (hypertension): Plan: -Will need to resume home antihypertensives as able. Routine BP monitoring. PRN IV hydralazine 5mg Q4H for SBP>180. (4) Hyperlipidemia: Plan: -Will need to resume home atorvastatin as able. (5) Rheumatoid arthritis: Plan: -On Enbrel and Rinvoq - will need to resume these medications as able. Plan Feeding/fluids: NPO Analgesia: tylenol, toradol Sedation: na Thromboprophylaxis: start lovenox Head up position: na Ulcer prophylaxis: na Glycemic control: na Spontaneous breathing trial: na Bowel care: NG tube Indwelling catheter removal: na Deescalation of antibiotics: na I spent a total of 50 minutes in direct patient care, including [id number] time with the patient and/or family, reviewing medical records, ordering and reviewing diagnostic tests, and coordinating care with other healthcare providers. This time includes: history taking, physical examination, medical decision making, counseling, ECG interpretation, imaging interpretation, lab interpretation, orders, and education, excluding time spent in the performance of separately billed services. Admission and Anticipated Discharge Date Admission Date: April 11, 2024 Subjective Patient seen and examined at bedside. Ms. Sellers is doing ok today. She states she is passing gas but no bowel movement yet. Review of Systems Review of Systems: CONSTITUTIONAL: Patient denies fevers, chills, sweats and weight changes. EYES: Patient denies any visual symptoms. EARS, NOSE, AND THROAT: throat pain CARDIOVASCULAR: Patient denies chest pains, palpitations, orthopnea and paroxysmal nocturnal dyspnea. RESPIRATORY: No dyspnea on exertion, no wheezing or cough. GI: No nausea, vomiting, diarrhea, constipation, abdominal pain, hematochezia or melena. : No urinary hesitancy or dribbling. No nocturia or urinary frequency. No abnormal urethral discharge. MUSCULOSKELETAL: No myalgias or arthralgias. NEUROLOGIC: No chronic headaches, no seizures. Patient denies numbness, tingling or weakness. PSYCHIATRIC: Patient denies problems with mood disturbance. No problems with anxiety. ENDOCRINE: No excessive urination or excessive thirst. DERMATOLOGIC: Patient denies any rashes or skin changes. Physical Exam Physical Exam: Gen: A&O 3 NAD HEENT: NT tube placed to suction Neck: Supple, full range of motion, no observable masses, No meningeal sign. Lungs: No Respiratory distress. CV: RRR, no edema. Abdomen: Soft, nondistended, No rebound tenderness. MSK: No joint swelling, no redness. Skin: No rashes, petechiae, lesions. Normal color per patient. Neuro: Normal Gait, Grossly intact. Psych: Appropriate for situation. Results & Data Results & Data Vital Signs (Past 12 Hours) Vital Signs Temp Pulse Resp BP Pulse Ox O2 Del Method 04/12/24 14:51 36.6 C 77 16 130/82 93 Room Air 04/12/24 06:59 36.6 C 74 16 129/80 94 Room Air Laboratory Results -personally reviewed, creatinine and Hgb at baseline Medications Administered Sodium Chloride (Nss) 1,000 mls @ 80 mls/hr IV .[id number] JOSE Stop: 04/12/24 16:29 Last Admin: 04/12/24 06:01 Dose: 80 mls/hr Documented By: Infusion: 04/12/24 05:44 Dose: Infused Documented By: Admin: 04/11/24 17:14 Dose: 80 mls/hr Documented By: KATHIE Ketorolac Tromethamine (Ketorolac Tromethamine 15 Mg/Ml Vial) 15 mg IV Q6H PRN PRN Reason: Moderate Pain (Scale 4, 5, 6) Stop: 04/16/24 16:27 Last Admin: 04/12/24 09:28 Dose: 15 mg Documented By: Admin: 04/11/24 17:56 Dose: 15 mg Documented By: ARMANDO Morphine Sulfate (Morphine Sulfate 2 Mg/Ml Carp) 2 mg IV Q4H PRN PRN Reason: Sev Pain (Scale 7-10) Stop: 04/25/24 16:26 Last Admin: 04/12/24 13:12 Dose: 2 mg Documented By: Admin: 04/12/24 06:10 Dose: 2 mg Documented By: Admin: 04/11/24 23:47 Dose: 2 mg Documented By: Admin: 04/11/24 19:35 Dose: 2 mg Documented By: PATSY Ondansetron HCl (Ondansetron Inj 2 Mg/Ml 2 Ml Vial) 4 mg IV Q6H PRN PRN Reason: Nausea Stop: 05/11/24 14:45 Last Admin: 04/12/24 06:11 Dose: 4 mg Documented By: Admin: 04/11/24 23:47 Dose: 4 mg Documented By: Admin: 04/11/24 17:56 Dose: 4 mg Documented By: ARMANDO (2) Hypothyroidism Hypothyroidism type: unspecified Qualified Code(s): E03.9 - Hypothyroidism, unspecified (3) HTN (hypertension) Hypertension type: unspecified Qualified Code(s): I10 - Essential (primary) hypertension (4) Hyperlipidemia Hyperlipidemia type: unspecified Qualified Code(s): E78.5 - Hyperlipidemia, unspecified (5) Rheumatoid arthritis Rheumatoid arthritis location: unspecified site Rheumatoid factor presence: unspecified presence Qualified Code(s): M06.9 - Rheumatoid arthritis, unspecified
[2024-04-12] MEDS: D5W AND LACTATED RINGERS 1,000 ML IV SCH (18:17)
[2024-04-13 07:21] LABS: Hematocrit (blood only) 34.4 % (37.0-47.0); Hemoglobin 11.5 g/dl (12.0-16.0); Mean Corpuscular Hemoglobin 31.7 pg (25.0-34.0); Mean Corpuscular Hgb Conc 33.4 g/dL (32.0-36.0); Mean Corpuscular Volume 94.8 fL (80.0-100.0); Mean Platelet Volume 10.5 fL (9.4-12.4); Platelet Count 158 K/uL (130-400); RDW Coefficient of Variation 14.6 % (11.5-14.5); RDW Standard Deviation 51.2 fL (36.4-46.3); Red Blood Count 3.63 M/uL (4.20-5.40); White Blood Count 5.76 K/ul (4.8-10.8)
[2024-04-13 07:51] LABS: Calcium 8.5 mg/dl (8.6-10.3); Creatinine Clr Calc Pharmacy 52.1 ml/min; Magnesium 2.1 mg/dl (1.7-2.4); Potassium 3.3 mmol/L (3.5-5.1)
[2024-04-13] MEDS: ENOXAPARIN INJ 40 MG/0.4 ML SYR SQ SCH (08:38)
--- NOTE | 2024-04-13 08:44 | Surgery Progress Note ---
Date of Service April 13, 2024 Assessment & Plan (1) Small bowel obstruction: Plan: Pt with history of JHON, open yayo, appy here with concern for SBO WBC wnl Vitals stable NGT still with significant output Patient TTP across lower abd quadrant and RUQ + gas this AM with ambulation KUB is ordered ice chips /Chloraseptic spray sore throat Encouraged ongoing ambulation, can clamp NGT to walk the halls Admission and Anticipated Discharge Date Admission Date: April 11, 2024 Supervising Physician Co-Signing Physician Notes Patient seen and examined, labs and imaging reviewed, agree with above. Transfer from [facility] for small bowel obstruction. She has been passing flatus but not had a bowel movement. She is gagging because of the NG tube. On exam she is afebrile stable vitals. Abdomen soft, nontender, less distended. Labs unremarkable. KUB with improvement in the dilated bowel and air and stool throughout the colon. Resolved SBO. Will remove NG tube and start on clear liquids. Slowly advance to low fiber diet. Subjective pt c/o of abd tenderness sore throat from ngt +flatus -BM Review of Systems Constitutional: no fever and no chills Respiratory: no dyspnea Cardiovascular: no chest pain Gastrointestinal: + abdominal pain and + constipation; no nausea and no vomiting Genitourinary: no dysuria Psychiatric: no confusion Physical Exam Constitutional: cooperative; no acute distress Respiratory: normal respiratory effort and able to speak in complete sentences; no respiratory distress Cardiovascular: Rate/Rhythm: regular rate Gastrointestinal (Abdomen): Inspection/Auscultation: + abdominal surgical scar; abdomen not distended Percussion/Palpation: + abdomen tender (lower abd, RUQ ) and abdomen soft Psychiatric: Orientation: alert and oriented x 3 Results & Data Vital Signs (Past 12 Hours) Vital Signs Temp Pulse Resp BP Pulse Ox O2 Del Method 04/13/24 07:42 98.6 F 73 16 122/67 91 Room Air 04/12/24 21:27 97.5 F L 70 16 130/70 93 Room Air PG Care Time/CCT Total # of Minutes Spent Total Time Spent with Patient: Total time spent is greater than 50% in coordination of care (as documented) at patient's floor/unit and/or counseling patient: Coding Level of Care Code 43758 SUB INP/OBS CARE 03/05MIN Diagnoses Small bowel obstruction K56.609
--- NOTE | 2024-04-13 09:26 | XRay Report ---
KUB HISTORY: SBO COMPARISON STUDY: 04/12/2024 FINDINGS: Stable right upper quadrant surgical clips. Nasogastric tube tip is in the body of the stom ach. There is a residual mildly dilated small bowel loop at the left lower quadrant. Otherwise the pr ior small bowel distention is no longer seen. There is moderate retained stool. No colonic distention . No gross free air. IMPRESSION: Mild residual small bowel distention, improved. ACT 112: Negative or not required by law. The above report was generated using voice recognition software. It may contain grammatical, syntax o r spelling errors. Electronically signed by: Darius Alvarez M.D. 04/13/2024 9:24 AM
--- NOTE | 2024-04-13 13:42 | Hospitalist Progress Note ---
Date of Service April 13, 2024 Assessment & Plan (1) Small bowel obstruction: Plan: Concepcion Sellers is a 74y/o F with PMHx significant for hypothyroidism due to acquired atrophy of thyroid, HTN, HLD, uncomplicated asthma, GERD without esophagitis, SBO, vitamin B12 deficiency, lumbar DDD, plantar fasciitis, peripheral neuropathy, age-related osteoporosis, migraines, rheumatoid arthritis and history of LLE DVT/PE with pulmonary infarction (no longer on AC therapy) who is a direct transfer from [facility] with recurrent SBO requiring NG tube placement. -CTAP results from [facility] obtained with the following impression: dilated fluid-filled small bowel loops suggestive of intestinal obstruction with the transitional zone suggested to be in the distal ileal loops at the mid-abdomen (immediately beneath the anterior abdominal wall). S/p 1L NSS at [facility]. NG tube placed at [facility]. Plan: -Routine SBO management with NPO/bowel rest status and IVF. PRN pain control and antiemetics. Appreciate general surgery consult. -KUB improving today, passing gas, will discuss with surgery NG tube removal given patient discomfort (2) Hypothyroidism: Plan: -Will need to resume home levothyroxine as able. (3) HTN (hypertension): Plan: -Will need to resume home antihypertensives as able. Routine BP monitoring. PRN IV hydralazine 5mg Q4H for SBP>180. (4) Hyperlipidemia: Plan: -Will need to resume home atorvastatin as able. (5) Rheumatoid arthritis: Plan: -On Enbrel and Rinvoq - will need to resume these medications as able. Plan Feeding/fluids: NPO Analgesia: tylenol, toradol Sedation: na Thromboprophylaxis: lovenox Head up position: na Ulcer prophylaxis: na Glycemic control: na Spontaneous breathing trial: na Bowel care: NG tube Indwelling catheter removal: na Deescalation of antibiotics: na I spent a total of 45 minutes in direct patient care, including [id number] time with the patient and/or family, reviewing medical records, ordering and reviewing diagnostic tests, and coordinating care with other healthcare providers. This time includes: history taking, physical examination, medical decision making, counseling, ECG interpretation, imaging interpretation, lab interpretation, orders, and education, excluding time spent in the performance of separately billed services. Admission and Anticipated Discharge Date Admission Date: April 11, 2024 Subjective Patient seen and examined at bedside. Ms. Sellers is doing ok today. She is struggling with the NG tube, as it is causing her discomfort. Review of Systems Review of Systems: CONSTITUTIONAL: Patient denies fevers, chills, sweats and weight changes. EYES: Patient denies any visual symptoms. EARS, NOSE, AND THROAT: throat pain CARDIOVASCULAR: Patient denies chest pains, palpitations, orthopnea and paroxysmal nocturnal dyspnea. RESPIRATORY: No dyspnea on exertion, no wheezing or cough. GI: discomfort with NG tube : No urinary hesitancy or dribbling. No nocturia or urinary frequency. No abnormal urethral discharge. MUSCULOSKELETAL: No myalgias or arthralgias. NEUROLOGIC: No chronic headaches, no seizures. Patient denies numbness, tingling or weakness. PSYCHIATRIC: Patient denies problems with mood disturbance. No problems with anxiety. ENDOCRINE: No excessive urination or excessive thirst. DERMATOLOGIC: Patient denies any rashes or skin changes. Physical Exam Physical Exam: Gen: A&O 3 NAD HEENT: NT tube placed to suction Neck: Supple, full range of motion, no observable masses, No meningeal sign. Lungs: No Respiratory distress. CV: RRR, no edema. Abdomen: Soft, nondistended, No rebound tenderness. MSK: No joint swelling, no redness. Skin: No rashes, petechiae, lesions. Normal color per patient. Neuro: Normal Gait, Grossly intact. Psych: Appropriate for situation. Results & Data Results & Data Vital Signs (Past 12 Hours) Vital Signs Temp Pulse Resp BP Pulse Ox O2 Del Method 04/13/24 07:42 37.0 C 73 16 122/67 91 Room Air Laboratory Results -personally reviewed, elevated sodium and chloride in setting of prior NS administration, low K of 3.3 Medications Administered Enoxaparin Sodium (Enoxaparin Inj 40 Mg/0.4 Ml Syr) 40 mg SQ QAM [facility] Stop: 05/13/24 08:59 Last Admin: 04/13/24 08:38 Dose: 40 mg Documented By: LONG Dextrose/Lactated Ringer's (D5w And Lactated Ringers) 1,000 mls @ 80 mls/hr IV .[id number] [facility] Stop: 04/13/24 16:59 Last Admin: 04/13/24 05:59 Dose: 80 mls/hr Documented By: Infusion: 04/13/24 05:59 Dose: Infused Documented By: Admin: 04/12/24 18:17 Dose: 80 mls/hr Documented By: ANDREINA Ketorolac Tromethamine (Ketorolac Tromethamine 15 Mg/Ml Vial) 15 mg IV Q6H PRN PRN Reason: Moderate Pain (Scale 4, 5, 6) Stop: 04/16/24 16:27 Last Admin: 04/12/24 16:07 Dose: 15 mg Documented By: Admin: 04/12/24 09:28 Dose: 15 mg Documented By: Admin: 04/11/24 17:56 Dose: 15 mg Documented By: ARMANDO Morphine Sulfate (Morphine Sulfate 2 Mg/Ml Carp) 2 mg IV Q4H PRN PRN Reason: Sev Pain (Scale 7-10) Stop: 04/25/24 16:26 Last Admin: 04/13/24 10:35 Dose: 2 mg Documented By: Admin: 04/13/24 05:54 Dose: 2 mg Documented By: MNLuh Admin: 04/12/24 23:01 Dose: 2 mg Documented By: MNLuh Admin: 04/12/24 18:47 Dose: 2 mg Documented By: Admin: 04/12/24 13:12 Dose: 2 mg Documented By: Admin: 04/12/24 06:10 Dose: 2 mg Documented By: MNLuh Admin: 04/11/24 23:47 Dose: 2 mg Documented By: MNLuh Admin: 04/11/24 19:35 Dose: 2 mg Documented By: PATSY Ondansetron HCl (Ondansetron Inj 2 Mg/Ml 2 Ml Vial) 4 mg IV Q6H PRN PRN Reason: Nausea Stop: 05/11/24 14:45 Last Admin: 04/13/24 01:56 Dose: 4 mg Documented By: Admin: 04/12/24 18:48 Dose: 4 mg Documented By: Admin: 04/12/24 06:11 Dose: 4 mg Documented By: MNLuh Admin: 04/11/24 23:47 Dose: 4 mg Documented By: MNLuh Admin: 04/11/24 17:56 Dose: 4 mg Documented By: AAH (2) Hypothyroidism Hypothyroidism type: unspecified Qualified Code(s): E03.9 - Hypothyroidism, unspecified (3) HTN (hypertension) Hypertension type: unspecified Qualified Code(s): I10 - Essential (primary) hypertension (4) Hyperlipidemia Hyperlipidemia type: unspecified Qualified Code(s): E78.5 - Hyperlipidemia, unspecified (5) Rheumatoid arthritis Rheumatoid arthritis location: unspecified site Rheumatoid factor presence: unspecified presence Qualified Code(s): M06.9 - Rheumatoid arthritis, unspecified
[2024-04-13] MEDS: POTASSIUM CHLORIDE CRTAB 20 MEQ TABCR PO STA (14:57)
--- NOTE | 2024-04-13 16:20 | Electrocardiogram Report ---
Test Reason : Blood Pressure : */* mmHG Vent. Rate : 77 BPM Atrial Rate : 77 BPM P-R Int : 134 ms QRS Dur : 82 ms QT Int : 370 ms P-R-T Axes : 65 -1 41 degrees QTcB Int : 418 ms Normal sinus rhythm Nonspecific T wave abnormality Abnormal ECG When compared with ECG of 14-Apr-1995 12:05, Nonspecific T wave abnormality is now Present Confirmed by Hai Perez ([id number]) on 04/13/2024 4:20:10 PM Referred By: Edwin Escoto Confirmed By: Hai Perez
[2024-04-13] MEDS: FIRST - Mouthwash BLM 5 ML UDP PO PRN (18:40)
[2024-04-14 07:03] LABS: Calcium 8.4 mg/dl (8.6-10.3); Magnesium 1.9 mg/dl (1.7-2.4); Potassium 3.9 mmol/L (3.5-5.1)
[2024-04-14 07:09] LABS: BUN Creatinine Ratio 11.5 (10-20); Creatinine Clr Calc Pharmacy 60.8 ml/min; Phosphorus 3.2 mg/dl (2.5-4.9)
[2024-04-14 07:11] LABS: Hematocrit (blood only) 35.6 % (37.0-47.0); Hemoglobin 11.8 g/dl (12.0-16.0); Mean Corpuscular Hemoglobin 32.1 pg (25.0-34.0); Mean Corpuscular Hgb Conc 33.1 g/dL (32.0-36.0); Mean Corpuscular Volume 96.7 fL (80.0-100.0); Mean Platelet Volume 10.7 fL (9.4-12.4); Platelet Count 150 K/uL (130-400); RDW Coefficient of Variation 14.7 % (11.5-14.5); RDW Standard Deviation 52.4 fL (36.4-46.3); Red Blood Count 3.68 M/uL (4.20-5.40); White Blood Count 5.09 K/ul (4.8-10.8)
[2024-04-14 07:21] VITALS: PULSE 69
--- NOTE | 2024-04-14 07:41 | Hospitalist Progress Note ---
Date of Service April 14, 2024 Assessment & Plan (1) Small bowel obstruction: Plan: Concepcion Sellers is a 74y/o F with hypothyroidism due to acquired atrophy of thyroid, HTN, HLD, uncomplicated asthma, GERD without esophagitis, SBO, vitamin B12 deficiency, lumbar DDD, plantar fasciitis, peripheral neuropathy, age- related osteoporosis, migraines, rheumatoid arthritis and history of LLE DVT/PE with pulmonary infarction (no longer on AC therapy) who is a direct transfer from [facility] with recurrent SBO requiring NG tube placement. -CTAP results from [facility] obtained with the following impression: dilated fluid-filled small bowel loops suggestive of intestinal obstruction with the transitional zone suggested to be in the distal ileal loops at the mid-abdomen (immediately beneath the anterior abdominal wall). S/p 1L NSS at [facility]. NG tube placed at [facility]. Plan: -Routine SBO management with NPO/bowel rest status and IVF. PRN pain control and antiemetics. Appreciate general surgery consult. -NGT removed yesterday - pt was started on clear liquid diet yesterday - now already on low fiber diet and tolerating, interested in DC (2) Hypothyroidism: Plan: - resumed home levothyroxine (3) HTN (hypertension): Plan: -resume home antihypertensives , hold losartn-HCTZ on DC for now, follow up with PCP (4) Hyperlipidemia: Plan: -resume home atorvastatin (5) Rheumatoid arthritis: Plan: -On Enbrel and Rinvoq - resume on DC Plan Thromboprophylaxis: lovenox Admission and Anticipated Discharge Date Admission Date: April 11, 2024 Subjective Pt seen in follow up of SOP, NGT removed yesterday surgery following- advanced diet to low fiber and pt tells me she is tolerating well and asking about discharge Had multiple BMs yesterday and pt says since then she has not had any more abd. pain Review of Systems Review of Systems: All systems reviewed & are unremarkable except as noted in Subjective Physical Exam Physical Exam: Gen: WD/WN F in NAD, A&O 3 NAD HEENT: NC/AT Neck: Supple Lungs: No Respiratory distress. CTAB. CV: RRR, no edema. Abdomen: Soft, nondistended, Nontender to palp. MSK: moves extremities Skin: warm, dry Neuro: awake, alert, answers appropriately, speech fluent, moves extremities Psych: Appropriate for situation. Results & Data Results & Data Vital Signs (Past 12 Hours) Vital Signs Temp Pulse Resp BP Pulse Ox O2 Del Method 04/14/24 07:19 36.9 C 69 16 119/75 94 Room Air 04/13/24 21:18 36.9 C 70 18 152/75 H 95 Room Air Laboratory Results 04/14/24 04/13/24 Range/Units 06:07 06:19 WBC 5.09 (4.8-10.8) K/ul RBC 3.68 L (4.20-5.40) M/uL Hgb 11.8 L (12.0-16.0) g/dl Hct 35.6 L (37.0-47.0) % MCV 96.7 (80.0-100.0) fL MCH 32.1 (25.0-34.0) pg MCHC 33.1 (32.0-36.0) g/dL RDW Std Deviation 52.4 H (36.4-46.3) fL RDW Coeff of Elsy 14.7 H (11.5-14.5) % Plt Count 150 (130-400) K/uL MPV 10.7 (9.4-12.4) fL Sodium 145 147 H (136-145) mmol/L Potassium 3.9 3.3 L (3.5-5.1) mmol/L Chloride 112 H 111 H (98-107) mmol/L Carbon Dioxide 28 29 (21-32) mmol/L Anion Gap 5 7 (3-11) BUN 9 20 (6-23) mg/dl Creatinine 0.78 0.91 (0.6-1.2) mg/dl Est Cr Clr Drug Dosing 60.8 52.1 ml/min eGFR 79.65 66.20 BUN/Creatinine Ratio 11.5 22.0 H (10-20) Glucose 97 107 H (70-99(Fasting)) mg/dl Calcium 8.4 L 8.5 L (8.6-10.3) mg/dl Phosphorus 3.2 4.0 (2.5-4.9) mg/dl Magnesium 1.9 2.1 (1.7-2.4) mg/dl Medications Administered Current Inpatient Medications Acetaminophen (Acetaminophen 325 Mg Tab) 650 mg PO Q4H PRN PRN Reason: pain/fever Stop: 05/11/24 14:45 Artificial Tears (Artificial Tears) 1 drops OP QID PRN PRN Reason: Dryness Stop: 05/11/24 19:14 Enoxaparin Sodium (Enoxaparin Inj 40 Mg/0.4 Ml Syr) 40 mg SQ QAM JOSE Stop: 05/13/24 08:59 Last Admin: 04/13/24 08:38 Dose: 40 mg Ketorolac Tromethamine (Ketorolac Tromethamine 15 Mg/Ml Vial) 15 mg IV Q6H PRN PRN Reason: Moderate Pain (Scale 4, 5, 6) Stop: 04/16/24 16:27 Last Admin: 04/12/24 16:07 Dose: 15 mg Morphine Sulfate (Morphine Sulfate 2 Mg/Ml Carp) 2 mg IV Q4H PRN PRN Reason: Sev Pain (Scale 7-10) Stop: 04/25/24 16:26 Last Admin: 04/13/24 10:35 Dose: 2 mg Multi-Ingredient Mouthwash/Gargle (First - Mouthwash Blm 5 Ml Udp) 5 ml PO Q8 PRN PRN Reason: sore throat/mouth Stop: 05/13/24 13:59 Last Admin: 04/13/24 18:40 Dose: 5 ml Ondansetron HCl (Ondansetron Inj 2 Mg/Ml 2 Ml Vial) 4 mg IV Q6H PRN PRN Reason: Nausea Stop: 05/11/24 14:45 Last Admin: 04/13/24 01:56 Dose: 4 mg (2) Hypothyroidism Hypothyroidism type: unspecified Qualified Code(s): E03.9 - Hypothyroidism, unspecified (3) HTN (hypertension) Hypertension type: unspecified Qualified Code(s): I10 - Essential (primary) hypertension (4) Hyperlipidemia Hyperlipidemia type: unspecified Qualified Code(s): E78.5 - Hyperlipidemia, unspecified (5) Rheumatoid arthritis Rheumatoid arthritis location: unspecified site Rheumatoid factor presence: unspecified presence Qualified Code(s): M06.9 - Rheumatoid arthritis, unspecified
[2024-04-14] MEDS ORDERED: IBUPROFEN 200 MG TAB PO PRN (07:59)
--- NOTE | 2024-04-14 07:59 | Surgery Progress Note ---
Date of Service April 14, 2024 Assessment & Plan (1) Small bowel obstruction: Plan: Pt with history of JHON, open yayo, appy here with concern for SBO WBC wnl Vitals stable NGT removed yesterday and she has since been tolerating a liquid diet without n/v/worsening pain expresses discomfort in R upper abd she believes is secondary to her costochondritis. will add heat application and can use tylenol and prn po meds if needed + gas with + BMs noted Will advance diet to fulls, if tolerates this may continue to adv to low fiber diet Pt has questions about resumption of her home meds, we are okay with her taking po pills No plans for surgical intervention, please call with questions/concerns Admission and Anticipated Discharge Date Admission Date: April 11, 2024 Supervising Physician Co-Signing Physician Notes Patient seen and examined, agree with above. Transferred from [facility] for small bowel obstruction likely secondary to adhesions from prior surgery. Passing gas, had multiple liquid bowel movements over the past 12 hours. Feels better. Tolerated full liquids. On exam she is afebrile with stable vitals. Abdomen is soft, nondistended, nontender. Will advance to low fiber diet, okay for discharge this afternoon if tolerates. Subjective patient says she has abdominal soreness. when prompted further this appears mostly in her R upper abdomen/rib region. she said she does have costochondritis and is wondering if she can have some pain meds for this. Otherwise she is tolerating clears no nausea/vomiting. she is passing gas and having BMs Physical Exam Physical Exam: awake/alert, no distress Gastrointestinal (Abdomen): Inspection/Auscultation: abdomen not distended Percussion/Palpation: + abdomen tender (mild infraumbilical discomfort and some r mid/upper discomfort to palpation) and abdomen soft Results & Data Vital Signs (Past 12 Hours) Vital Signs Temp Pulse Resp BP Pulse Ox O2 Del Method 04/14/24 07:19 98.4 F 69 16 119/75 94 Room Air 04/13/24 21:18 98.4 F 70 18 152/75 H 95 Room Air PG Care Time/CCT Total # of Minutes Spent Total Time Spent with Patient: Total time spent is greater than 50% in coordination of care (as documented) at patient's floor/unit and/or counseling patient: Coding Level of Care Code 70699 SUB INP/OBS CARE 03/05MIN Diagnoses Small bowel obstruction K56.609
[2024-04-14] MEDS: traMADol HCL 50 MG TABLET PO PRN (08:29)
[2024-04-14] MEDS: LEVOTHYROXINE SODIUM 25 MCG TABLET PO SCH (11:25)
[2024-04-14 13:28] VITALS: BP 143/85; RESP 18; TEMP 98.6; O2SAT 95
--- NOTE | 2024-04-14 14:32 | Discharge Summary ---
Date of Service April 14, 2024 Admission HPI Per Admitting Provider Concepcion Sellers is a 74y/o F with PMHx significant for hypothyroidism due to acquired atrophy of thyroid, HTN, HLD, uncomplicated asthma, GERD without esophagitis, SBO, vitamin B12 deficiency, lumbar DDD, plantar fasciitis, peripheral neuropathy, age-related osteoporosis, migraines, rheumatoid arthritis and history of LLE DVT/PE with pulmonary infarction (no longer on AC therapy) who is a direct transfer from [facility] with recurrent SBO requiring NG tube placement. History obtained from the patient, paperwork provided by [facility] and associated chart review. Mentions she started to develop abdominal discomfort yesterday afternoon with pain across her lower abdominal region. She then started to experience numerous episodes of nausea and vomiting in the evening which prompted the call to EMS as she started to become quite dizzy. Mentions she vomited "well over 45 times." She was evaluated at [facility] and diagnosed with a SBO. NG tube was placed. [facility] unfortunately does not have general surgery services on-site, thus the reasoning for her transfer here to [facility]. CTAP results from [facility] obtained with the following impression: dilated fluid-filled small bowel loops suggestive of intestinal obstruction with the transitional zone suggested to be in the distal ileal loops at the mid-abdomen (immediately beneath the anterior abdominal wall). S/p 1L NSS at [facility]. This is her 4th SBO. Last SBO was about 10-12 years ago. All prior SBOs have been managed conservatively. PSHx significant for total abdominal hysterectomy at age 36, open cholecystectomy in her 20s and appendectomy. Last BM was yesterday afternoon - patient reports this was small and formed. Did pass some flatulence this afternoon. No further nausea/vomiting since NG tube was placed. Admission Exam Per Admitting Provider General: WD/WN, NAD, sitting up in bed, very pleasant, conversing appropriately. A+Ox3, euthymic affect. HEENT: Normocephalic, atraumatic. Conjunctivae normal. External ear and nose normal, oropharynx normal. Respiratory: Normal respiratory effort, lungs clear to auscultation. No accessory muscle use. Cardiovascular: Regular rate/rhythm, normal peripheral pulses, no BLE edema. Abdomen/GI: Hypoactive bowel sounds, soft, mild TTP across lower abdomen. Nondistended. + midline abdominal surgical scar. Extremities/Musculoskeletal: No cyanosis or clubbing, extremities motor strength intact, moves all extremities. Neurologic: No overt focal deficits, CN's II-XI not formally tested but appear g rossly intact bilaterally. Principal Diagnosis Small bowel obstruction Discharge Exam Gen: WD/WN F in NAD, A&O 3 NAD HEENT: NC/AT Neck: Supple Lungs: No Respiratory distress. CTAB. CV: RRR, no edema. Abdomen: Soft, nondistended, Nontender to palp. MSK: moves extremities Skin: warm, dry Neuro: awake, alert, answers appropriately, speech fluent, moves extremities Psych: Appropriate for situation. Discharge Data Allergies Allergy/AdvReac Type Severity Reaction Status Date / Time amoxicillin Allergy Intermediate HIVES Verified 08/25/16 11:08 phenazopyridine Allergy Intermediate HIVES Verified 08/25/16 11:08 Nitrate Analogues Allergy Unknown Unverified 03/16/09 03:42 nitrofurantoin Allergy Unknown Unverified 03/16/09 03:42 propoxyphene Allergy Unknown Unverified 03/16/09 03:42 Consultations 04/11/24 14:46 Consult General Surgery Routine Hospital Course (1) Small bowel obstruction: Concepcion Sellers is a 74y/o F with hypothyroidism due to acquired atrophy of thyroid, HTN, HLD, uncomplicated asthma, GERD without esophagitis, SBO, vitamin B12 deficiency, lumbar DDD, plantar fasciitis, peripheral neuropathy, age- related osteoporosis, migraines, rheumatoid arthritis and history of LLE DVT/PE with pulmonary infarction (no longer on AC therapy) who is a direct transfer from [facility] with recurrent SBO requiring NG tube placement. -CTAP results from [facility] obtained with the following impression: dilated fluid-filled small bowel loops suggestive of intestinal obstruction with the transitional zone suggested to be in the distal ileal loops at the mid-abdomen (immediately beneath the anterior abdominal wall). S/p 1L NSS at [facility]. NG tube placed at [facility]. Plan: -Routine SBO management with NPO/bowel rest status and IVF. PRN pain control and antiemetics. Appreciate general surgery consult. -NGT removed yesterday - pt was started on clear liquid diet yesterday - now already on low fiber diet and tolerating, interested in DC (2) Hypothyroidism: - resumed home levothyroxine (3) HTN (hypertension): -resume home antihypertensives , hold losartn-HCTZ on DC for now, follow up with PCP (4) Hyperlipidemia: -resume home atorvastatin (5) Rheumatoid arthritis: -On Enbrel and Rinvoq - resume on DC Total Time Total Time Spent Total Time Spent (In Minutes): 40 Discharge Plan Discharge Items Patient Disposition: Home - Self-Care Reason For Visit: SOB - SURGICAL INTERVENTION Discharge Diagnosis: Small bowel obstruction Activity: Per Instructions section Non-emergency contact: Primary Care Provider Call non-emergency contact if: you have any medication questions and your symptoms worsen Follow-up/Referrals: Tawana Espinoza MD [Outside Practitioners] - 04/20/24 9:00 am (Date & Time 04/20/2024 9:00 AM Provider: Loreta Daniel MD Family Medicine [facility] ) Diet: Low Fiber Addtl Attending Provider Instructions: Follow up with primary care doctor within 1-2 weeks. For now, continue with low fiber diet, after a few weeks advance to diet with more fiber. Make sure to stay well hydrated. Pending Studies at Discharge: No Stand-Alone Forms: My [facility], Smoking Cessation Medications and DC Order Prescriptions: Continued ATORVASTATIN (LIPITOR) 20 MG tablet 20 mg PO DAILY Qty: 0 polyethylene glycol 3350 [Miralax] 17 gram Powder In Packet 17 g PO DAILY cetirizine 10 mg Tablet 10 mg PO DAILY rizatriptan 10 mg Tablet See Rx Instructions .ROUTE .COMPLEX PRN (Reason: Migraines) Rx Instructions: 10 mg orally ;Take 1 Tablet by mouth as needed for migraine at onset, may repeat every 2 hours up to 2 times. Up to 3 tablets in 24 hours. cyanocobalamin (vitamin B-12) 1,000 mcg Tablet 1,000 mcg PO DAILY topiramate [Topamax] 25 mg Tablet 25 mg PO BID levothyroxine [Euthyrox] 25 mcg Tablet 25 mcg PO DAILY amlodipine 10 mg Tablet 10 mg PO DAILY Premarin 0.625 mg/gram Cream See Rx Instructions .ROUTE .COMPLEX Rx Instructions: APPLY 0.5 GRAMS VAGINALLY TWICE A WEEK. esomeprazole magnesium 40 mg Capsule,Delayed Release(Dr/Ec) 40 mg PO DAILY montelukast 10 mg Tablet 10 mg PO DAILY metoprolol succinate 25 mg Tablet Extended Release 24 Hr 25 mg PO DAILY azelastine 137 mcg (0.1 %) [place],Non-Aerosol 1 spray INTRANASAL BID Rx Instructions: administer into each nostril Calcium + Vitamin D 600 mg calcium- 200 unit Tablet 1 tab PO DAILY albuterol sulfate 90 mcg/actuation Hfa Aerosol Inhaler 2 puff INHALATION Q6H PRN (Reason: SOB or Wheezing) fluticasone propionate 50 mcg/actuation [place],Suspension 1 spray INTRANASAL BID Rx Instructions: administer into each nostril cyclosporine [Restasis] 0.05 % Dropperette 1 drp OPHTHALMIC (EYE) Q12H Rx Instructions: PLACE ONE DROP IN EACH EYE TWICE DAILY. cholecalciferol (vitamin D3) 25 mcg (1,000 unit) Tablet 25 mcg PO DAILY propylene glycol 0.6 % Drops 1 drp OPHTHALMIC (EYE) DAILY Rx Instructions: Instill 1 Drop into eye in the morning. Linzess 290 mcg Capsule 290 mcg PO QAM Movantik 12.5 mg Tablet 25 mg PO QAM Rx Instructions: must be taken on empty stomach; no food 1 hr after or 2-3 hrs before dose Rinvoq 15 mg Tablet Extended Release 24 Hr 15 mg PO DAILY Ozempic 0.25 mg or 0.5 mg (2 mg/3 mL) Pen Injector 0.5 mg SUBCUT WK hydrocodone-acetaminophen 5-325 mg Tablet 1 tab PO Q12H PRN (Reason: Back Pain) sucralfate 1 gram tablet 1 g PO QID Rx Instructions: Take 1 Tablet by mouth 4 times a day before meals and at bedtime. half an hour before meals and at bedtime gabapentin 300 mg capsule 300 mg PO BID oxybutynin chloride 5 mg tablet 5 mg PO BID Enbrel SureClick 50 mg/mL (1 mL) pen injector 50 mg SUBCUT WK Rx Instructions: Inject 1 pen(s) subcutaneously once weekly. Trulance 3 mg tablet 3 mg PO DAILY Held losartan-hydrochlorothiazide 100-25 mg Tablet 1 tab PO DAILY Hold Instructions: Resume on 04/21/24. until seen by your primary care doctor Discharge Orders: Discharge Order (Routine); Ordered 04/14/24 Ordered By: Wagner White Admission Data Admit Date/Time: 04/11/24 15:52 Attending Provider: Wagner White Admit Provider: Trevin Moreno Primary Care Provider: [facility] Leblanc Other Providers: Darius Doherty; John Haley
[2024-04-15] MEDS ORDERED: METOPROLOL SUCC 25MG EXT REL TAB PO SCH (09:00)
[2024-04-15] MEDS ORDERED: PANTOprazole 40 MG TAB PO SCH (09:00)
== END 2024-04-14 15:52 | disposition home or self-care (01) | DRG 390 ==
LOC: 3W 15:52 → SUATTDRO 15:52